=== PATIENT | male | born 1935 | race Caucasian/White ===

== ENCOUNTER 2017-08-17 15:46 | Emergency (ER) ==
[2017-08-17 15:51] VITALS: BP 221/99; TEMP 98.1; BMI 25.0
--- NOTE | 2017-08-17 16:54 | ED.PDOC ---
General ED Provider: Dr. BARRY HOU Chief Complaint: Finger Pain/Injury Stated Complaint: Lt middle finger swollen and painful; Onset yesterday morning. Has worsened and now is inflamed, more swollen with pain extending into dorsum of mid had with suggestions of red streaking moving proximal into distal forearm at wrist. Has similar event several years ago but is much worse now Time Seen by Physician: 16:35 Mode of Arrival: Walk-In Information Source: Patient Exam Limitations: No limitations Primary Care Provider: CHACORTA KELLY Referred to ED by: PCP Nursing and Triage Documentation Reviewed and Agree: Yes Reviewed sepsis parameters & appropriate labs ordered?: Yes System Inflammatory Response Syndrome: Not Applicable Sepsis Protocol: For patient's 13 years and over: Temp is 96.8 and below OR 101 and greater Pulse >90 BPM Resp >20/minute Acutely Altered Mental Status Are patient's symptoms suggestive of a new infection, such as: -Pneumonia -Skin, Soft Tissue -Endocarditis -UTI -Bone, Joint Infection -Implantable Device -Acute Abdominal Infection -Wound Infection -Meningitis -Blood Stream Catheter Infection -Unknown System Inflammatory Response Syndrome: Not Applicable Musculoskeletal Complaint Exam - Hand/Wrist Complaint/Exam Location of Pain: Reports: Left, Digit #3 Mechanism of Injury: Reports: No known trauma Onset/Duration: 2 days Symptoms Are: Worse Onset of Pain: Reports: Immediate Initial Severity: Severe Current Severity: Severe Location: Reports: Discrete Character: Reports: Sharp, Dull, Aching, Throbbing Alleviating: Reports: None Aggravating: Reports: Movement Associated Signs and Symptoms: Reports: Swelling, Redness, Fever, Tingling Related History: Reports: Similar episode Dominant Hand: Right Related Surgical History: Reports: None Hand/Wrist Findings: Present: Swelling, Erythema, Warmth Tenderness: Present: Phalanx (3rd metacarpal phalyngeal joint to distal phalynx) Review of Systems - Review Of Systems Constitutional: Reports: No symptoms Eyes: Reports: No symptoms Ears, Nose, Mouth, Throat: Reports: No symptoms Respiratory: Reports: No symptoms Cardiac: Reports: No symptoms GI: Reports: No symptoms : Reports: No symptoms Musculoskeletal: Reports: No symptoms, Joint pain, Joint swelling Skin: Reports: No symptoms Neurological: Reports: No symptoms Endocrine: Reports: No symptoms Hematologic/Lymphatic: Reports: No symptoms All Other Systems: Reviewed and Negative Past Medical History - Past Medical History Previously Healthy: Yes Endocrine: Reports: None Cardiovascular: Reports: Hypertension, Other (hyperlipidemia; takes plavix) Respiratory: Reports: None Hematological: Reports: None Gastrointestinal: Reports: None Genitourinary: Reports: None Neuro/Psych: Reports: None Musculoskeletal: Reports: Arthritis Cancer: Reports: None - Surgical History General Surgical History: Reports: None - Family History Family History: Reports: Unknown - Social History Smoking Status: Current every day smoker, Heavy tobacco smoker Hx Substance Use: No Alcohol Screening: Heavy - Immunizations Tetanus Shot up to Date: No Physical Exam - Physical Exam Appearance: Ill-appearing, Obese Ill-appearing: Moderate Pain Distress: Mild Eyes: DEDE, EOMI, Conjunctiva clear ENT: Ears normal, Nose normal, Oropharynx normal Respiratory: Airway patent, Breath sounds clear, Breath sounds equal, Respirations nonlabored Cardiovascular: RRR, Pulses normal, No rub, No murmur GI/: Soft, Nontender, No masses, Bowel sounds normal, No Organomegaly Musculoskeletal: Normal strength (Lt hand redness and swelling with ascending lymphangitis) Skin: Warm, Dry Neurological: Sensation intact, Motor intact, Alert, Oriented Psychiatric: Affect appropriate, Mood appropriate Critical Care Note - Critical Care Note Total Time (mins): 0 Course - Course Hematology/Chemistry: 08/17/17 15:15 08/17/17 17:15 Orders, Labs, Meds: Lab Review 08/17/17 08/17/17 15:15 17:15 WBC 8.50 RBC 4.40 L Hgb 15.0 Hct 42.9 MCV 97.5 H MCH 34.1 H MCHC 35.0 RDW Coeff of Elsa 12.9 Plt Count 173 Immature Gran % (Auto) 0.4 Neut % (Auto) 79.8 Lymph % (Auto) 9.2 L [place] % (Auto) 8.6 Eos % (Auto) 1.5 Baso % (Auto) 0.5 Immature Gran # (Auto) 0.0 Neut # (Auto) 6.8 Lymph # (Auto) 0.8 [place] # (Auto) 0.7 Eos # (Auto) 0.1 Baso # (Auto) 0.0 ESR 26 H Sodium 137 Potassium 4.3 Chloride 100 Carbon Dioxide 25 Anion Gap 16.3 BUN 22 H Creatinine 1.05 Estimated GFR (MDRD) 68.00 BUN/Creatinine Ratio 20.95 Glucose 102 Uric Acid 6.9 Calcium 9.6 Total Bilirubin 0.5 AST 16 ALT 14 Alkaline Phosphatase 117 Total Protein 7.5 Albumin 3.8 Globulin 3.7 Albumin/Globulin Ratio 1.03 Orders Category Date Time Status IV [ED IV/MEDIPORT/POWERPORT] .ONCE EMERGENCY 08/17/17 17:01 Active BLOOD CULTURE (ED ONLY) Stat LAB 08/17/17 15:15 Received CBC W/ AUTO DIFF Stat LAB 08/17/17 15:15 Completed CMP [COMPREHENSIVE METABOLIC PANEL] Stat LAB 08/17/17 17:15 Completed ESR Stat LAB 08/17/17 15:15 Completed RHEUMATOID ARTHRITIS FACTOR Stat LAB 08/17/17 15:15 Received URIC ACID Stat LAB 08/17/17 17:15 Completed 0.9 % Sodium Chloride [Saline Flush] MEDS 08/17/17 17:01 Active 1 syr IVF PRN PRN Clindamycin Phosphate Inj [Cleocin] MEDS 08/17/17 17:27 Discontinued 600 mg .ROUTE .STK-MED ONE Clindamycin Phosphate Inj [Cleocin] 600 mg MEDS 08/17/17 17:04 Discontinued 0.9 % Sodium Chloride [Sodium Chloride] 100 ml IV ONCE Methylprednisolone Sod Succ/Pf [Solu-Medrol 125 mg] 250 MEDS 08/17/17 18:22 Ordered mg 0.9 % Sodium Chloride [Sodium Chloride] [address] HAND LEFT WITHOUT CONTRAST Stat RADS 08/17/17 17:01 Completed Medications Generic Name Dose Route Start Last Admin Trade Name Freq PRN Reason Stop Dose Admin Methylprednisolone Sodium 54 mls @ 100 mls/hr 08/17/17 18:22 Succinate 250 mg/ Sodium IV 08/17/17 18:54 Chloride ONCE ONE Sodium Chloride 1 syr 08/17/17 17:01 08/17/17 17:44 Saline Flush IVF 1 syr PRN PRN Administration To flush IV Discontinued Medications Generic Name Dose Route Start Last Admin Trade Name Freq PRN Reason Stop Dose Admin Clindamycin Phosphate 600 mg/ 104 mls @ 208 mls/hr 08/17/17 17:04 08/17/17 17 :43 Sodium Chloride IV 08/17/17 17:33 208 mls/hr ONCE ONE Administration Vital Signs: Temp Pulse Resp BP Pulse Ox 08/17/17 15:47 98.1 F 79 20 221/99 H 95 Departure - Departure Time of Disposition: 18:30 Disposition: ADMITTED INPATIENT Discharge Problem: Cellulitis and abscess of hand Instructions: Cellulitis (ED), Connective Tissue Disorders (ED) Condition: Good Pt referred to PMD for follow-up: Yes (Dr Shafer agrees to accept pt for admit) IPMP verified?: No Allergies/Adverse Reactions: Allergies No Known Allergies Allergy (Verified 08/17/17 15:51) Home Medications: Ambulatory Orders Amlodipine Besylate [Norvasc] 5 mg PO BID 12/19/13 Clonidine HCl [Catapres] 0.1 mg PO TID 12/19/13 Clopidogrel Bisulfate [Clopidogrel] 75 mg PO DAILY 12/19/13 Lisinopril [Zestril] 40 mg PO DAILY 12/19/13 Metoprolol Tartrate [Lopressor] 50 mg PO BID 12/19/13 [place]-3 Acid Ethyl Esters [Lovaza] 1 gm PO BID 12/19/13 Rosuvastatin Calcium [Crestor] 10 mg PO BEDTIME 12/19/13 Spironolactone [Aldactone] 12.5 mg PO DAILY 12/19/13 Disposition Discussed With: Patient
[2017-08-17] MEDS ORDERED: CLEOCIN 600 MG in SODIUM CHLORIDE 100 ML IV ONE (17:04)
[2017-08-17] MEDS ORDERED: CLEOCIN ONE (17:27)
--- NOTE | 2017-08-17 18:05 | CT ---
EXAM: CT of the right hand without contrast HISTORY: Hand cellulitis swelling, third phalanx COMPARISON: None available. TECHNIQUE: Noncontrast CT of the right hand FINDINGS: Noncontrast technique limits evaluation of soft tissues. A lucent lesion is seen within the distal po sterior aspect of the radius without cortical destruction. There is a cyst within the lunate. There is mild narrowing marginal osteophyte formation of the first CMC joint. There is a small subcortica l cyst of the first metacarpal head. There is narrowing and marginal osteophyte formation of the fir st interphalangeal joint. There is severe joint space loss of the third PIP joint marginal osteophyte formation. There is a small periarticular cyst or erosion of the base of the third middle phalanx a s seen on sagittal image 38. Numerous calcifications are seen within the soft tissues adjacent to the third PIP joint. There is subcutaneous edema and soft tissue swelling of the third digit. No drainab le fluid collection is seen. No fracture or dislocation is seen. 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 Findings are nonspecific but could be related to CPPD, inflammatory arthritis or other etiology. Follow-up is recommended to document stability. Soft tissue swelling of the third digit which could represent cellulitis. No drainable fluid collect ion. Nonaggressive appearing lucent lesion of the distal radius for which radiographic follow up is recomm ended.
[2017-08-17] MEDS ORDERED: SOLU-MEDROL 125 MG 250 MG in SODIUM CHLORIDE 50 ML IV ONE (18:22)
[2017-08-17] MEDS ORDERED: SOLU-MEDROL 125 MG IVP STA (18:47)
== END 2017-08-17 19:04 | disposition other institution (70) ==
LOC: ED 15:46
DX: L03.114 Cellulitis of left upper limb (principal); L02.512 Cutaneous abscess of left hand; I10 Essential (primary) hypertension; E78.5 Hyperlipidemia, unspecified; F17.210 Nicotine dependence, cigarettes, uncomplicated; Z79.899 Other long term (current) drug therapy
CPT/HCPCS: 36415; 80053; 84550; 85025; 85651; 86430; 87040; 96365; 96375; 99283

== ENCOUNTER 2017-10-06 19:51 | Emergency (ER) | payer OTHER ==
[2017-10-06 19:59] VITALS: BP 170/89; TEMP 99.8; BMI 25.9
[2017-10-06] MEDS ORDERED: NITROSTAT SL STA (20:00)
[2017-10-06] MEDS ORDERED: ASPIRIN CHEWABLE PO STA (20:00)
--- NOTE | 2017-10-06 20:07 | ED.PDOC ---
General ED Provider: Dr. BARRY GLEZ-ER Chief Complaint: Chest Pain Stated Complaint: my chest hurts Time Seen by Physician: 20:05 Mode of Arrival: Walk-In Information Source: Patient Exam Limitations: No limitations Primary Care Provider: CHACORTA KELLY Nursing and Triage Documentation Reviewed and Agree: Yes Reviewed sepsis parameters & appropriate labs ordered?: Yes System Inflammatory Response Syndrome: Not Applicable Sepsis Protocol: For patient's 13 years and over: Temp is 96.8 and below OR 101 and greater Pulse >90 BPM Resp >20/minute Acutely Altered Mental Status Are patient's symptoms suggestive of a new infection, such as: -Pneumonia -Skin, Soft Tissue -Endocarditis -UTI -Bone, Joint Infection -Implantable Device -Acute Abdominal Infection -Wound Infection -Meningitis -Blood Stream Catheter Infection -Unknown Cardiovascular Complaint Exam - Chest Pain Complaint/Exam Onset: Gradual Duration: one hour Symptoms Are: Still present Timing: Constant Length of Chest Pain Episodes: 1 hr Initial Severity: Mild Current Severity: Moderate Location: Reports: Discrete Pain Radiates: Reports: Left arm Character: Reports: Dull, Aching, Heaviness, Pressure Aggravating: Reports: None Associated Signs and Symptoms: Reports: Short of air History of Healthcare-Acquired Pneumonia: Reports: No AMI/ACS Risk Factors: Reports: Myocardial Infarction Pulmonary Embolism Risk Factors: Reports: None Prior Care for this Complaint: No Recent Stress Test: No Recent Echo/LV Function: No JVD Present: No Subcutaneous Emphysema Present: No Diminshed Breath Sounds: No Reproducible Chest Wall Pain: No Bilateral Pulses Present: Yes Unequal Pulses Noted: No Differential Diagnoses: Acute IN, ACS Quality Indicator For Non-Traumatic Chest Pain/Syncope: EKG Performed Review of Systems - Review Of Systems Constitutional: Reports: No symptoms Eyes: Reports: No symptoms Ears, Nose, Mouth, Throat: Reports: No symptoms Respiratory: Reports: Short of air Cardiac: Reports: Chest pain GI: Reports: No symptoms : Reports: No symptoms Musculoskeletal: Reports: No symptoms Skin: Reports: No symptoms Neurological: Reports: No symptoms Endocrine: Reports: No symptoms Hematologic/Lymphatic: Reports: No symptoms All Other Systems: Reviewed and Negative Past Medical History - Past Medical History Previously Healthy: Yes Endocrine: Reports: None Cardiovascular: Reports: Hypertension, Other (hyperlipidemia; takes plavix) Respiratory: Reports: None Hematological: Reports: None Gastrointestinal: Reports: None Genitourinary: Reports: None Neuro/Psych: Reports: None Musculoskeletal: Reports: Arthritis Cancer: Reports: None - Surgical History General Surgical History: Reports: None - Family History Family History: Reports: Unknown - Social History Smoking Status: Current every day smoker, Heavy tobacco smoker Hx Substance Use: No Alcohol Screening: Heavy Lives: With family - Immunizations Tetanus Shot up to Date: No Physical Exam - Physical Exam Appearance: Well-appearing, No pain distress, Well-nourished Pain Distress: Moderate Eyes: DEDE ENT: Ears normal Neck: Supple Respiratory: Airway patent, Breath sounds clear, Breath sounds equal, Respirations nonlabored Cardiovascular: RRR, Pulses normal, No rub, No murmur GI/: Soft, Nontender, No masses, Bowel sounds normal, No Organomegaly Musculoskeletal: Normal strength, ROM intact, No edema, No calf tenderness Skin: Warm, Dry, Normal color Neurological: Sensation intact, Motor intact, Reflexes intact, Cranial nerves intact, Alert, Oriented Psychiatric: Affect appropriate, Mood appropriate, Anxious Interpretation - Radiology Interpretation Radiology Interpretation By: Radiologist Radiology Results: Negative Exam Interpreted: Portable CXR - EKG Interpretation Time of EKG #1: 20:07 Rate: Normal Rhythm: Sinus Ectopy: None [place]: NL Interpretation: nsr Re-Evaluation - Re-Evaluation Time of Re-Evaluation: 20:07 Status: Improved Vital Signs Stable: Yes Pain Level: 0 Appearance: NAD Lungs: Clear Skin: Warm and Dry Neuro: Alert and Oriented X3 CV: RRR Physician Notification - Case Discussed Physician Notified: dr sanchez Time of Notification: 20:12 Critical Care Note - Critical Care Note Total Time (mins): 20 Course - Course Hematology/Chemistry: 10/06/17 20:00 Orders, Labs, Meds: Lab Review 10/06/17 20:00 WBC 7.63 RBC 4.02 L Hgb 13.4 L Hct 38.1 L MCV 94.8 H MCH 33.3 H MCHC 35.2 RDW Coeff of Elsa 14.0 Plt Count 148 Immature Gran % (Auto) 0.4 Neut % (Auto) 69.8 Lymph % (Auto) 15.6 [place] % (Auto) 10.9 H Eos % (Auto) 2.9 Baso % (Auto) 0.4 Immature Gran # (Auto) 0.0 Neut # (Auto) 5.3 Lymph # (Auto) 1.2 [place] # (Auto) 0.8 Eos # (Auto) 0.2 Baso # (Auto) 0.0 Orders Category Date Time Status EKG-(ED ONLY) Stat CARDIO 10/06/17 19:58 Ordered TRANSFER TO OUTSIDE FACILITY .TO [facility] ( CARE 10/06/17 20:08 Active BETTY WEISS) WRITE TRANSFER/SBAR NOTE ONCE CARE 10/06/17 20:08 Active DISCHARGE ASSESSMENT ONCE DISCHARGE 10/06/17 20:08 Active WRITE DISCHARGE NOTE ONCE DISCHARGE 10/06/17 20:08 Active Crank Hand [ED POULTRY VACCINATOR APPLIED] .ONCE EMERGENCY 10/06/17 19:59 Active ED APPLY O2 .ONCE EMERGENCY 10/06/17 19:58 Active IV [ED IV/MEDIPORT/POWERPORT] .ONCE EMERGENCY 10/06/17 20:07 Active AMYLASE Stat LAB 10/06/17 20:00 Received CBC W/ AUTO DIFF Stat LAB 10/06/17 20:00 Completed COMPREHENSIVE METABOLIC PANEL Stat LAB 10/06/17 20:00 Received CREATINE KINASE Stat LAB 10/06/17 20:00 Received LIPASE Stat LAB 10/06/17 20:00 Received TROPONIN I Stat LAB 10/06/17 20:00 Received 0.9 % Sodium Chloride [Saline Flush] MEDS 10/06/17 20:07 Ordered 1 syr IVF PRN PRN Aspirin [Aspirin Chewable] MEDS 10/06/17 20:00 Discontinued 324 mg PO ONCE STA Morphine Sulfate [Morphine 2 mg/ml Syringe] MEDS 10/06/17 20:08 Ordered 2 mg IVP Q4H PRN Nitroglycerin [Nitrostat] MEDS 10/06/17 20:00 Discontinued 0.4 mg SL ONCE STA Ondansetron HCl/Pf [Zofran 4 mg/2 ml] MEDS 10/06/17 20:09 Discontinued 4 mg IVP ONCE STA CXR [CHEST, 1V AP ONLY] Stat RADS 10/06/17 19:58 Ordered Medications Generic Name Dose Route Start Last Admin Trade Name Freq PRN Reason Stop Dose Admin Morphine Sulfate 2 mg 10/06/17 20:08 Morphine 2 Mg/Ml Syringe IVP Q4H PRN Chest Pain Sodium Chloride 1 syr 10/06/17 20:07 Saline Flush IVF PRN PRN To flush IV Discontinued Medications Generic Name Dose Route Start Last Admin Trade Name Freq PRN Reason Stop Dose Admin Aspirin 324 mg 06/06/18 20:00 10/06/17 20:04 Aspirin Chewable PO 10/06/17 20:01 324 mg ONCE STA Administration Nitroglycerin 0.4 mg 10/06/17 20:00 10/06/17 20:04 Nitrostat SL 10/06/17 20:01 0.4 mg ONCE STA Administration Ondansetron HCl 4 mg 10/06/17 20:09 Zofran 4 Mg/2 Ml IVP 10/06/17 20:10 ONCE STA Vital Signs: Temp Pulse Resp BP Pulse Ox 10/06/17 19:52 99.8 F H 88 20 170/89 H 96 LEX Risk Score LEX Risk Score: Risk Score Odds of by 30D 0 0.1 (0.1-0.2) 1 0.3 (0.2-0.3) 2 0.4 (0.3-0.5) 3 0.7 (0.6-0.9) 4 1.2 (1.0-1.5) 5 2.2 (1.9-2.6) 6 3.0 (2.5-3.6) 7 4.8 (3.8-6.1) Departure - Departure Time of Disposition: 20:07 Disposition: TSF SHORT-TRM HOSP Discharge Problem: Chest pain Instructions: Chest Pain (ED) Condition: Good Pt referred to PMD for follow-up: Yes IPMP verified?: No Allergies/Adverse Reactions: Allergies No Known Allergies Allergy (Verified 10/06/17 19:55) Home Medications: Ambulatory Orders Amlodipine Besylate [Norvasc] 5 mg PO BID 12/19/13 Clopidogrel Bisulfate [Clopidogrel] 75 mg PO DAILY 12/19/13 Lisinopril [Zestril] 40 mg PO DAILY 12/19/13 Metoprolol Tartrate [Lopressor] 50 mg PO BID 12/19/13 [place]-3 Acid Ethyl Esters [Lovaza] 1 gm PO BID 12/19/13 Rosuvastatin Calcium [Crestor] 10 mg PO BEDTIME 12/19/13 Spironolactone [Aldactone] 12.5 mg PO DAILY 12/19/13 Transfer Form Completed: Yes Disposition Discussed With: Patient
[2017-10-06] MEDS ORDERED: MORPHINE 2 MG/ML SYRINGE IVP PRN (20:08)
[2017-10-06] MEDS ORDERED: ZOFRAN 4 MG/2 ML IVP STA (20:09)
--- NOTE | 2017-10-06 20:42 | DI ---
EXAM: Chest, single view, 10/06/2017 HISTORY: Chest pain COMPARISON: 12/11/2007 FINDINGS / IMPRESSION: Cardiomediastinal contours appear stable. Postoperative changes of the media stinum Diffuse interstitial prominence within both lungs. This is more severe at the lung bases. This may represent atelectasis, pulmonary edema and/or pneumonitis. No definitive pleural effusion.. No pneu mothorax.
== END 2017-10-06 20:42 | disposition short-term general hospital (02) ==
LOC: ED 19:51
DX: R07.9 Chest pain, unspecified (principal); R06.02 Shortness of breath; I10 Essential (primary) hypertension; E78.5 Hyperlipidemia, unspecified; F17.210 Nicotine dependence, cigarettes, uncomplicated; Z79.899 Other long term (current) drug therapy; Z95.1 Presence of aortocoronary bypass graft; Z86.73 Personal history of transient ischemic attack (TIA), and cerebral infarction without residual deficits
CPT/HCPCS: 36415; 80053; 82150; 82550; 83690; 84484; 85025; 93005; 93010; 96375; 99285

== ENCOUNTER 2017-12-29 13:00 | Outpatient (RCR) ==
--- NOTE | 2017-12-27 10:19 | RS.OPPTEV2 ---
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 Prior Level of Function.....Patient was independent with: ADL's, Self Care, Ambulation/Mobility Level of Function: pt amb with cane, nephews assist with carrying in groceries etc. Functional Limitations: Lifting, Carrying, Standing, Bending, Squatting, Ambulation, Community Access/Integration Current Subjective/complaints:: pt states that standing increases LBP, states that with amb his L knee feels unstable and feels like it will "give way". Treatment Side (optional): Left *Precautions: fall precautions Medical History Medical History: Hypertension, CVA/TIA, Arthritis, Cancer (prostate) Smoking Status: Current every day smoker Hx Home Medications: pt did not bring list of meds Patient's Goals: L knee to feel more stable, decrease LBP Pain Assessment - Pain Description Pain Location: L knee, LBP Pain Description: Aching Current Pain Intensity: 2 Other Comments regarding Pain:: standing increases LBP Functional Outcome Measure LE Functional Scale: 36 (55%) - G Codes & Severity Modifier G Codes & Modifier: mobility walking and moving around: current CK. mobility walking and moving around: goal CJ Source of G Code score: LE functional scale Observation - Observation Posture: Forward Head, Rounded Shoulders, Increased Thoracic Kyphosis, Decreased Lumbar Lordosis Gait - Gait Pattern General Gait Pattern Observation: Antalgic Gait, Crouched Gait, Decrease Stride Lngth (R), Decrease Stride Lngth (L) Gait Comments: pt amb with antalgic gait with pain in L knee. pt with decreased step length, flexed posture. General Range of Motion: BUE WFL's. BLE WFL's except B knees Muscle Strength: BUE 5/5,. RLE hip flex 4+/5, knee flex 4/5, ext 3-/5, ankle DF /PF 5/5. LLE hip flex 4/5, knee flex 3/5, ext 3-/5, ankle Df/PF 4/5 - ROM Lumbar Flexion: Hand reach to Mid-Thighs Sidebending to Left: Reach to Mid-thigh Sidebending to Right: Reach to Mid-thigh Lumbar Spine ROM Limitations: Soft Tissue Tightness, Muscle Weakness, Pain - Strength Trunk Extension: 3 Fair Trunk Flexion: 3 Fair Trunk Lateral Flexion: 3- Fair- - Special Tests ALFRED Test: Negative Left, Negative Right SLR Test: Negative Left, Negative Right Seated Dural Stretch Test: Negative Left, Negative Right SI Joint Compression: Negative SI Joint Distraction: Negative - Left Knee ROM Left Knee Extension: -10 Left Knee Flexion: 115 Knee ROM Limitations: Soft Tissue Tightness, Pain - Right Knee ROM Right Knee Extension: -8 Right Knee Flexion: 120 Knee ROM Limitations: Soft Tissue Tightness - Special Tests Knee Anterior Drawer Test: Negative Left Knee Posterior Drawer Test: Negative Left Knee Valgus Stress Test: Negative Left Knee Varus Stress Test: Positive Left Patella Apprehension Test: Negative Left Patella J-sign: Negative Left Palpation Palpation Findings: Tenderness, Muscle Guarding (muscle guarding noted in lumbar spine, tenderness to medial aspect of L knee) Sensation - Sensation Right Upper Extremity: Intact/Normal Left Upper Extremity: Intact/Normal Right Lower Extremity: Intact/Normal Left Lower Extremity: Intact/Normal Balance - Sitting Balance Static Sitting Balance: Good Dynamic Sitting Balance: Good - Standing Balance Static Standing Balance: Fair Dynamic Standing Balance: Poor - Comments Balance Assessment Comments: pt with poor dyn stand balance, Tinetti score: Interventions - Exercise/Activities/Manual Therapy Exercises/Activities: pt performed QS, SAQ, SLR, hip abd/add, hamstring stretch Total minutes of Exercise: 10 Manual Therapy: na HOME EXERCISE PROGRAM: pt given written HEP including: QS, SAQ, SLR, hip abd/add , hamstring stretch - Charges Timed Code Treatment Minutes: 51 Total Treatment Time: 62 Procedures billed for this date of service:: eval med, ex EVALUATION COMPLEXITY LEVEL EVALUATION COMPLEXITY LEVEL: HISTORY: Medium (HTN, CVA, OA, ), EXAM OF BODY SYSTEMS: Medium (pain, strength, balance, gait), CLINICAL PRESENTATION: Medium, CLINICAL DECISION MAKING: Medium Assessment Assessment: pt presents with decreased ROM, pain, decreased gait ability, pt at high risk of falls. Patient Education: Home Exercise Program, Education of Plan of Care Rehab Potential: Good Short Term Goals Goal #1: pt L knee ROM flex 118 ext -5 Goal to be met by: 01/07/18 Goal #2: pt with improved strength LLE knee flex/ext 4-/5 Goal to be met by: 01/07/18 Goal #3: pt amb in dept with no LOB with improved sequencing and posture Goal to be met by: 01/07/18 Goal #4: pt independent with initial HEP Goal to be met by: 01/07/18 Cardiology Nurse Practitioner Goals Goal #1: pt amb community distances with improved sequence, no LOB, no antalgic gait Goal to be met by: 01/21/18 Goal #2: pt report no falls since eval Goal to be met by: 01/21/18 Goal #3: pt report ability to perform intramural director with less pain Goal to be met by: 01/21/18 Goal #4: L knee ROM and strength improved to allow for up/down steps safely Goal to be met by: 01/21/18 Plan - Treatment to be Provided Procedures: Therapeutic Exercises, Therapeutic Activity, Gait Training, Manual Therapy, Patient Education Modalities: Cryotherapy, Hot Packs - Treatment Plan Frequency: 2 X week Duration: 4 weeks ORDER # VISITS AND/OR THROUGH DATE: 01/21/18 - Treatment Code (1) Gait abnormality Code(s): R26.9 - UNSPECIFIED ABNORMALITIES OF GAIT AND MOBILITY (2) Muscle weakness Code(s): M62.81 - MUSCLE WEAKNESS (GENERALIZED) (3) Low back pain potentially associated with radiculopathy Code(s): M54.5 - LOW BACK PAIN
--- NOTE | 2017-12-27 16:11 | RS.OPPTDN ---
Subjective Date of Note: 12/27/17 Date of Evaluation: 12/24/17 Payer Source: MEDICARE Treatment Diagnosis: OA, weakness, late effect CVA, L sided low back pain with L sciatica Current Subjective/complaints:: Patient reports moderate L knee and lumbar pain today. *Precautions: fall precautions Pain Assessment - Pain Description Pain Description: Aching, Chronic Current Pain Intensity: 5 - Heat/Cryotherapy Treatment: Hot Pack (20 mins to back prior to exercises) Interventions - Exercise/Activities/Manual Therapy Exercises/Activities: 35 mins. total ,3/10 reps each of QS, SAQ, SLR, hip abd/ add, hamstring stretches ,LTR,L piriformis stretch Total minutes of Exercise: 35 Manual Therapy: na Total minutes of Manual Therapy: 0 HOME EXERCISE PROGRAM: pt given written HEP including: QS, SAQ, SLR, hip abd/add , hamstring stretch - Charges Timed Code Treatment Minutes: 35 Total Treatment Time: 55 Procedures billed for this date of service:: hp,ex 2 Assessment: Patient fatigues easily .He has moderate hamstring tightness , tolerates the stretches fair today.The L knee pain is only present when weight bearing.He has antalgic gait ,using cane.He is attentive and motivated to improve. Patient Education: Education of diagnosis, Body/Joint mechanics, Home Exercise Program, Home Safety, Activity Modification, Education of Plan of Care Short Term Goals Goal #1: pt L knee ROM flex 118 ext -5 Goal to be met by: 01/07/18 Goal #2: pt with improved strength LLE knee flex/ext 4-/5 Goal to be met by: 01/07/18 Goal #3: pt amb in dept with no LOB with improved sequencing and posture Goal to be met by: 01/07/18 Goal #4: pt independent with initial HEP Goal to be met by: 01/07/18 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 Goal:: Progressing Senior Care Goals Goal #1: pt amb community distances with improved sequence, no LOB, no antalgic gait Goal to be met by: 01/21/18 Goal #2: pt report no falls since eval Goal to be met by: 01/21/18 Goal #3: 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
--- NOTE | 2017-12-29 14:05 | RS.OPPTDN ---
Subjective Date of Note: 12/29/17 Visit #: 3 Date of Evaluation: 12/24/17 Payer Source: MEDICARE Treatment Diagnosis: OA, weakness, late effect CVA, L sided low back pain with L sciatica Current Subjective/complaints:: Patient reports increased soreness after last session,but lessened yesterday.He feels the therapy is already making him feel better,easier to get in/out of the car. *Precautions: fall precautions Pain Assessment - Pain Description Pain Location: lumbar Pain Description: Dull, Aching, Chronic Current Pain Intensity: 3-4/10 - Heat/Cryotherapy Treatment: Hot Pack (20 mins. prior to exercises.) Interventions - Exercise/Activities/Manual Therapy Exercises/Activities: 35 mins. total ,3/15 reps each on leg press @ 30 #,seated calf raises @ 15 #.Isometric hip abd /adduction.HEP review. Total minutes of Exercise: 35 Manual Therapy: na Total minutes of Manual Therapy: 0 HOME EXERCISE PROGRAM: pt given written HEP including: QS, SAQ, SLR, hip abd/add , hamstring stretch - Charges Timed Code Treatment Minutes: 35 Total Treatment Time: 55 Procedures billed for this date of service:: hp,ex 2 Assessment: Patient has steadier sit to stand transfers today.He requires cues to control speed of exercise as he fatigues.He has no increased LBP with resistive exercises today. Patient Education: Education of diagnosis, Body/Joint mechanics, Home Exercise Program, Home Safety, Activity Modification, Education of Plan of Care Patient demonstrates compliance with HEP?: Yes Short Term Goals Goal #1: pt L knee ROM flex 118 ext -5 Goal to be met by: 01/07/18 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 Goal:: Progressing Goal #2: pt with improved strength LLE knee flex/ext 4-/5 Goal to be met by: 01/07/18 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 Goal:: Progressing Goal #3: pt amb in dept with no LOB with improved sequencing and posture Goal to be met by: 01/07/18 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 Goal:: Progressing Goal #4: pt independent with initial HEP Goal to be met by: 01/07/18 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 Goal:: 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
== END 2017-12-31 23:59 ==
PROVIDERS: ATTEND Family Medicine
DX: M19.90 Unspecified osteoarthritis, unspecified site (principal); R53.1 Weakness; Z86.73 Personal history of transient ischemic attack (TIA), and cerebral infarction without residual deficits; M54.42 Lumbago with sciatica, left side; R26.9 Unspecified abnormalities of gait and mobility; M54.5 Low back pain; M62.81 Muscle weakness (generalized)

== ENCOUNTER 2018-01-18 13:00 | Outpatient (RCR) | payer OTHER ==
--- NOTE | 2018-01-04 11:48 | RS.CXNS ---
Date of scheduled appointment: 01/04/18 Type: Cancel Reason for Cancel/NS: Called ,is sick today.
--- NOTE | 2018-01-06 15:16 | RS.OPPTDN ---
Subjective Date of Note: 01/06/18 Visit #: 4 Date of Evaluation: 12/24/17 Payer Source: MEDICARE Treatment Diagnosis: OA, weakness, late effect CVA, L sided low back pain with L sciatica Current Subjective/complaints:: Patient reports feeling very weak today.He has had nausea,vomiting ,and diahrrea the past 3-4 days,but wants to try his best.He reports he does not have an elevated temp. today. *Precautions: fall precautions - Heat/Cryotherapy Treatment: Hot Pack (20 mins. to lumbar prior to exercises.) Interventions - Exercise/Activities/Manual Therapy Exercises/Activities: 25 mins. total ,3/15 reps each on leg press @ 30 #,then single leg press @ 15 #,,3/10 each.Patient requests to stop after these exercises due to not feeling as well the past few days.. Total minutes of Exercise: 25 Manual Therapy: na Total minutes of Manual Therapy: 0 HOME EXERCISE PROGRAM: pt given written HEP including: QS, SAQ, SLR, hip abd/add , hamstring stretch - Charges Timed Code Treatment Minutes: 25 Total Treatment Time: 45 Procedures billed for this date of service:: hp,ex 2 Assessment: Patient requires more frequent rest periods today,as he reports feeling "washed out " from being sick recently.He does continue be highly motivated to improve and we discussed increasing the activities as he feel better.He can benefit from skilled PT to increase LE strength and reduce back pain,resulting in more energy efficient gait ,and reduce risk of injury doing ADL's. Patient Education: Education of diagnosis, Body/Joint mechanics, Home Exercise Program, Home Safety, Activity Modification, Education of Plan of Care Patient demonstrates compliance with HEP?: Yes Short Term Goals Goal #1: pt L knee ROM flex 118 ext -5 Goal to be met by: 01/07/18 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 Goal:: Progressing Comments:: not assessed today Goal #2: pt with improved strength LLE knee flex/ext 4-/5 Goal to be met by: 01/07/18 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 Goal:: Progressing Goal #3: pt amb in dept with no LOB with improved sequencing and posture Goal to be met by: 01/07/18 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 Goal:: Progressing Goal #4: pt independent with initial HEP Goal to be met by: 01/07/18 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 Goal:: Progressing Correction Goals Goal #1: pt amb community distances with improved sequence, no LOB, no antalgic gait Goal to be met by: 01/21/18 Goal #2: pt report no falls since eval Goal to be met by: 01/21/18 Goal #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
--- NOTE | 2018-01-07 14:02 | RS.OPPTDN ---
Subjective Date of Note: 01/07/18 Visit #: 5 Date of Evaluation: 12/24/17 Payer Source: MEDICARE Treatment Diagnosis: OA, weakness, late effect CVA, L sided low back pain with L sciatica Current Subjective/complaints:: Patient reports no increased soreness or pain after yesterday's session ,only fatigue.He reports no pain today. *Precautions: fall precautions Pain Assessment - Pain Description Current Pain Intensity: 0 - Heat/Cryotherapy Treatment: Hot Pack (20 mins. prior to exercises) Interventions - Exercise/Activities/Manual Therapy Exercises/Activities: 35 mins. total ,supine SKTC,DKTC,90/90 hamstring stretches ,bilateral knee extension lag ~ 20 degrees.3/15 reps each on leg press @ 30 #. Total minutes of Exercise: 35 Manual Therapy: na Total minutes of Manual Therapy: 0 HOME EXERCISE PROGRAM: pt given written HEP including: QS, SAQ, SLR, hip abd/add , hamstring stretch - Charges Timed Code Treatment Minutes: 35 Total Treatment Time: 55 Procedures billed for this date of service:: hp,ex 2 Assessment: Patient has moderate hamstring tightness,decreased step length bilaterally today.He has increased difficulty with initial sit to stand today, possibly due to being sick earlier this week,c/o feeling "washed out".He has good technique with resistive exercises. Patient Education: Education of diagnosis, Body/Joint mechanics, Home Exercise Program, Home Safety, Activity Modification, Education of Plan of Care Patient demonstrates compliance with HEP?: Yes Short Term Goals Goal #1: pt L knee ROM flex 118 ext -5 Goal to be met by: 01/07/18 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 Goal:: No Change Goal #2: pt with improved strength LLE knee flex/ext 4-/5 Goal to be met by: 01/07/18 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 Goal:: Progressing Goal #3: pt amb in dept with no LOB with improved sequencing and posture Goal to be met by: 01/07/18 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 Goal:: Progressing Goal #4: pt independent with initial HEP Goal to be met by: 01/07/18 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 Goal:: 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
--- NOTE | 2018-01-11 14:19 | RS.OPPTDN ---
Subjective Date of Note: 01/11/18 Visit #: 6 Date of Evaluation: 12/24/17 Payer Source: MEDICARE Treatment Diagnosis: OA, weakness, late effect CVA, L sided low back pain with L sciatica Current Subjective/complaints:: Patient says that his L leg is bothering him more so today. He says he does not know if he will be able to grocery shop because of it. *Precautions: fall precautions Pain Assessment - Pain Description Pain Location: L LE and low back - Heat/Cryotherapy Treatment: Hot Pack (20 mins to the mid to low back in sitting) Interventions - Exercise/Activities/Manual Therapy Exercises/Activities: Patient receives passive stretching bilaterally of: SKTC , HS, HS at 90/90, heel cords, and lower trunk rotation. Leg presses of 30# 2x20 slow speed and with rests. Assisted patient to car via w/c due to elevated fatigue level. Total minutes of Exercise: 30 Manual Therapy: na HOME EXERCISE PROGRAM: pt given written HEP including: QS, SAQ, SLR, hip abd/add , hamstring stretch - Charges Timed Code Treatment Minutes: 30 Total Treatment Time: 50 Procedures billed for this date of service:: hp, ex2 Assessment: Patient presents with SC to the R and holding L anterior thigh with ambulation to our dept. He appears to pamela all therex well, but with slightly more soreness with HS stretching and placing hip in neutral with SKTC for the L. Patient Education: Education of diagnosis, Body/Joint mechanics, Home Safety Patient demonstrates compliance with HEP?: Yes (when he can) Short Term Goals Goal #1: pt L knee ROM flex 118 ext -5 Goal to be met by: 01/07/18 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 Goal:: No Change Goal #2: pt with improved strength LLE knee flex/ext 4-/5 Goal to be met by: 01/07/18 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 Goal:: Progressing Goal #3: pt amb in dept with no LOB with improved sequencing and posture Goal to be met by: 01/07/18 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 Goal:: Progressing Goal #4: pt independent with initial HEP Goal to be met by: 01/07/18 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 Goal:: Progressing Jail Goals Goal #1: pt amb community distances with improved sequence, no LOB, no antalgic gait Goal to be met by: 01/21/18 Goal #2: pt report no falls since eval Goal to be met by: 01/21/18 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 goal: Progressing Goal #3: 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
--- NOTE | 2018-01-13 14:07 | RS.OPPTDN ---
Subjective Date of Note: 01/13/18 Visit #: 7 Date of Evaluation: 12/24/17 Payer Source: MEDICARE Treatment Diagnosis: OA, weakness, late effect CVA, L sided low back pain with L sciatica Current Subjective/complaints:: Reports he strained his back today getting out of the tub.He reports doing his HEP often.He also is more aware to change positions frequently for pain relief. *Precautions: fall precautions Pain Assessment - Pain Description Pain Location: lumbar /L hip area Pain Description: Tightness, Dull, Aching, Chronic Current Pain Intensity: not rated today - Heat/Cryotherapy Treatment: Hot Pack (20 mis. prior to exercises) Interventions - Exercise/Activities/Manual Therapy Exercises/Activities: Patient receives passive stretching today in R sidelying ,then supine. L Hip flexors stretches with knee extended ,then flexed to 90 degrees.Supine stretches of SKTc,DKTC,lower trunk rotation in hooklying. Total minutes of Exercise: 30 Manual Therapy: na Total minutes of Manual Therapy: 0 HOME EXERCISE PROGRAM: pt given written HEP including: QS, SAQ, SLR, hip abd/add , hamstring stretch - Charges Timed Code Treatment Minutes: 30 Total Treatment Time: 50 Procedures billed for this date of service:: hp,ex 2 Assessment: Patient requires supervision for proper stretches to the L hip flexors and the hamstrings.He has residual tone in the L LE from hstory of CVA.He has increased tightness in the L lumbar as opposed to the R when doing lower trunk rotation .The L hip flexor stretch elicits pain when hip is in extension. Patient Education: Education of diagnosis, Body/Joint mechanics, Home Exercise Program, Home Safety, Activity Modification, Education of Plan of Care Patient demonstrates compliance with HEP?: Yes Short Term Goals Goal #1: pt L knee ROM flex 118 ext -5 Goal to be met by: 01/07/18 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 Goal:: Progressing Goal #2: pt with improved strength LLE knee flex/ext 4-/5 Goal to be met by: 01/07/18 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 Goal:: Progressing Goal #3: pt amb in dept with no LOB with improved sequencing and posture Goal to be met by: 01/07/18 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 Goal:: Progressing Goal #4: pt independent with initial HEP Goal to be met by: 01/07/18 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 Goal:: 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 Goal #1: pt amb community distances with improved sequence, no LOB, no antalgic gait Goal to be met by: 01/21/18 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 goal: Progressing Goal #2: pt report no falls since eval Goal to be met by: 01/21/18 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 goal: Progressing Goal #3: 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
--- NOTE | 2018-01-18 14:27 | RS.OPPTDN ---
Subjective Date of Note: 01/18/18 Visit #: 8 Date of Evaluation: 12/24/17 Payer Source: MEDICARE Treatment Diagnosis: OA, weakness, late effect CVA, L sided low back pain with L sciatica Current Subjective/complaints:: Patient is pleased with his progeres,feels much steadier on his feet,less back pain .He is agreeable to D/C plan today,is comfortable with HEP. *Precautions: fall precautions Pain Assessment - Pain Description Pain Location: lumbar/L LE Pain Description: Dull, Aching Pain Description: minimal in back,L Leg feels tight - Heat/Cryotherapy Treatment: Hot Pack (20 mins. prior to exercises) Interventions - Exercise/Activities/Manual Therapy Exercises/Activities: 30 mins. total ,on leg press.07/15 reps @ 45 # ,then 05/17 reps. @ 60 #.Isometric hip abd /adduction.HEP review of copies given. Total minutes of Exercise: 30 Manual Therapy: na Total minutes of Manual Therapy: 0 HOME EXERCISE PROGRAM: pt given written HEP including: QS, SAQ, SLR, hip abd/add , hamstring stretch - Charges Timed Code Treatment Minutes: 30 Total Treatment Time: 50 Procedures billed for this date of service:: hp,ex 2 Assessment: Patient has met rehab potential at this time,has good demo of exercises.He has steadier gait as the LE"s have increased strength.The back pain remains minimal,and he reports change of position decreases the pain.He is aware of D/C plan today. Patient Education: Education of diagnosis, Body/Joint mechanics, Home Exercise Program, Home Safety, Activity Modification, Education of Plan of Care Patient demonstrates compliance with HEP?: Yes Short Term Goals Goal #1: pt L knee ROM flex 118 ext -5 Goal to be met by: 01/07/18 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 Goal:: Partially Met Goal #2: pt with improved strength LLE knee flex/ext 4-/5 Goal to be met by: 01/07/18 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 Goal:: Met Goal #3: pt amb in dept with no LOB with improved sequencing and posture Goal to be met by: 01/07/18 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 Goal:: Met Goal #4: pt independent with initial HEP Goal to be met by: 01/07/18 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 Goal #1: pt amb community distances with improved sequence, no LOB, no antalgic gait Goal to be met by: 01/21/18 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 goal: Progressing Goal #2: pt report no falls since eval Goal to be met by: 01/21/18 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 goal: Met Goal #3: 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
--- NOTE | 2018-01-18 15:19 | RS.OPPTDC ---
Date of Discharge: 01/18/18 Date of Evaluation: 12/24/17 Number of Visits: 8 Treatment Diagnosis: OA, weakness, late effect CVA, L sided low back pain with L sciatica Current Level of Function: LLE 4-/5, Independent with HEP, able to ascend/ descend steps safely with no LOB with use of cane. Current Complaints/Gains: pt states he feels comfortable with DC plan. pt has written HEP and good understanding of safety precautions Functional Outcome Measure - G Codes & Severity Modifier G Codes & Modifier: mobility walking and moving around: goal CJ. mobility walking and moving around: DC CK Source of G Code score: LE funcitonal scale as well as pt level of function Observation - Observation Posture: Forward Head, Rounded Shoulders, Increased Thoracic Kyphosis, Decreased Lumbar Lordosis Handedness: Right Gait - Gait Pattern General Gait Pattern Observation: No Deviations/Normal General Special Tests: continues with significant tightness in IT band Interventions - Exercise/Activities/Manual Therapy Exercises/Activities: n/a Manual Therapy: na HOME EXERCISE PROGRAM: pt given written HEP including: QS, SAQ, SLR, hip abd/add , hamstring stretch - Charges Timed Code Treatment Minutes: n/a Total Treatment Time: n/a Procedures billed for this date of service:: n/a Assessment Assessment: pt has met STG 2, 3 and LTG 2. pt has made progress with transfers, gait as well as strength. pt is independent with HEP. Patient Education: Home Exercise Program, Education of Plan of Care Rehab Potential: Good Short Term Goals Goal #1: pt L knee ROM flex 118 ext -5 Goal to be met by: 01/07/18 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 Goal:: Partially Met Goal #2: pt with improved strength LLE knee flex/ext 4-/5 Goal to be met by: 01/07/18 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 Goal:: Met Goal #3: pt amb in dept with no LOB with improved sequencing and posture Goal to be met by: 01/07/18 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 Goal:: Met Goal #4: pt independent with initial HEP Goal to be met by: 01/07/18 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 Goal:: Partially Met Senior Living Goals Goal #1: pt amb community distances with improved sequence, no LOB, no antalgic gait Goal to be met by: 01/21/18 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 goal: Progressing Goal #2: pt report no falls since eval Goal to be met by: 01/21/18 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 goal: Met Goal #3: 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
== END 2018-01-30 23:59 ==
PROVIDERS: ATTEND Family Medicine
DX: M19.90 Unspecified osteoarthritis, unspecified site (principal); R53.1 Weakness; M54.42 Lumbago with sciatica, left side; Z86.73 Personal history of transient ischemic attack (TIA), and cerebral infarction without residual deficits; R26.9 Unspecified abnormalities of gait and mobility; M62.81 Muscle weakness (generalized); M54.5 Low back pain

== ENCOUNTER 2018-10-11 16:29 | Outpatient (CLI) ==
--- NOTE | 2018-10-11 17:44 | DI ---
EXAM: Three views of the right hand HISTORY: Effusion, right hand TECHNIQUE: AP lateral, oblique views of the right hand were obtained. FINDINGS: No acute fractures are seen. There is moderate loss of joint space seen within the interp halangeal joints of the right hand. There are no erosions. Mild soft tissue swelling is identified along the second, third and fourth digits. IMPRESSION: No acute fractures are seen. 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
== END 2018-10-11 16:30 | disposition home or self-care (01) ==
LOC: RAD 16:29
PROVIDERS: ATTEND Family Medicine
DX: M25.441 Effusion, right hand (principal); L53.9 Erythematous condition, unspecified; Z87.39 Personal history of other diseases of the musculoskeletal system and connective tissue
CPT/HCPCS: 36415; 80053; 84550; 85025; 85651

== ENCOUNTER 2022-09-18 06:48 | Observation (INO) ==
[2022-09-18] MEDS ORDERED: DUONEB NEB ONE (07:01)
[2022-09-18] MEDS ORDERED: SOLU-MEDROL 125 MG IVP STA (07:01)
[2022-09-18] MEDS ORDERED: PULMICORT 0.25 MG/2 ML NEB ONE (07:01)
[2022-09-18 07:13] LABS: BASOPHILS % (AUTO) 0.3 % (0.0-3.0); EOSINOPHILS # (AUTO) 0.1 K/ul (0.0-0.7); EOSINOPHILS % (AUTO) 1.2 % (0.0-7.0); HEMATOCRIT 40.8 % (42.0-52.0); HEMOGLOBIN 13.7 g/dl (14.0-18.0); IMMATURE GRANULOCYTE % (AUTO) 0.4 % (0.0-5.0); LYMPHOCYTES # (AUTO) 0.7 K/uL (0.60-3.4); LYMPHOCYTES % (AUTO) 10.5 (10.0-50.0); MEAN CORPUSCULAR HEMOGLOBIN 31.3 pg (27.0-31.0); MEAN CORPUSCULAR HGB CONC 33.6 (31.8-35.4); MEAN CORPUSCULAR VOLUME 93.2 fl (80.0-94.0); MONOCYTES # (AUTO) 0.8 K/uL (0.4-2.0); MONOCYTES % (AUTO) 11.9 (0-10); NEUTROPHILS # (AUTO) 5.2 K/ul (2.0-6.9); NEUTROPHILS % (AUTO) 75.7 % (42.2-75.2); PLATELET COUNT 141 10^3/uL (140-440); RED BLOOD COUNT 4.38 10^6/ul (4.70-6.10); WHITE BLOOD COUNT 6.87 K/ul (4.2-10.2)
--- NOTE | 2022-09-18 07:15 | ED.PDOC ---
General ED Provider: Dr. 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 Becker Patient compliant with dual antiplatelet and antihypertensive meds Patient denies falls or injuries Patient denies fevers or chills He reports eating and drinking less Patient stable Time Seen by Provider: 09/18/22 06:50 Information Source: Patient and EMT Primary Care Provider: BRANDI BECKER MD Nursing and Triage Documentation Reviewed and Agree: Yes Does patient meet sepsis criteria?: No System Inflammatory Response Syndrome: Not Applicable Sepsis Protocol: For patient's 13 years and over: Temp is 96.8 and below OR 101 and greater Pulse >90 BPM Resp >20/minute Acutely Altered Mental Status Are patient's symptoms suggestive of a new infection, such as: -Pneumonia -Skin, Soft Tissue -Endocarditis -UTI -Bone, Joint Infection -Implantable Device -Acute Abdominal Infection -Wound Infection -Meningitis -Blood Stream Catheter Infection -Unknown Review of Systems Review Of Systems Constitutional: Reports Weakness; Denies Chills, Fever or Sweats Eyes: Denies Blindness, Blurred vision or Vision change Ears, Nose, Mouth, Throat: Denies Ear pain, Ear discharge or Nose pain Respiratory: Denies Cough, Orthopnea, Short of air, Stridor or Wheezing Cardiac: Denies Chest pain, Edema, Irregular heart rate or Lightheadedness GI: Denies Abdomen distended, Abdominal pain, Blood streaked bowels, Constipated or Diarrhea : Denies Burning, Dysuria or Frequency Musculoskeletal: Denies Muscle pain or Muscle stiffness Skin: Reports Lesions; Denies Bruising or Dryness Neurological: Denies Anxiety or Depressed Endocrine: Denies Excessive sweating or Flushing Hematologic/Lymphatic: Reports No symptoms All Other Systems: Reviewed and Negative [facility] Medical History AAA (abdominal aortic aneurysm) I71.4 - Abdominal aortic aneurysm, without rupture (ICD-10) Arthritis M19.90 - Unspecified osteoarthritis, unspecified site (ICD-10) Cerebrovascular accident I63.9 - Cerebral infarction, unspecified (ICD-10) Chronic arthritis M19.90 - Unspecified osteoarthritis, unspecified site (ICD-10) Gout (09/24/16) M10.9 - Gout, unspecified (ICD-10) Hyperlipidemia E78.5 - Hyperlipidemia, unspecified (ICD-10) Insomnia G47.00 - Insomnia, unspecified (ICD-10) 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 - Hypertensive chronic kidney disease with stage 1 through stage 4 chronic kidney disease, or unspecified chronic kidney disease (ICD-10) Peripheral vascular disease I73.9 - Peripheral vascular disease, unspecified (ICD-10) Prostate cancer C61 - Malignant neoplasm of prostate (ICD-10) Stroke I63.9 - Cerebral infarction, unspecified (ICD-10) Family History FATHER Cardiac disease Hypertension Mother Cancer BROTHER Cardiac disease Social History Smoking and tobacco status: Current every day smoker Surgical History 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) Z95.1 - Presence of aortocoronary bypass graft (ICD-10) Status post hernia repair Z98.890 - Other specified postprocedural states (ICD-10) Physical Exam Physical Exam Appearance: Reports Well-appearing, Well-nourished and Other (Disheveled dirty clothes smells of tobacco) Ill-appearing: Not Applicable Pain Distress: Not Applicable Eyes: Reports DEDE and EOMI ENT: Reports Ears normal, Nose normal and Other (Uvula midline poor dentition) Neck: Supple Respiratory: Reports Airway patent and Wheezes (bibasilar posterior) Cardiovascular: Reports RRR and Pulses normal; Denies Tachycardia or Bradycardia GI/: Reports Soft and Nontender Musculoskeletal: Reports Normal strength and ROM intact; Denies No edema or No calf tenderness Skin: Reports Warm, Dry and Other (BL LE with [place] stasis, onychomycosis, uncut long toenails and dirty feet) Neurological: Reports Sensation intact and Motor intact Psychiatric: Reports Affect appropriate Interpretation EKG Interpretation Time of EKG #1: 06:57 Rate: Normal Rhythm: Sinus Ectopy: None [place]: Left ST Segment: Normal Interpretation: rrr rate 69, no qt prolongation, interpreted by me EKG Interpretation By: ED Physician Procedures Additional Procedures Additional Procedures: Other (Toenails debrided no complications, patient tolerated procedure well) Critical Care Note Critical Care Note Total Critical Care Time (mins): 0 Course Course 09/18/22 07:07 09/18/22 07:07 Orders, Labs, Meds: Lab Review 09/18/22 09/18/22 09/18/22 07:00 07:07 07:09 WBC 6.87 RBC 4.38 L Hgb 13.7 L Hct 40.8 L MCV 93.2 MCH 31.3 H MCHC 33.6 RDW Coeff of Elsa 14.0 Plt Count 141 Immature Gran % (Auto) 0.4 Neut % (Auto) 75.7 H Lymph % (Auto) 10.5 [place] % (Auto) 11.9 H Eos % (Auto) 1.2 Baso % (Auto) 0.3 Neut # (Auto) 5.2 Lymph # (Auto) 0.7 [place] # (Auto) 0.8 Eos # (Auto) 0.1 Baso # (Auto) 0.0 Immature Gran # (Auto) 0.0 Sodium 133.4 L Potassium 3.53 Chloride 99.1 Carbon Dioxide 27.5 Anion Gap 10.33 BUN 25.7 H Creatinine 1.28 H Estimated GFR (MDRD) 53.00 BUN/Creatinine Ratio 20.07 Glucose 113.0 H Lactic Acid 0.89 Calcium 8.60 Total Bilirubin 1.18 AST 18.5 ALT 9.9 Alkaline Phosphatase 116.7 Total Creatine Kinase 31.0 L Troponin I 0.036 Total Protein 7.03 Albumin 4.09 Globulin 2.94 Albumin/Globulin Ratio 1.39 D-Dimer 2212.71 H Influ A Molecular Assay Negative by naat Influ B Molecular Assay Negative by naat RSV Antigen Negative by naat SARS CoV-2 RNA Rapid SHARLA Negative 09/18/22 09:03 WBC RBC Hgb Hct MCV MCH MCHC RDW Coeff of Elsa Plt Count Immature Gran % (Auto) Neut % (Auto) Lymph % (Auto) [place] % (Auto) Eos % (Auto) Baso % (Auto) Neut # (Auto) Lymph # (Auto) [place] # (Auto) Eos # (Auto) Baso # (Auto) Immature Gran # (Auto) Sodium Potassium Chloride Carbon Dioxide Anion Gap BUN Creatinine Estimated GFR (MDRD) BUN/Creatinine Ratio Glucose Lactic Acid Calcium Total Bilirubin AST ALT Alkaline Phosphatase Total Creatine Kinase Troponin I 0.033 Total Protein Albumin Globulin Albumin/Globulin Ratio D-Dimer Influ A Molecular Assay Influ B Molecular Assay RSV Antigen SARS CoV-2 RNA Rapid SHARLA Orders Category Date Time Status OBSERVATION [PLACE PATIENT OBSERVATION] .TO MEDSURG ADMISSION 09/18/22 10:37 Active (MONITORED BED) EKG-(ED ONLY) Stat CARDIO 09/18/22 06:57 Completed NPO REMINDER: IMAGING ONCE CARE 09/18/22 08:51 Active TELEMETRY MONITORING TELE CARE 09/18/22 10:37 Active ED APPLY O2 .ONCE EMERGENCY 09/18/22 06:57 Active ED IV/MEDIPORT/POWERPORT .ONCE EMERGENCY 09/18/22 06:57 Active CBC W/ AUTO DIFF Stat LAB 09/18/22 07:07 Completed COMPREHENSIVE METABOLIC PANEL Stat LAB 09/18/22 07:07 Completed CREATINE KINASE Stat LAB 09/18/22 07:07 Completed D-DIMER Stat LAB 09/18/22 07:07 Completed FLU A & B MOLECULAR [FLU A/B MOLECULAR] Stat LAB 09/18/22 07:00 Completed LACTIC ACID Stat LAB 09/18/22 07:07 Completed RSV Stat LAB 09/18/22 07:09 Completed SARS COV-2 RNA RAPID SHARLA Stat LAB 09/18/22 07:09 Completed TROPONIN I Stat LAB 09/18/22 07:07 Completed TROPONIN I Stat LAB 09/18/22 09:03 Completed UA [URINALYSIS C & S IF INDICATED] Stat LAB 09/18/22 07:05 Uncollected 0.9 % Sodium Chloride [Saline Flush] MEDS 09/18/22 06:57 Active 1 syr IVF PRN PRN Budesonide [Pulmicort 0.25 mg/2 ml] MEDS 09/18/22 07:01 Discontinued 0.25 mg NEB ONCE ONE Ipratropium/Albuterol Neb [Duoneb] MEDS 09/18/22 07:01 Discontinued 3 ml NEB ONCE ONE Methylprednisolone Sod Succ/Pf [Solu-Medrol 125 mg] MEDS 09/18/22 07:01 Discontinued 125 [address] IVP ONCE STA CT CHEST PE PROTOCOL Stat RADS 09/18/22 08:[address] HEAD W/O CONTRAST Stat RADS 09/18/22 11:18 Completed HIP, LEFT 2VWS W OR W/O PELVIS Stat RADS 09/18/22 11:18 Ordered KNEE, LEFT 1 OR 2 VIEWS Stat RADS 09/18/22 11:18 Ordered US VENOUS SCAN BRUCE LEGS [U/S VENOUS SCAN BRUCE LEGS] Stat RADS 09/18/22 08:51 Completed OT CONSULTATION Routine THERAPIES 09/18/22 Ordered PT CONSULT Routine THERAPIES 09/18/22 Ordered Medications Generic Name Dose Route Start Last Admin Trade Name Freq PRN Reason Stop Dose Admin Sodium Chloride 1 syr 09/18/22 06:57 09/18/22 07:19 0.9% Sodium Chloride 10 Ml Disp.Syrin IVF 1 syr PRN PRN Administration To flush IV Discontinued Medications Generic Name Dose Route Start Last Admin Trade Name Freq PRN Reason Stop Dose Admin Albuterol/Ipratropium 3 ml 09/18/22 07:01 09/18/22 08:00 Ipratropium/Albuterol Vial.[facility] 09/18/22 07:02 3 ml ONCE ONE Administration Budesonide 0.25 mg 09/18/22 07:01 09/18/22 08:00 Budesonide 0.25 Mg/2 Ml Vial.[facility] 09/18/22 07:02 0.25 mg ONCE ONE Administration Methylprednisolone Sodium Succinate 125 mg 09/18/22 07:01 09/18/22 07:18 Methylprednisolone Sod Succ/Pf 125 Mg/2 Ml Vial IVP 09/18/22 07:02 125 mg ONCE STA Administration Vital Signs: Temp Pulse Resp BP Pulse Ox 09/18/22 06:49 97.4 F L 72 25 H 143/72 H 96 MDM: Patient is a 87 yo M here for inability to walk Patient afebrile and vitally stable Hx from patient, chart review by me Consults to Hospitalist and observation stay 3+ labs and 3 images reviewed by me Toenails cut to avoid growing back into skin to cause infection WDX: Cannot walk, tobacco use, copd, weakness and incidental findings acute condition moderate complexity DDX; I considered sepsis, ACS, PE but these were not found Patient sent to Obs with PAC Cowsert Patient and I discussed all findings and plan Risks benefits and alternatives discussed LEX Risk Score LEX Risk Score: Risk Score Odds of by 30D 0 0.1 (0.1-0.2) 1 0.3 (0.2-0.3) 2 0.4 (0.3-0.5) 3 0.7 (0.6-0.9) 4 1.2 (1.0-1.5) 5 2.2 (1.9-2.6) 6 3.0 (2.5-3.6) 7 4.8 (3.8-6.1) Discharge Plan Discharge Patient Disposition: PLACED OBSERVATION Discharge Problem: Onychomycosis, Anemia, Pulmonary nodule, Renal cyst, Hepatic cyst, D-dimer, elevated, Tobacco use, Cannot walk, Acute exacerbation of chronic obstructive pulmonary disease Did you review [place] ELEVATOR REPAIRER for ALL controlled substances?: Not Applicable ED Provider: ROGER UP Condition: Good Physician Progress Note: []
[2022-09-18 07:32] LABS: ALANINE AMINOTRANSFERASE 9.9 U/L (0-50); ALBUMIN 4.09 g/dL (3.5-5.0); ALKALINE PHOSPHATASE 116.7 U/L (56-119); ASPARTATE AMINO TRANSFERASE 18.5 U/L (17-59); BILIRUBIN,TOTAL 1.18 mg/dL (0.2-1.3); BLOOD UREA NITROGEN 25.7 mg/dL (9-20); CALCIUM 8.6 mg/dL (8.4-10.2); CARBON DIOXIDE 27.5 mmol/L (22-30.0); CHLORIDE 99.1 mmol/L (98-107); CREATININE 1.28 mg/dL (0.60-1.10); POTASSIUM 3.53 mmol/L (3.5-5.1); SODIUM 133.4 mmol/L (134.5-145); TOTAL PROTEIN 7.03 g/dL (6.3-8.2)
[2022-09-18 07:39] LABS: RSV MOLECULAR NEGATIVE BY NAAT (NEGATIVE)
[2022-09-18 07:44] LABS: TROPONIN I 0.036 ng/ml (0.0000-0.120)
[2022-09-18 07:46] LABS: SARS COV-2 RNA RAPID NAAT NEGATIVE (NEGATIVE)
[2022-09-18 08:07] LABS: MOLECULAR FLU A NEGATIVE BY NAAT (NEGATIVE); MOLECULAR FLU B NEGATIVE BY NAAT (NEGATIVE)
--- NOTE | 2022-09-18 09:49 | CT ---
EXAM: CTA CHEST FOR PE HISTORY: Elevated D-dimer with shortness of breath COMPARISON: None TECHNIQUE: CTA of the chest was performed from the lung apices to the upper abdomen after 100 ml of Visipaque IV contrast was administered using PE protocol. 3-D imaging was also provided. FINDINGS: There is no filling defect in the pulmonary arteries to the level of the subsegmental pulm onary arteries. The heart is normal without signs of ventricular strain. Heart is mildly enlarged w ith changes of prior CABG. There is calcific atherosclerotic disease. There is no lymphadenopathy. There is no pneumothorax or effusion. There is scattered emphysema. There is a 0.2 cm ground-glass nodule in the posterior right upper lobe on image 39. There is mild central and small airways thicke mary noted bilaterally. There is dependent atelectasis in the left lower lobe with significant small airways thickening. Central airways are patent. There is a central nodule with ground-glass in the anterior left upper lobe measuring 0.8 cm on image 33. Limited views of the soft tissues in the upper abdomen demonstrate layering sludge/small stones with renal cysts and hepatic cyst. The osseous structures demonstrate degenerative disease. IMPRESSION: 1. No pulmonary embolism. 2. Heart is mildly enlarged with changes of CABG and significant atherosclerotic disease. 3. Pulmonary nodules and most pronounced in the left upper lobe. Follow-up CT in 6 months is recomm ended. 4. Changes of chronic obstructive pulmonary disease and small airway thickening. 5. Renal cysts and hepatic cyst. There are small layering gallstones. All CT scans are performed using dose optimization techniques as appropriate to the performed exam an d include at least one of the following: Automated exposure control, adjustment of the mA and/or kV according t o size, and the use of iterative reconstruction technique.
--- NOTE | 2022-09-18 09:58 | US ---
EXAM: BILATERAL LOWER EXTREMITY VENOUS DOPPLER DUPLEX HISTORY: Concern for DVT lower extremity swelling. COMPARISON: None TECHNIQUE: Sonographic and Doppler evaluation of the bilateral lower extremity vessels from the comm on femoral through the anterior tibial veins were obtained. Color Doppler and wave spectral evaluati on are normal. Augmentation and compression techniques were also performed. FINDINGS: There is spontaneous Doppler flow seen in the bilateral lower extremity veins from the com mon femoral through the anterior tibial veins. There is normal compression and augmentation througho ut the lower extremity veins. There is normal color Doppler and wave spectral evaluation. Sonograph ic appearance of the soft tissues demonstrate edema. IMPRESSION: No lower extremity thrombus
--- NOTE | 2022-09-18 11:29 | PCM ---
Date of Service Date Seen by Provider: 09/18/22 Time Seen by Provider: 10:45 Admit Day/Time Admission Date: 09/18/22 Admission Time: 10:37 Reason for Admission Chief Complaint: CAN NOT WALK Hospital Provider Hospital Provider: Jaylene Fuentes PA-C, [facility] [place] Primary Care Physician Primary Care Physician: BRANDI BECKER MD History of Present Illness History of Present Illness: Patient is an 87 year old male from home who presents to ER with leg swelling and unable to walk. Patient states on Wednesday he "did too much around the house" and was sore in his legs and back. He's felt weak ever since. However, today he woke up unable to move his left leg which concerned him. He also felt like it was a little more swollen. He states "this feels similar to when I had my stroke years ago." He has residual left sided arm and leg weakness from a stroke 20 years ago, but states today is significantly worse. He also complains of left leg and knee pain. Denies any falls. In ER he was found to be wheezing and has COPD. Was given solumedrol and nebulizer. D dimer elevated. CTA negative for PE or pna. US BLE negative for dvt. Patient is from home and was noted to be disheveled. He lives alone but has a brother and nephew who live next to him. He has meals on wheels. He feels he can care for himself at home and is not interested in half-way placement or home health. He is open to outpatient therapy once a week if it is deemed necessary. Case Discussed With Case Discussed With: Patient's case was discussed with the ER Physicians, Dr. Plummer. 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 - Hypertensive chronic kidney disease with stage 1 through stage 4 chronic kidney disease, or unspecified chronic kidney disease (ICD-10) Peripheral vascular disease I73.9 - Peripheral vascular disease, unspecified (ICD-10) Prostate cancer C61 - Malignant neoplasm of prostate (ICD-10) Stroke I63.9 - Cerebral infarction, unspecified (ICD-10) Surgical History 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) Z95.1 - Presence of aortocoronary bypass graft (ICD-10) Status post hernia repair Z98.890 - Other specified postprocedural states (ICD-10) Family History FATHER Cardiac disease Hypertension Mother Cancer BROTHER Cardiac disease PATERNAL GRANDFATHER CVA (cerebral vascular accident) UNCLE CVA (cerebral vascular accident) Social History Smoking and tobacco status: Current every day smoker Allergies Allergies Allergy/AdvReac Type Severity Reaction Status Date / Time lisinopril AdvReac Severe Swelling Verified 06/15/22 14:17 Current Medications Home Medications acetaminophen 500 mg tablet 500 mg PO QID PRN headache 30 days #60 tab-caps 10/30/20 [History Confirmed 09/18/22 Last Taken Unknown] epinephrine 0.3 mg/0.3 mL injection, auto-injector (EpiPen) 0.3 mg (0.3 mL) IM ONCE #1 ea 05/07/22 [Rx Confirmed 09/18/22 Last Taken Unknown] amlodipine 5 mg tablet 5 mg PO BID 90 days #180 tab-caps 06/15/22 [Rx Confirmed 09/18/22 Last Taken Unknown] clopidogrel 75 mg tablet 75 mg PO DAILY 90 days #90 tab-caps 06/15/22 [Rx Confirmed 09/18/22 Last Taken Unknown] losartan 100 mg tablet 100 mg PO DAILY #90 tabs 06/15/22 [Rx Confirmed 09/18/22 Last Taken Unknown] metoprolol tartrate 50 mg tablet 50 mg PO BID 90 days #180 tab-caps 06/15/22 [Rx Confirmed 09/18/22 Last Taken Unknown] rosuvastatin 10 mg tablet (Crestor) 10 mg PO BEDTIME 90 days #90 tab-caps 06/15/22 [Rx Confirmed 09/18/22 Last Taken Unknown] spironolactone 25 mg tablet 12.5 mg PO QDAY #90 tabs 07/23/22 [Rx Confirmed 09/18/22 Last Taken Unknown] Vascepa 1 gram capsule (icosapent ethyl) 2 g PO BID #120 caps 07/27/22 [Rx Confirmed 09/18/22 Last Taken Unknown] Home Acetaminophen (Acetaminophen 325 Mg Tablet) 650 mg PO Q4H PRN PRN Reason: Mild Pain Amlodipine Besylate (Amlodipine Besylate 5 Mg Tablet) 5 mg PO BID [facility]LEN[facility] Clopidogrel Bisulfate (Clopidogrel Bisulfate 75 Mg Tablet) 75 mg PO DAILY [facility] Enoxaparin Sodium (Enoxaparin Sodium 40 Mg/0.4 Ml Syr) 40 mg SUBCUT DAILY [facility] Losartan Potassium (Losartan Potassium 100 Mg Tablet) 100 mg PO DAILY [facility] Metoprolol Tartrate (Metoprolol Tartrate 50 Mg Tablet) 50 mg PO BID SHIRLENE Ondansetron HCl (Ondansetron Hcl/Pf 4 Mg/2 Ml Sdv) 4 mg IVP Q6H PRN PRN Reason: Nausea / Vomiting Rosuvastatin Calcium (Rosuvastatin Calcium 10 Mg Tablet) 10 mg PO BEDTIME SHIRLEN[facility] Sodium Chloride (0.9% Sodium Chloride 10 Ml Disp.Syrin) 1 syr IVF PRN PRN PRN Reason: To flush IV Last Admin: 09/18/22 07:19 Dose: 1 syr Spironolactone (Spironolactone 25 Mg Tablet) 12.5 mg PO DAILY [facility] Discontinued Medications Albuterol/Ipratropium (Ipratropium/Albuterol Vial.Neb) 3 ml NEB ONCE ONE Stop: 09/18/22 07:02 Last Admin: 09/18/22 08:00 Dose: 3 ml Budesonide (Budesonide 0.25 Mg/2 Ml Vial.Neb) 0.25 mg NEB ONCE ONE Stop: 09/18/22 07:02 Last Admin: 09/18/22 08:00 Dose: 0.25 mg Methylprednisolone Sodium Succinate (Methylprednisolone Sod Succ/Pf 125 Mg/2 Ml Vial) 125 mg IVP ONCE STA Stop: 09/18/22 07:02 Last Admin: 09/18/22 07:18 Dose: 125 mg Review of Systems Constitutional: Reports Fatigue and Weakness Head: Reports Normocephalic and Atraumatic Eyes: Denies Blurred vision or Vision Changes Ears: Denies Pain or Drainage Nose: Denies Post Nasal Drip or Congestion Mouth: Denies Sores or Pain Throat: Denies Sore Throat or Difficulty Swallowing Cardiovascular: Reports Edema (Loly lower ext edema ); Denies Chest pain or Chest Pressure Respiratory: Reports Wheeze (loly); Denies Cough or Shortness of air Gastrointestinal: Denies Nausea, Vomiting, Black Tarry Stools or Abdominal pain Genitourinary: Denies Dysuria, Hematuria, Frequency, Incontinent Bladder or Incontinent Bowel Neurological: Reports Weakness and Other (+left leg weakness and pain ); Denies Headache, Dizziness or Syncope Psychiatric: Denies Depression or Suicidal Physical examination Most Recent Vital Signs: Most Recent Vital Signs Temperature 97.4 F L 09/18/22 06:49 Temperature Source Infrared 09/18/22 06:49 Pulse Rate 72 09/18/22 06:49 Respiratory Rate 25 H 09/18/22 06:49 Blood Pressure 143/72 H 09/18/22 06:49 O2 Sat by Pulse Oximetry 96 09/18/22 06:49 Oxygen Flow Rate 2 09/18/22 07:24 Height 6 ft 09/18/22 06:49 Weight 155 lb 6.814 oz 09/18/22 06:49 Appearance: Positive Well-appearing, Well-nourished, Alert and Oriented x3 and Other (Disheveled. Toenails very long. ) Skin: Positive [place], Warm, Good Color and Other (Lower ext with signs of chronic skin thickening and flaking in setting of venous stasis. ) HEENT: Positive Normocephalic Neck: Positive Supple and Midline Trachea Chest/Lungs: Positive Symmetrical With Equal Breath Sounds and Wheezes (loly wheezing, speaks full sentences ) Heart: Positive RRR GI/: Positive Soft, Nontender and Bowel Sounds Normal Musculoskeletal: Positive Other (Pain with flexion of left hip and knee. No obvious injury noted. Left lower ext appears mildly shortened compared to right. ) Extremities: Positive Edema (2+ nonpitting edema loly in setting of stasis dermatitis. Difficult to assess pulses due to this. No cellulitis or ulcerations noted. ) Neurological: Positive Alert, Oriented and Other (2/5 strength of left lower extremity, 3/5 of right. Has difficulty even raising foot off of bed. ) Psychiatric: Positive Oriented x4, Appropriate Mood and Appropriate Affect Labs This Visit Labs This Visit: Labs This Visit 09/18/22 09/18/22 09/18/22 07:00 07:07 07:09 WBC 6.87 RBC 4.38 L Hgb 13.7 L Hct 40.8 L MCV 93.2 MCH 31.3 H MCHC 33.6 RDW Coeff of Elsa 14.0 Plt Count 141 Immature Gran % (Auto) 0.4 Neut % (Auto) 75.7 H Lymph % (Auto) 10.5 [place] % (Auto) 11.9 H Eos % (Auto) 1.2 Baso % (Auto) 0.3 Neut # (Auto) 5.2 Lymph # (Auto) 0.7 [place] # (Auto) 0.8 Eos # (Auto) 0.1 Baso # (Auto) 0.0 Immature Gran # (Auto) 0.0 Sodium 133.4 L Potassium 3.53 Chloride 99.1 Carbon Dioxide 27.5 Anion Gap 10.33 BUN 25.7 H Creatinine 1.28 H Estimated GFR (MDRD) 53.00 BUN/Creatinine Ratio 20.07 Glucose 113.0 H Lactic Acid 0.89 Calcium 8.60 Total Bilirubin 1.18 AST 18.5 ALT 9.9 Alkaline Phosphatase 116.7 Total Creatine Kinase 31.0 L Troponin I 0.036 Total Protein 7.03 Albumin 4.09 Globulin 2.94 Albumin/Globulin Ratio 1.39 D-Dimer 2212.71 H Influ A Molecular Assay Negative by naat Influ B Molecular Assay Negative by naat RSV Antigen Negative by naat SARS CoV-2 RNA Rapid SHARLA Negative 09/18/22 09:03 WBC RBC Hgb Hct MCV MCH MCHC RDW Coeff of Elsa Plt Count Immature Gran % (Auto) Neut % (Auto) Lymph % (Auto) [place] % (Auto) Eos % (Auto) Baso % (Auto) Neut # (Auto) Lymph # (Auto) [place] # (Auto) Eos # (Auto) Baso # (Auto) Immature Gran # (Auto) Sodium Potassium Chloride Carbon Dioxide Anion Gap BUN Creatinine Estimated GFR (MDRD) BUN/Creatinine Ratio Glucose Lactic Acid Calcium Total Bilirubin AST ALT Alkaline Phosphatase Total Creatine Kinase Troponin I 0.033 Total Protein Albumin Globulin Albumin/Globulin Ratio D-Dimer Influ A Molecular Assay Influ B Molecular Assay RSV Antigen SARS CoV-2 RNA Rapid SHARLA Imaging Imagining: EXAM: CT HEAD WITHOUT CONTRAST HISTORY: Left leg weakness COMPARISON: None TECHNIQUE: Serial axial images of the brain were obtained from the skull base to the vertex without IV contrast. FINDINGS: The ventricles, cisterns and sulci demonstrate moderate generalized volume loss. The pichardo-white matter junction is maintained. There is scattered low attenuation in the periventricular white matter.No midline shift or mass is identified. There is no abnormal intra or extra-axial fluid collection. The paranasal sinuses and mastoid air cells are clear. The osseous calvarium is intact. IMPRESSION: Moderate generalized volume loss and scattered microangiopathy. If further evaluation is clinically indicated, MRI is recommended. EXAM: CTA CHEST FOR PE HISTORY: Elevated D-dimer with shortness of breath COMPARISON: None TECHNIQUE: CTA of the chest was performed from the lung apices to the upper abdomen after 100 ml of Visipaque IV contrast was administered using PE protocol. 3-D imaging was also provided. FINDINGS: There is no filling defect in the pulmonary arteries to the level of the subsegmental pulmonary arteries. The heart is normal without signs of ventricular strain. 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 There is calcific atherosclerotic disease. There is no lymphadenopathy. There is no pneumothorax or effusion. There is scattered emphysema. There is a 0.2 cm ground-glass nodule in the posterior right upper lobe on image 39. There is mild central and small airways thickening noted bilaterally. There is dependent atelectasis in the left lower lobe with significant small airways thickening. Central airways are patent. There is a central nodule with ground- glass in the anterior left upper lobe measuring 0.8 cm on image 33. Limited views of the soft tissues in the upper abdomen demonstrate layering sludge/small stones with renal cysts and hepatic cyst. The osseous structures demonstrate degenerative disease. IMPRESSION: 1. No pulmonary embolism. 2. Heart is mildly enlarged with changes of CABG and significant atherosclerotic disease. 3. Pulmonary nodules and most pronounced in the left upper lobe. Follow-up CT in 6 months is recommended. 4. Changes of chronic obstructive pulmonary disease and small airway thickening. 5. Renal cysts and hepatic cyst. There are small layering gallstones. EXAM: LEFT HIP AND PELVIS RADIOGRAPH (3 VIEW) TECHNIQUE: 3 views. Frontal pelvis. Frontal and lateral left hip. HISTORY: Left hip pain and pelvic pain. COMPARISON: None. FINDINGS: There is no fracture or dislocation. The soft tissues are normal. There is narrowing of the left hip joint space. Subchondral degenerative cystic changes present in left femoral head and left acetabulum. This is consistent with degenerative arthrosis. Vascular calcifications present in the bilateral iliac and bilateral superficial femoral arteries. Contrast is present in the bladder from recent contrast administration. The patient received contrast for CT pulmonary angio. IMPRESSION: 1. Moderate to advanced degenerative arthrosis left hip joint. EXAM: LEFT KNEE TWO-VIEW HISTORY: Left knee pain COMPARISON: None. FINDINGS: AP and lateral views left knee are obtained. There is narrowing of the lateral joint compartment. There is mild subchondral degenerative change in the lateral femoral condyle. The medial patellofemoral joints are normal. Small joint effusion is present. Hypertrophic changes noted quadriceps tendon insertion in the patella and origin of the patellar tendon. Vascular calcifications present in the popliteal artery. IMPRESSION: Degenerative arthrosis lateral joint compartment left knee. 2. Small joint effusion. EXAM: BILATERAL LOWER EXTREMITY VENOUS DOPPLER DUPLEX HISTORY: Concern for DVT lower extremity swelling. COMPARISON: None TECHNIQUE: Sonographic and Doppler evaluation of the bilateral lower extremity vessels from the common femoral through the anterior tibial veins were obtained. Color Doppler and wave spectral evaluation are normal. Augmentation and compression techniques were also performed. FINDINGS: There is spontaneous Doppler flow seen in the bilateral lower extremity veins from the common femoral through the anterior tibial veins. There is normal compression and augmentation throughout the lower extremity veins. There is normal color Doppler and wave spectral evaluation. Sonographic appearance of the soft tissues demonstrate edema. IMPRESSION: No lower extremity thrombus Review Statement Review Statement: I have independently reviewed and interpreted the labs/EKGs/imaging that were ordered by the ER provider. I have reviewed all outside records that are available currently in our EMR including imaging/notes/labs from previous visits. Plan Plan: A&P: 1. Weakness with inability to ambulate - Patient would not bear weight on left leg with therapy. CT lumbar spine and left hip to r/o fracture or cord compression. PT/OT ordered. Tylenol prn for pain. Will consider adding solumedrol following imaging. 2. Hypertension, chronic stable - Continue home meds 3. PAD - Chronic, stable - Continue plavix 4. Hyperlipidemia - Chronic, stable - Continue home meds DVT Prophylaxis: Lovenox Time Spent: Greater than 80 minutes spent with patient, 50% of the time spent with this patient was devoted to counseling and coordination of care. [facility]in minutes spent discussing advance care planning. Patient wishes to be FULL CODE. He later told nursing staff he wants to be CPR but DNI. Smoking Cessation: 3 minutes spent discussing smoking cessation. Admit to: Obs Discussed Plan of Care with Dr. Magalie Clarke. Medications Medication Orders: Medications Ordered Category Date Time Status 0.9 % Sodium Chloride [Saline Flush] MEDS 09/18/22 06:57 Active 1 syr IVF PRN PRN
--- NOTE | 2022-09-18 11:50 | CT ---
EXAM: CT HEAD WITHOUT CONTRAST HISTORY: Left leg weakness COMPARISON: None TECHNIQUE: Serial axial images of the brain were obtained from the skull base to the vertex without IV contrast. FINDINGS: The ventricles, cisterns and sulci demonstrate moderate generalized volume loss. The pichardo -white matter junction is maintained. There is scattered low attenuation in the periventricular whit e matter.No midline shift or mass is identified. There is no abnormal intra or extra-axial fluid col lection. The paranasal sinuses and mastoid air cells are clear. The osseous calvarium is intact. IMPRESSION: Moderate generalized volume loss and scattered microangiopathy. If further evaluation i s clinically indicated, MRI is recommended. All CT scans are performed using dose optimization techniques as appropriate to the performed exam an d include at least one of the following: Automated exposure control, adjustment of the mA and/or kV according t o size, and the use of iterative reconstruction technique.
--- NOTE | 2022-09-18 12:26 | DI ---
EXAM: LEFT HIP AND PELVIS RADIOGRAPH (3 VIEW) TECHNIQUE: 3 views. Frontal pelvis. Frontal and lateral left hip. HISTORY: Left hip pain and pelvic pain. COMPARISON: None. FINDINGS: There is no fracture or dislocation. The soft tissues are normal. There is narrowing of the left hip joint space. Subchondral degenerative cystic changes present in l eft femoral head and left acetabulum. This is consistent with degenerative arthrosis. Vascular calcifications present in the bilateral iliac and bilateral superficial femoral arteries. Contrast is present in the bladder from recent contrast administration. The patient received contras t for CT pulmonary angio. IMPRESSION: 1. Moderate to advanced degenerative arthrosis left hip joint.
--- NOTE | 2022-09-18 12:30 | DI ---
EXAM: LEFT KNEE TWO-VIEW HISTORY: Left knee pain COMPARISON: None. FINDINGS: AP and lateral views left knee are obtained. There is narrowing of the lateral joint comp artment. There is mild subchondral degenerative change in the lateral femoral condyle. The medial p atellofemoral joints are normal. Small joint effusion is present. Hypertrophic changes noted bridger ceps tendon insertion in the patella and origin of the patellar tendon. Vascular calcifications present in the popliteal artery. IMPRESSION: Degenerative arthrosis lateral joint compartment left knee. 2. Small joint effusion.
[2022-09-18] MEDS ORDERED: TYLENOL PO PRN (12:55)
[2022-09-18] MEDS ORDERED: ZOFRAN 4 MG/2 ML IVP PRN (12:55)
[2022-09-18 13:24] VITALS: BMI 21.2
[2022-09-18 14:56] LABS: BILIRUBIN,URINE Negative (NEGATIVE); CLARITY,URINE Clear (CLEAR); COLOR,URINE Yellow (YELLOW); GLUCOSE, URINE (UA) Negative (NEGATIVE); KETONES,URINE Trace (NEGATIVE); LEUKOCYTE ESTERASE ,URINE Negative (NEGATIVE); NITRITE,URINE Negative (NEGATIVE); PH,URINE 5.5 (5-9); PROTEIN,URINE 3+ (NEGATIVE); URINE, BLOOD 1+ (NEGATIVE); UROBILINOGEN,URINE 0.2 (0.2)
--- NOTE | 2022-09-18 16:06 | CT ---
EXAM: CT SCAN OF THE LUMBAR SPINE WITHOUT CONTRAST HISTORY: Weakness of the left leg TECHNIQUE: Imaging of the lumbar spine was performed without contrast. Axial images and coronal and sagittal reconstructions were obtained. FINDINGS: There is curvature of the lumbar spine to the right centered at the L2-L3 level measuring approximately 29 degrees. There is no evidence of acute compression fracture. There is moderate to severe loss of disc height seen at L2-L3. There is multilevel facet arthropathy seen throughout the lumbar spine. The paraspinal soft tissues are normal. Five lumbar-type vertebral bodies are seen. There is fusiform aneurysmal dilatation of the infrarenal abdominal aorta. The findings measure 4.4 cm transverse. The complete AP extent of the abdominal aorta was not seen on this examination. Segmental analysis: T12-L1: The central canal and neural foramina appear patent. L1-L2: There is disc bulge and mild facet arthropathy resulting in mild bilateral foraminal stenosis, left greater than right. The central canal appears adequately patent. L2-L3: There is disc bulge and mild to moderate facet arthropathy resulting in mild to moderate cent ral canal stenosis. The thecal sac is measuring approximately 6.9 mm AP. There is moderate left for aminal stenosis. There is mild narrowing of the right neural foramen. L3-L4: There is disc bulge and mild to moderate facet arthropathy resulting in mild to moderate cent ral canal stenosis. The thecal sac is reduced to 7 mm AP. There is mild to moderate left and mild r ight foraminal stenosis. L4-L5: There is moderate to severe facet arthropathy and disc bulge resulting in mild central canal and lateral recess stenosis. There is mild bilateral foraminal stenosis. L5-S1: The central canal and lateral recesses appear patent. There is mild narrowing of the neural foramina. IMPRESSION: No evidence of acute compression fracture. There is prominent dextroscoliosis of the lumbar spine centered at the L2-L3 level measuring 29 degre es. There is multilevel disc bulge and facet arthropathy resulting in up to mild to moderate central jovita l stenosis as described above most severe at the L2-L3 L3-L4 disc space. Multilevel foraminal stenosis seen within the lumbar spine as described above. There is aneurysmal dilatation of the infrarenal abdominal aorta measuring at least 4.4 cm transverse . The aneurysm is not completely seen on this examination. CT scan of the abdomen and pelvis can be obtained for further evaluation. All CT scans are performed using dose optimization techniques as appropriate to the performed exam an d include at least one of the following: Automated exposure control, adjustment of the mA and/or kV according t o size, and the use of iterative reconstruction technique.
--- NOTE | 2022-09-18 16:21 | CT ---
EXAM: CT OF THE LEFT HIP WITHOUT CONTRAST HISTORY: Pain. COMPARISON: Pelvis and left hip radiographs 09/18/2022. CT of the abdomen and pelvis 12/19/2013. CT lumbar spin e 09/18/2022. TECHNIQUE: Noncontrast CT images of the left hip were obtained. Axial reconstructions with sagittal and coronal reformats were provided. 3-D volume rendered images: Not provided. FINDINGS: Marked degenerative changes of the left hip with most severe joint space narrowing posteriorly and chance periorly with articular surface remodeling prompt marginal osteophytes. Extensive subchondral cystic change/sclerosis throughout the posterosuperior portion of the femoral head. An underlying componen t osteonecrosis is not excluded. Mild depression of the subchondral plate related to degenerative re modeling at that level. Chronic-appearing erosions and correlation for signs of an underlying inflam matory arthritis such as rheumatoid arthritis or crystal deposition disease is recommended. Moderate hip effusion. No evidence of acute osteomyelitis. Calcific tendonitis/enthesopathy. Degenerative spurring at the pubic symphysis and visualized inferior sacroiliac joint. Demineralization. Small s clerotic lesions within the bony pelvis are unchanged likely represent benign bone islands. Vascular calcifications. Sub-centimeter inguinal lymph nodes are not pathologic by size criteria. M oderate prostatic enlargement with prostatic calcifications. Contrast within the urinary bladder. S ubcutaneous edema posterolaterally without deep decubitus ulcer or drainable fluid collection. IMPRESSION: Marked degenerative changes of the left hip. Extensive subchondral cystic change/sclerosis within th e posterosuperior portion the femoral head with possible component osteonecrosis with articular surfa ce remodeling as described. Chronic-appearing erosions at the hip and correlation for signs of an un derlying inflammatory arthritis such as rheumatoid arthritis versus crystal deposition disease is rec ommended. Moderate left hip effusion is nonspecific. Demineralization. Additional chronic / degenerative changes as detailed above. All CT scans are performed using dose optimization techniques as appropriate to the performed exam an d include at least one of the following: Automated exposure control, adjustment of the mA and/or kV according t o size, and the use of iterative reconstruction technique.
[2022-09-18] MEDS ORDERED: CRESTOR PO SCH (21:00)
[2022-09-18] MEDS: LOPRESSOR PO SCH (21:13)
[2022-09-18] MEDS: NORVASC PO SCH (21:13)
[2022-09-19 05:36] LABS: EOSINOPHILS % (AUTO) 0.1 % (0.0-7.0); HEMATOCRIT 36.7 % (42.0-52.0); HEMOGLOBIN 12.7 g/dl (14.0-18.0); IMMATURE GRANULOCYTE % (AUTO) 0.4 % (0.0-5.0); LYMPHOCYTES # (AUTO) 0.5 K/uL (0.60-3.4); LYMPHOCYTES % (AUTO) 6.6 (10.0-50.0); MEAN CORPUSCULAR HEMOGLOBIN 31.8 pg (27.0-31.0); MEAN CORPUSCULAR HGB CONC 34.6 (31.8-35.4); MEAN CORPUSCULAR VOLUME 91.8 fl (80.0-94.0); MONOCYTES # (AUTO) 0.3 K/uL (0.4-2.0); MONOCYTES % (AUTO) 4.5 (0-10); NEUTROPHILS # (AUTO) 6.5 K/ul (2.0-6.9); NEUTROPHILS % (AUTO) 88.4 % (42.2-75.2); PLATELET COUNT 146 10^3/uL (140-440); RDW COEFFICIENT OF VARIATION 13.5 % (11.6-14.8); WHITE BLOOD COUNT 7.38 K/ul (4.2-10.2)
[2022-09-19 05:48] LABS: ALANINE AMINOTRANSFERASE 9.9 U/L (0-50); ALBUMIN 3.46 g/dL (3.5-5.0); ALKALINE PHOSPHATASE 102.3 U/L (56-119); ASPARTATE AMINO TRANSFERASE 16.4 U/L (17-59); BILIRUBIN,TOTAL 0.56 mg/dL (0.2-1.3); BLOOD UREA NITROGEN 25.4 mg/dL (9-20); CALCIUM 8.27 mg/dL (8.4-10.2); CARBON DIOXIDE 25.5 mmol/L (22-30.0); CHLORIDE 101.1 mmol/L (98-107); CREATININE 0.89 mg/dL (0.60-1.10); GLUCOSE 147.9 mg/dL (74-106); POTASSIUM 3.64 mmol/L (3.5-5.1); SODIUM 132.1 mmol/L (134.5-145); TOTAL PROTEIN 6.19 g/dL (6.3-8.2)
[2022-09-19 06:10] VITALS: TEMP 97.5
[2022-09-19] MEDS: NORVASC PO SCH (08:47)
[2022-09-19] MEDS: LOPRESSOR PO SCH (08:47)
[2022-09-19] MEDS ORDERED: COZAAR PO SCH (09:00)
[2022-09-19] MEDS ORDERED: ALDACTONE PO SCH (09:00)
[2022-09-19] MEDS ORDERED: LOVENOX SUBCUT SCH (09:00)
[2022-09-19] MEDS ORDERED: PLAVIX PO SCH (09:00)
--- NOTE | 2022-09-19 09:55 | DCSUM ---
Admission Date Admission Date: 09/18/22 Discharge Date Discharge Date: 09/19/22 Admission Diagnosis Admission Diagnosis: 1. Weakness with inability to ambulate Discharge Diagnosis Discharge Diagnosis: 1. Weakness with inability to ambulate due to left hip pain, improved 2. COPD, chronic, stable 3. CKD, chronic, stable 4. Hypertension, chronic, stable 5. History of prostate cancer 6. AAA, stable, chronic 7. History of CVA, stable chronic Hospital Provider Hospital Provider: JAYLENE FUENTES PA-C, [facility] [place] Primary Care Physician Primary Care Physician: BRANDI BECKER MD Summary of History and Physical Summary of History and Physical: Patient is an 87 year old male from home who presents to ER with leg swelling and unable to walk. Patient states on Wednesday he "did too much around the house" and was sore in his legs and back. He's felt weak ever since. However, today he woke up unable to move his left leg which concerned him. He also felt like it was a little more swollen. He states "this feels similar to when I had my stroke years ago." He has residual left sided arm and leg weakness from a stroke 20 years ago, but states today is significantly worse. He also complains of left leg and knee pain. Denies any falls. In ER he was found to be wheezing and has COPD. Was given solumedrol and nebulizer. D dimer elevated. CTA negative for PE or pna. US BLE negative for dvt. Patient is from home and was noted to be disheveled. He lives alone but has a brother and nephew who live next to him. He has meals on wheels. He feels he can care for himself at home and is not interested in senior living placement or home health. He is open to outpatient therapy once a week if it is deemed necessary. Hospital Course Subjective: Due to patient describing his left leg weakness similar to when he had a stroke in the past, ct head was ordered. It was negative for acute cva. Also imaged his left hip and knee due to stating he has pain. No acute findings, but chronic arthritis. Patient worked with therapy and would not bear weight on his left leg. CT lumbar spine and hip ordered. Full reports below, patient has significant arthritis and some canal stenosis noted. Today, day of discharge, patient states his left leg feels better just moving around in the bed. Nursing staff assisted patient and he was able to get up with his walker and to chair with minimal assistance. He states his pain is much improved and he was able to bear weight. He feels comfortable with discharge home and actually requests to be discharged. He states his brother and nephew can assist him. Encouraged him to follow up with pcp this week. Discussed potential ortho apt but he declines this. Also discussed option of pain medication, he declines this as well. He takes tylenol at home. With it being Wednesday no case management available. Will leave message for them to try to set up outpatient therapy for patient. Appearance: Pleasant, No Apparent Distress and Alert HEENT: MMM CVS: No Murmur and No Rubs Abdomen: Soft, Non-Tender and No Distention Respiratory: No Accessory Muscle Use Extremities: Other (Chronic venous stasis changes of lower ext loly. ) Vital Signs: Most Recent Vital Signs Temperature 97.5 F L 09/19/22 06:00 Temperature Source Oral 09/19/22 06:00 Temperature Source Infrared 09/18/22 06:49 Pulse Rate 67 09/19/22 06:00 Respiratory Rate 18 09/19/22 08:00 Blood Pressure 137/73 09/19/22 06:00 Blood Pressure Mean 94 09/19/22 06:00 Blood Pressure Right Arm 131/65 09/18/22 12:54 Blood Pressure Location Left Arm 09/19/22 06:00 Blood Pressure Position Supine 09/18/22 22:00 O2 Sat by Pulse Oximetry 2 L 09/19/22 06:00 Oxygen Delivery Method Nasal Cannula 09/19/22 08:00 Oxygen Flow Rate 2 09/19/22 08:00 Height 6 ft 09/18/22 12:54 Weight 156 lb 3.2 oz 09/18/22 12:54 Telemetry Type Remote Telemetry 09/19/22 07:00 Telemetry Monitoring Continues 09/19/22 07:00 Telemetry Heart Rate 50 L 09/19/22 07:00 EKG MA Interval 0.30 H 09/19/22 07:00 EKG QRS Interval 0.10 09/19/22 07:00 Telemetry Strip Reading SB WITH 1ST DEGREE AVB 09/19/22 07:00 Imaging: EXAM: CT HEAD WITHOUT CONTRAST HISTORY: Left leg weakness COMPARISON: None TECHNIQUE: Serial axial images of the brain were obtained from the skull base to the vertex without IV contrast. FINDINGS: The ventricles, cisterns and sulci demonstrate moderate generalized volume loss. The pichardo-white matter junction is maintained. There is scattered low attenuation in the periventricular white matter.No midline shift or mass is identified. There is no abnormal intra or extra-axial fluid collection. The paranasal sinuses and mastoid air cells are clear. The osseous calvarium is intact. IMPRESSION: Moderate generalized volume loss and scattered microangiopathy. If further evaluation is clinically indicated, MRI is recommended. EXAM: CTA CHEST FOR PE HISTORY: Elevated D-dimer with shortness of breath COMPARISON: None TECHNIQUE: CTA of the chest was performed from the lung apices to the upper abdomen after 100 ml of Visipaque IV contrast was administered using PE protocol. 3-D imaging was also provided. FINDINGS: There is no filling defect in the pulmonary arteries to the level of the subsegmental pulmonary arteries. The heart is normal without signs of ventricular strain. 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 There is calcific atherosclerotic disease. There is no lymphadenopathy. There is no pneumothorax or effusion. There is scattered emphysema. There is a 0.2 cm ground-glass nodule in the posterior right upper lobe on image 39. There is mild central and small airways thickening noted bilaterally. There is dependent atelectasis in the left lower lobe with significant small airways thickening. Central airways are patent. There is a central nodule with ground- glass in the anterior left upper lobe measuring 0.8 cm on image 33. Limited views of the soft tissues in the upper abdomen demonstrate layering sludge/small stones with renal cysts and hepatic cyst. The osseous structures demonstrate degenerative disease. IMPRESSION: 1. No pulmonary embolism. 2. Heart is mildly enlarged with changes of CABG and significant atherosclerotic disease. 3. Pulmonary nodules and most pronounced in the left upper lobe. Follow-up CT in 6 months is recommended. 4. Changes of chronic obstructive pulmonary disease and small airway thickening. 5. Renal cysts and hepatic cyst. There are small layering gallstones. EXAM: LEFT HIP AND PELVIS RADIOGRAPH (3 VIEW) TECHNIQUE: 3 views. Frontal pelvis. Frontal and lateral left hip. HISTORY: Left hip pain and pelvic pain. COMPARISON: None. FINDINGS: There is no fracture or dislocation. The soft tissues are normal. There is narrowing of the left hip joint space. Subchondral degenerative cystic changes present in left femoral head and left acetabulum. This is consistent with degenerative arthrosis. Vascular calcifications present in the bilateral iliac and bilateral superficial femoral arteries. Contrast is present in the bladder from recent contrast administration. The patient received contrast for CT pulmonary angio. IMPRESSION: 1. Moderate to advanced degenerative arthrosis left hip joint. EXAM: LEFT KNEE TWO-VIEW HISTORY: Left knee pain COMPARISON: None. FINDINGS: AP and lateral views left knee are obtained. There is narrowing of the lateral joint compartment. There is mild subchondral degenerative change in the lateral femoral condyle. The medial patellofemoral joints are normal. Small joint effusion is present. Hypertrophic changes noted quadriceps tendon insertion in the patella and origin of the patellar tendon. Vascular calcifications present in the popliteal artery. IMPRESSION: Degenerative arthrosis lateral joint compartment left knee. 2. Small joint effusion. EXAM: BILATERAL LOWER EXTREMITY VENOUS DOPPLER DUPLEX HISTORY: Concern for DVT lower extremity swelling. COMPARISON: None TECHNIQUE: Sonographic and Doppler evaluation of the bilateral lower extremity vessels from the common femoral through the anterior tibial veins were obtained. Color Doppler and wave spectral evaluation are normal. Augmentation and compression techniques were also performed. FINDINGS: There is spontaneous Doppler flow seen in the bilateral lower extremity veins from the common femoral through the anterior tibial veins. There is normal compression and augmentation throughout the lower extremity veins. There is normal color Doppler and wave spectral evaluation. Sonographic appearance of the soft tissues demonstrate edema. IMPRESSION: No lower extremity thrombus EXAM: CT OF THE LEFT HIP WITHOUT CONTRAST HISTORY:Pain. COMPARISON: Pelvis and left hip radiographs 09/18/2022. CT of the abdomen and pelvis 12/19/2013. CT lumbar spine 09/18/2022. TECHNIQUE: Noncontrast CT images of the left hip were obtained. Axial reconstructions with sagittal and coronal reformats were provided. 3-D volume rendered images: Not provided. FINDINGS: Marked degenerative changes of the left hip with most severe joint space narrowing posteriorly and superiorly with articular surface remodeling prompt marginal osteophytes. Extensive subchondral cystic change/sclerosis throughout the posterosuperior portion of the femoral head. An underlying component osteonecrosis is not excluded. Mild depression of the subchondral plate related to degenerative remodeling at that level. Chronic-appearing erosions and correlation for signs of an underlying inflammatory arthritis such as rheumatoid arthritis or crystal deposition disease is recommended. Moderate hip effusion. No evidence of acute osteomyelitis. Calcific tendonitis/enthesopathy. Degenerative spurring at the pubic symphysis and visualized inferior sacroiliac joint. Demineralization. Small sclerotic lesions within the bony pelvis are unchanged likely represent benign bone islands. Vascular calcifications. Sub-centimeter inguinal lymph nodes are not pathologic by size criteria. Moderate prostatic enlargement with prostatic calcifications. Contrast within the urinary bladder. Subcutaneous edema posterolaterally without deep decubitus ulcer or drainable fluid collection. IMPRESSION: Marked degenerative changes of the left hip. Extensive subchondral cystic change/sclerosis within the posterosuperior portion the femoral head with possible component osteonecrosis with articular surface remodeling as described. Chronic-appearing erosions at the hip and correlation for signs of an underlying inflammatory arthritis such as rheumatoid arthritis versus crystal deposition disease is recommended. Moderate left hip effusion is nonspecific. Demineralization. Additional chronic / degenerative changes as detailed above. EXAM: CT SCAN OF THE LUMBAR SPINE WITHOUT CONTRAST HISTORY: Weakness of the left leg TECHNIQUE: Imaging of the lumbar spine was performed without contrast. Axial images and coronal and sagittal reconstructions were obtained. FINDINGS: There is curvature of the lumbar spine to the right centered at the L2-L3 level measuring approximately 29 degrees. There is no evidence of acute compression fracture. There is moderate to severe loss of disc height seen at L2-L3. There is multilevel facet arthropathy seen throughout the lumbar spine. The paraspinal soft tissues are normal. Five lumbar-type vertebral bodies are seen. There is fusiform aneurysmal dilatation of the infrarenal abdominal aorta. The findings measure 4.4 cm transverse. The complete AP extent of the abdominal aorta was not seen on this examination. Segmental analysis: T12-L1: The central canal and neural foramina appear patent. L1-L2: There is disc bulge and mild facet arthropathy resulting in mild bilateral foraminal stenosis, left greater than right. The central canal appears adequately patent. L2-L3: There is disc bulge and mild to moderate facet arthropathy resulting in mild to moderate central canal stenosis. The thecal sac is measuring approximately 6.9 mm AP. There is moderate left foraminal stenosis. There is mild narrowing of the right neural foramen. L3-L4: There is disc bulge and mild to moderate facet arthropathy resulting in mild to moderate central canal stenosis. The thecal sac is reduced to 7 mm AP. There is mild to moderate left and mild right foraminal stenosis. L4-L5: There is moderate to severe facet arthropathy and disc bulge resulting in mild central canal and lateral recess stenosis. There is mild bilateral foraminal stenosis. L5-S1: The central canal and lateral recesses appear patent. There is mild narrowing of the neural foramina. IMPRESSION: No evidence of acute compression fracture. There is prominent dextroscoliosis of the lumbar spine centered at the L2-L3 level measuring 29 degrees. There is multilevel disc bulge and facet arthropathy resulting in up to mild to moderate central canal stenosis as described above most severe at the L2-L3 L3- L4 disc space. Multilevel foraminal stenosis seen within the lumbar spine as described above. There is aneurysmal dilatation of the infrarenal abdominal aorta measuring at least 4.4 cm transverse. The aneurysm is not completely seen on this examination. CT scan of the abdomen and pelvis can be obtained for further evaluation. Lab Results Last 24 Hours: 09/19/22 09/18/22 04:40 14:45 WBC 7.38 RBC 4.00 L Hgb 12.7 L Hct 36.7 L MCV 91.8 MCH 31.8 H MCHC 34.6 RDW Coeff of Elsa 13.5 Plt Count 146 Immature Gran % (Auto) 0.4 Neut % (Auto) 88.4 H Lymph % (Auto) 6.6 L [place] % (Auto) 4.5 Eos % (Auto) 0.1 Baso % (Auto) 0.0 Neut # (Auto) 6.5 Lymph # (Auto) 0.5 L [place] # (Auto) 0.3 L Eos # (Auto) 0.0 Baso # (Auto) 0.0 Immature Gran # (Auto) 0.0 Sodium 132.1 L Potassium 3.64 Chloride 101.1 Carbon Dioxide 25.5 Anion Gap 9.14 BUN 25.4 H Creatinine 0.89 Estimated GFR (MDRD) 81.00 BUN/Creatinine Ratio 28.53 Glucose 147.9 H Calcium 8.27 L Total Bilirubin 0.56 AST 16.4 L ALT 9.9 Alkaline Phosphatase 102.3 Total Protein 6.19 L Albumin 3.46 L Globulin 2.73 Albumin/Globulin Ratio 1.26 Urine Color Yellow Urine Clarity Clear Urine pH 5.5 Ur Specific [place] 1.015 Urine Protein 3+ H Urine Glucose (UA) Negative Urine Ketones Trace H Urine Blood 1+ H Urine Nitrite Negative Urine Bilirubin Negative Urine Urobilinogen 0.2 Ur Leukocyte Esterase Negative Urine Microscopic RBC 2-5 Urine Microscopic WBC 2-5 Ur Squamous Epith Cells 2-5 Discharge Instructions Discharge Planning: DISCHARGE TO HOME DX: INABILITY TO WALK, WEAKNESS F/U WITH DR. BECKER WITHIN 1 WEEK ACTIVITY: TOLERATED, FALL PRECAUTIONS CONSIDER OUTPATIENT ORTHO REFERRAL TYLENOL NEEDED FOR PAIN DIET: HEART HEALTHY Discharge Planning > 70 minutes Discussed plan of care with Dr. Mango Clarke. Medications Given This Visit: Medications Generic Name Dose Route Start Last Admin Trade Name Freq PRN Reason Stop Dose Admin Acetaminophen 650 mg 09/18/22 12:55 Acetaminophen 325 Mg Tablet PO Q4H PRN Mild Pain Amlodipine Besylate 5 mg 09/18/22 21:00 09/19/22 08:47 Amlodipine Besylate 5 Mg Tablet PO 5 mg BID SHIRLENE Administration Clopidogrel Bisulfate 75 mg 09/19/22 09:00 09/19/22 08:46 Clopidogrel Bisulfate 75 Mg Tablet PO 75 mg DAILY SHIRLENE Administration Enoxaparin Sodium 40 mg 09/19/22 09:00 09/19/22 08:47 Enoxaparin Sodium 40 Mg/0.4 Ml Syr SUBCUT 40 mg DAILY SHIRLENE Administration Losartan Potassium 100 mg 09/19/22 09:00 09/19/22 08:47 Losartan Potassium 100 Mg Tablet PO 100 mg DAILY SHIRLENE Administration Metoprolol Tartrate 50 mg 09/18/22 21:00 09/19/22 08:47 Metoprolol Tartrate 50 Mg Tablet PO 50 mg BID SHIRLENE Administration Ondansetron HCl 4 mg 09/18/22 12:55 Ondansetron Hcl/Pf 4 Mg/2 Ml Sdv IVP Q6H PRN Nausea / Vomiting Rosuvastatin Calcium 10 mg 09/18/22 21:00 09/18/22 21:13 Rosuvastatin Calcium 10 Mg Tablet PO 10 mg BEDTIME SHIRLENE Administration Sodium Chloride 1 syr 09/18/22 06:57 09/19/22 05:55 0.9% Sodium Chloride 10 Ml Disp.Syrin IVF 1 syr PRN PRN Administration To flush IV Spironolactone 12.5 mg 09/19/22 09:00 09/19/22 08:46 Spironolactone 25 Mg Tablet PO 12.5 mg DAILY SHIRLENE Administration Medications Given This Visit: Medications at Discharge (Home Meds & RX) acetaminophen 500 mg tablet 500 mg PO QID PRN headache 30 days #60 tab-caps 10/30/20 epinephrine 0.3 mg/0.3 mL injection, auto-injector (EpiPen) 0.3 mg (0.3 mL) IM ONCE #1 ea 05/07/22 amlodipine 5 mg tablet 5 mg PO BID 90 days #180 tab-caps 06/15/22 clopidogrel 75 mg tablet 75 mg PO DAILY 90 days #90 tab-caps 06/15/22 losartan 100 mg tablet 100 mg PO DAILY #90 tabs 06/15/22 metoprolol tartrate 50 mg tablet 50 mg PO BID 90 days #180 tab-caps 06/15/22 rosuvastatin 10 mg tablet (Crestor) 10 mg PO BEDTIME 90 days #90 tab-caps 06/15/22 spironolactone 25 mg tablet 12.5 mg PO QDAY #90 tabs 07/23/22 Vascepa 1 gram capsule (icosapent ethyl) 2 g PO BID #120 caps 07/27/22 Discharge Plan Discharge Discharge Orders: Discharge Patient (ONCE); Ordered 09/19/22 Ordered By: JAYLENE FUENTES Activity Restrictions/Additional Instructions: DISCHARGE TO HOME DX: INABILITY TO WALK, WEAKNESS F/U WITH DR. BECKER WITHIN 1 WEEK ACTIVITY: TOLERATED, FALL PRECAUTIONS CONSIDER OUTPATIENT ORTHO REFERRAL TYLENOL NEEDED FOR PAIN DIET: HEART HEALTHY Instructions: Weakness (ED), Weakness (GEN) Patient Disposition: HOME SELF-CARE Prescriptions: Continued acetaminophen 500 mg tablet 500 mg PO QID PRN (Reason: headache) 30 Days Qty: 60 epinephrine [EpiPen] 0.3 mg/0.3 mL auto-injector 0.3 mg IM ONCE Qty: 1 1RF Rx Instructions: as a single dose spironolactone 25 mg tablet 12.5 mg PO QDAY Qty: 90 1RF icosapent ethyl [Vascepa] 1 gram capsule 2 g PO BID Qty: 120 1RF Rx Instructions: name brand only. amlodipine 5 mg tablet 5 mg PO BID 90 Days Qty: 180 5RF clopidogrel 75 mg tablet 75 mg PO DAILY 90 Days Qty: 90 1RF losartan 100 mg tablet 100 mg PO DAILY Qty: 90 2RF Rx Instructions: REPLACES LISINOPRIL metoprolol tartrate 50 mg tablet 50 mg PO BID 90 Days Qty: 180 5RF rosuvastatin [Crestor] 10 mg tablet 10 mg PO BEDTIME 90 Days Qty: 90 1RF Did you review [place] [employer] for ALL controlled substances?: Not Applicable Discussed opioids are addictive and Narcan is available by prescription or from pharmacy.: No Condition: Good
[2022-09-19 10:01] VITALS: BP 122/53; RESP 20
== END 2022-09-19 10:58 | disposition home or self-care (01) ==
LOC: MEDSURG B 06:48 → ED 06:48 → MEDSURG B 12:42
PROVIDERS: ADMIT Hospitalist; ATTEND Physician Assistant
DX: Z79.02 Long term (current) use of antithrombotics/antiplatelets; I73.9 Peripheral vascular disease, unspecified; R26.2 Difficulty in walking, not elsewhere classified; J44.1 Chronic obstructive pulmonary disease with (acute) exacerbation; F17.210 Nicotine dependence, cigarettes, uncomplicated; D64.9 Anemia, unspecified; B35.1 Tinea unguium; N28.1 Cyst of kidney, acquired; R91.1 Solitary pulmonary nodule; N18.9 Chronic kidney disease, unspecified; Q44.6 Cystic disease of liver; I10 Essential (primary) hypertension; M25.552 Pain in left hip; R22.42 Localized swelling, mass and lump, left lower limb; R06.02 Shortness of breath; Z79.899 Other long term (current) drug therapy; R79.1 Abnormal coagulation profile; Z85.46 Personal history of malignant neoplasm of prostate; I71.40 Abdominal aortic aneurysm, without rupture, unspecified; Z20.822 Contact with and (suspected) exposure to COVID-19

== ENCOUNTER 2023-05-18 16:24 | Inpatient (IN) ==
[2023-05-18] MEDS ORDERED: ACETAMINOPHEN 1,000 MG/100 ML BAG IV ONE (16:30)
--- NOTE | 2023-05-18 16:49 | ED.PDOC ---
General ED Provider: Dr. ROGER UP DO Chief Complaint: Weakness Stated Complaint: Patient is a 88 yo M here for weakness body aches and sob, covid positive 2 days ago Patient is arrives afebrile and vitally stable by EMS, no interventions en route EMS reports spo2 95% Patient has spo2 93% He was seen 2 days ago and discharged on paxlovid at 96% spo2, but many previous visits and discharges spo2 88-93% on room air. He is a life long smoker He does not use home oxygen He has been taking paxlovid x 2 days No falls or injuries No chest pain No hemoptysis I asked patient to describe his symptoms: "My trailer is cold, the TV doesn't work and I am not comfortable at home by myself." he later elaborates that body aches are most uncomfortable Time Seen by Provider: 05/18/23 16:28 Information Source: Patient Primary Care Provider: BRANDI BECKER MD Nursing and Triage Documentation Reviewed and Agree: Yes What is Opioid Naive?: *Opioid Naive implies the patient is not already taking opioids or not chronically receiving opioids on a daily basis. *PRN dosing is not "usually" associated with tolerance. *Patients are at higher risk of over-sedation and aspiration. What is Opioid Tolerant?: *Opioid Tolerance implies less than the expected response to an opioid. *Acquired tolerance is defined by the patient taking 60mg of oral morphine daily (or equianalgesic dose of another opioid) for 1 week or more. *Often associated with chronic pain. *May take more than usual dose to achieve desired pain control. Review of Systems Review Of Systems Constitutional: Reports Chills and Loss of appetite; Denies Fever Eyes: Denies Blindness or Blurred vision Ears, Nose, Mouth, Throat: Denies Ear pain, Ear discharge or Nose pain Respiratory: Reports Cough and Shortness of Breath; Denies Wheezing Cardiac: Denies Chest pain, Palpitations or Syncope GI: Denies Abdominal pain, Constipated or Diarrhea : Denies Burning or Discharge Musculoskeletal: Reports Muscle pain; Denies Back pain or Joint pain Skin: Denies Bruising or Rash Neurological: Denies Anxiety or Depressed Endocrine: Denies Excessive sweating or Flushing Hematologic/Lymphatic: Denies Anemia or Easy bleeding All Other Systems: Reviewed and Negative [facility] Medical History D-dimer, elevated R79.89 - Other specified abnormal findings of blood chemistry (ICD-10) Stroke I63.9 - Cerebral infarction, unspecified (ICD-10) 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 - Hypertensive chronic kidney disease with stage 1 through stage 4 chronic kidney disease, or unspecified chronic kidney disease (ICD-10) Cerebrovascular accident I63.9 - Cerebral infarction, unspecified (ICD-10) Peripheral vascular disease I73.9 - Peripheral vascular disease, unspecified (ICD-10) Hyperlipidemia E78.5 - Hyperlipidemia, unspecified (ICD-10) Arthritis M19.90 - Unspecified osteoarthritis, unspecified site (ICD-10) AAA (abdominal aortic aneurysm) I71.4 - Abdominal aortic aneurysm, without rupture (ICD-10) Gout (09/24/16) M10.9 - Gout, unspecified (ICD-10) Prostate cancer C61 - Malignant neoplasm of prostate (ICD-10) Insomnia G47.00 - Insomnia, unspecified (ICD-10) Chronic arthritis M19.90 - Unspecified osteoarthritis, unspecified site (ICD-10) Family History FATHER Cardiac disease Hypertension Mother Cancer BROTHER Cardiac disease PATERNAL GRANDFATHER CVA (cerebral vascular accident) UNCLE CVA (cerebral vascular accident) Social History Smoking and tobacco status: Current every day smoker Surgical History Status post hernia repair Z98.890 - Other specified postprocedural states (ICD-10) 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) Z95.1 - Presence of aortocoronary bypass graft (ICD-10) Physical Exam Physical Exam Appearance: Reports Well-appearing, Well-nourished and Other (disheveled with dirty clothes) Ill-appearing: Not Applicable Pain Distress: Not Applicable Eyes: Reports DEDE and EOMI ENT: Reports Ears normal, Nose normal, Oropharynx normal and Other (uvula midline) Neck: Supple Respiratory: Reports Airway patent and Breath sounds clear; Denies Crackles, Rhonchi or Retractions Cardiovascular: Reports RRR and Pulses normal GI/: Reports Soft and Nontender Musculoskeletal: Reports Normal strength Skin: Reports Warm and Dry Neurological: Reports Sensation intact and Motor intact Psychiatric: Reports Affect appropriate and Mood appropriate Interpretation EKG Interpretation EKG Interpretation By: ED Physician Time of EKG #1: 17:02 Interpretation: NSR rate 72, no stemi, artifact from movement present no stemi, 1st degree Course Course 05/18/23 16:51 05/18/23 16:51 Orders, Labs, Meds: Lab Review 05/18/23 05/18/23 16:50 16:51 WBC 3.53 L RBC 4.58 L Hgb 13.3 L Hct 39.7 L MCV 86.7 MCH 29.0 MCHC 33.5 RDW Coeff of Elsa 14.5 Plt Count 105 L Immature Gran % (Auto) 0.3 Neut % (Auto) 78.5 H Lymph % (Auto) 13.3 [place] % (Auto) 7.6 Eos % (Auto) 0.0 Baso % (Auto) 0.3 Neut # (Auto) 2.8 Lymph # (Auto) 0.5 L [place] # (Auto) 0.3 L Eos # (Auto) 0.0 Baso # (Auto) 0.0 Immature Gran # (Auto) 0.0 Puncture Site [employer] Excess -3.1 L O2 Saturation 88.4 L ABG pH 7.44 ABG pCO2 31.0 L ABG pO2 53.0 L* ABG HCO3 21.1 ABG Total CO2 22.1 Evangelist Test Pos Hemoglobin 0.8 Oxyhemoglobin 86.2 L Carboxyhemoglobin 0.9 Total Hemoglobin 12.7 FiO2 % 21.0 Sodium 135.4 Potassium 3.67 Chloride 100.1 Carbon Dioxide 18.3 L Anion Gap 20.67 BUN 28.1 H Creatinine 0.94 Estimated GFR (MDRD) 76.00 BUN/Creatinine Ratio 29.89 Glucose 102.5 Lactic Acid 1.47 Calcium 8.76 Total Bilirubin 0.77 AST 44.4 ALT 21.8 Alkaline Phosphatase 109.0 Troponin I 0.038 Total Protein 7.48 Albumin 4.36 Globulin 3.12 Albumin/Globulin Ratio 1.39 Procalcitonin < 0.05 Orders Category Date Time Status ABG DRAW REQUEST Stat CARDIO 05/18/23 16:36 Completed EKG-(ED ONLY) Stat CARDIO 05/18/23 16:30 Completed NPO REMINDER: IMAGING ONCE CARE 05/18/23 16:30 Completed ABG COOX Stat LAB 05/18/23 16:50 Completed CBC W/ AUTO DIFF Stat LAB 05/18/23 16:51 Completed COMPREHENSIVE METABOLIC PANEL Stat LAB 05/18/23 16:51 Completed LACTIC ACID Stat LAB 05/18/23 16:51 Completed PROCALCITONIN Stat LAB 05/18/23 16:51 Completed TROPONIN I Stat LAB 05/18/23 16:51 Completed Acetaminophen Meds 05/18/23 16:30 Discontinued 1,000 mg in [address] CHEST PE PROTOCOL Stat RADS 05/18/23 16:30 Completed Medications Generic Name Dose Route Start Last Admin Trade Name Freq PRN Reason Stop Dose Admin Acetaminophen 650 mg 05/18/23 19:16 Acetaminophen 325 Mg Tablet PO Q4H PRN Mild Pain Albuterol Sulfate 2.5 mg 05/18/23 19:16 Albuterol Sulfate 0.083% Vial.Neb NEB RTQ4H PRN Wheezing Albuterol/Ipratropium 3 ml 05/18/23 22:00 05/18/23 21:04 Ipratropium/Albuterol Vial.Neb NEB 3 ml RTQ4H SHIRLENE Administration Amlodipine Besylate 5 mg 05/18/23 21:00 05/18/23 21:49 Amlodipine Besylate 5 Mg Tablet PO 5 mg BID SHIRLENE Administration Clopidogrel Bisulfate 75 mg 05/19/23 09:00 Clopidogrel Bisulfate 75 Mg Tablet PO DAILY SHIRLENE Cyclobenzaprine HCl 10 mg 05/18/23 20:12 05/18/23 20:22 Cyclobenzaprine Hcl 10 Mg Tablet PO 10 mg BID PRN Administration Spasms Dexamethasone Sodium Phosphate 6 mg 05/18/23 19:30 05/18/23 20:31 Dexamethasone Sod Phos 10 Mg/Ml Inj IVP Not Given [facility] Lactated Ringer's 1,000 mls @ 100 mls/hr 05/18/23 19:30 05/18/23 20:31 Lactated Ringers IV 100 mls/hr .Q10H SHIRLENE Administration Remdesivir 100 mg/ Sodium 100 mls @ 200 mls/hr 05/19/23 20:00 Chloride IV 05/22/23 20:29 Q24H SHIRLENE Losartan Potassium 100 mg 05/19/23 09:00 Losartan Potassium 100 Mg Tablet PO DAILY SHIRLENE Metoprolol Tartrate 50 mg 05/18/23 21:00 05/18/23 21:49 Metoprolol Tartrate 50 Mg Tablet PO 50 mg BID SHIRLENE Administration Rosuvastatin Calcium 10 mg 05/18/23 21:00 05/18/23 21:49 Rosuvastatin Calcium 10 Mg Tablet PO 10 mg BEDTIME SHIRLENE Administration Spironolactone 12.5 mg 05/19/23 09:00 Spironolactone 25 Mg Tablet PO DAILY SHIRLENE Discontinued Medications Generic Name Dose Route Start Last Admin Trade Name Arleth PRN Reason Stop Dose Admin Acetaminophen 1,000 mg in 100 mls @ 400 mls/hr 05/18/23 16:30 05/18/23 16:55 Acetaminophen IV 05/18/23 16:44 400 mls/hr ONCE ONE Administration Remdesivir 200 mg/ Sodium 250 mls @ 250 mls/hr 05/18/23 19:16 05/18/23 21:40 Chloride IV 05/18/23 20:15 250 mls/hr ONCE ONE Administration Lorazepam 1 mg 05/18/23 21:35 05/18/23 21:57 Lorazepam 1 Mg Tablet PO 05/18/23 21:36 1 mg ONCE ONE Administration Vital Signs: Temp Pulse Resp BP Pulse Ox O2 Del Method O2 Flow Rate 05/18/23 17:13 92 L Nasal Cannula 2 05/18/23 16:29 97.8 F 80 17 159/91 H 93 L ABG shows hypoxia MDM: Patient is a 88 yo M here for covid 19 symptoms and sob Patient afebrile and vitally stable hx from patient chart review by me Exam concerning for respiratory infection 3+ labs and 2 images reviewed by me WDX: Covid 19, acute hypoxemic respiratory failure, tobacco use, myalgia acute high complexity DDX: I considered stemi, PE, pneumothorax but these are less likely SDOH: Patient will improve with inpatient stay and smoking cessation Patient amenable to plan spo2 88% up to 93-95% on 2 L NC Abg shows hypoxia Po2 53% I consulted Hospitalist for admission appreciate their support Patient failed paxlovid after 2 days Discharge Plan Discharge Patient Disposition: PLACED OBSERVATION Discharge Problem: COVID-19, Weakness, Hypoxia, Myalgia Did you review [place] SPEECH THERAPIST TECHNICIAN for ALL controlled substances?: Not Applicable ED Provider: ROGER UP Condition: Good Physician Progress Note: []
[2023-05-18 16:58] LABS: BASOPHILS % (AUTO) 0.3 % (0.0-3.0); HEMATOCRIT 39.7 % (42.0-52.0); HEMOGLOBIN 13.3 g/dl (14.0-18.0); IMMATURE GRANULOCYTE % (AUTO) 0.3 % (0.0-5.0); LYMPHOCYTES # (AUTO) 0.5 K/uL (0.60-3.4); LYMPHOCYTES % (AUTO) 13.3 (10.0-50.0); MEAN CORPUSCULAR HGB CONC 33.5 (31.8-35.4); MEAN CORPUSCULAR VOLUME 86.7 fl (80.0-94.0); MONOCYTES # (AUTO) 0.3 K/uL (0.4-2.0); MONOCYTES % (AUTO) 7.6 (0-10); NEUTROPHILS # (AUTO) 2.8 K/ul (2.0-6.9); NEUTROPHILS % (AUTO) 78.5 % (42.2-75.2); PLATELET COUNT 105 10^3/uL (140-440); RDW COEFFICIENT OF VARIATION 14.5 % (11.6-14.8); RED BLOOD COUNT 4.58 10^6/ul (4.70-6.10); WHITE BLOOD COUNT 3.53 K/ul (4.2-10.2)
[2023-05-18 16:58] LABS: ABG O2 HGB 86.2 % (95-100); ABG PH 7.44 (7.35-7.45); BEecf -3.1 (-2.0-3.0); COHb 0.9 (0.5-1.5); HCO3 21.1 (21-28); MetHb 0.8 (0-1.5); TCO2 22.1 (19-24); sO2 88.4 % (94-98); tHb 12.7 g/dl (11.7-17.4)
[2023-05-18 17:12] LABS: ALANINE AMINOTRANSFERASE 21.8 U/L (0-50); ALBUMIN 4.36 g/dL (3.5-5.0); ASPARTATE AMINO TRANSFERASE 44.4 U/L (17-59); BILIRUBIN,TOTAL 0.77 mg/dL (0.2-1.3); BLOOD UREA NITROGEN 28.1 mg/dL (9-20); CALCIUM 8.76 mg/dL (8.4-10.2); CARBON DIOXIDE 18.3 mmol/L (22-30.0); CHLORIDE 100.1 mmol/L (98-107); CREATININE 0.94 mg/dL (0.60-1.10); GLUCOSE 102.5 mg/dL (74-106); POTASSIUM 3.67 mmol/L (3.5-5.1); SODIUM 135.4 mmol/L (134.5-145); TOTAL PROTEIN 7.48 g/dL (6.3-8.2)
[2023-05-18 17:23] LABS: TROPONIN I 0.038 ng/ml (0.0000-0.120)
--- NOTE | 2023-05-18 18:48 | CT ---
EXAM: CTA CHEST WITH CONTRAST HISTORY: COVID-19, smoker and shortness of breath COMPARISON: CTA chest from 02/04/2023 TECHNIQUE: Multi-slice transaxial helical images are acquired through the chest according to an [facility] protocol. 3-D volume images are provided. All CT scans are performed using dose optimization techniques as appropriate to the performed exam and includes at least one of the following: Automate d exposure control, adjustment of the mA and/or kV according to size, and the use of iterative recons truction technique. CONTRAST: 125 mL Omnipaque-350 IV FINDINGS: The pulmonary ateries are free of intraluminal filling defects. The ascending aorta is ec tatic to 32.2 mm. The descending aorta is ectatic to 34.0 mm. The heart is mildly enlarged. Post C ABG changes are noted. No pericardial or pleural effusions. No aortic dissection. No suspicious lym phadenopathy. There is a stable solid spiculated nodule in the left upper lobe measuring up to 0.9 c m on series 15 image number 32. The lungs are emphysematous. Minimal bilateral apical pleural paren chymal scarring is noted. There is a stable solid nodule in the right upper lobe measuring 0.3 cm on image number 43. There is a stable solid nodule in the left lower lobe measuring 0.3 cm on series 1 5 image number 101. Additional micro nodules are unchanged. No new nodules or acute infiltrates. M inimal dependent atelectasis. There is a small simple cyst in hepatic segment six. Simple acquired renal cysts are noted bilateral ly. The solid organs otherwise normal visualized portions of the upper abdomen. Calculi are noted i n the gallbladder lumen. A fusiform infrarenal abdominal aortic aneurysm is 50.1 x 50.0 mm. No suspicious osteolytic or osteoblastic bone lesions. No acute bony abnormalities are evident. IMPRESSION: - No pulmonary emboli. - No acute infiltrates. - Cardiomegaly and post CABG changes. - Stable solid nodule in the left upper lobe measuring 0.9 cm with spiculated margins. Recommend cor relation with PET CT, biopsy, and/or continued follow-up. - Additional smaller solid pulmonary nodules should be followed. - Emphysema. - Infrarenal aortic aneurysm measuring 50.1 x [address] scans are performed using dose optimization techniques as appropriate to the performed exam an d include at least one of the following: Automated exposure control, adjustment of the mA and/or kV according t o size, and the use of iterative reconstruction technique.
[2023-05-18] MEDS ORDERED: ALBUTEROL 0.083% NEB NEB PRN (19:16)
[2023-05-18] MEDS ORDERED: VEKLURY 200 MG in SODIUM CHLORIDE 250 ML IV ONE (19:16)
[2023-05-18] MEDS: FLEXERIL PO PRN (20:22)
[2023-05-18] MEDS: DECADRON IVP SCH ×2 (20:30→20:31)
[2023-05-18] MEDS: LACTATED RINGERS 1,000 ML IV SCH (20:31)
[2023-05-18] MEDS: DUONEB NEB SCH (21:04)
[2023-05-18] MEDS ORDERED: ATIVAN PO ONE (21:35)
[2023-05-18] MEDS: LOPRESSOR PO SCH (21:49)
[2023-05-18] MEDS: NORVASC PO SCH (21:49)
[2023-05-18] MEDS: CRESTOR PO SCH (21:49)
[2023-05-18 22:48] VITALS: BMI 18.6
[2023-05-19] MEDS: DUONEB NEB SCH ×6 (01:51→21:10)
[2023-05-19] MEDS: TYLENOL PO PRN ×3 (04:32→20:01)
[2023-05-19] MEDS: LACTATED RINGERS 1,000 ML IV SCH (05:26)
[2023-05-19 05:34] LABS: HEMATOCRIT 40.7 % (42.0-52.0); HEMOGLOBIN 13.1 g/dl (14.0-18.0); IMMATURE GRANULOCYTE % (AUTO) 0.9 % (0.0-5.0); LYMPHOCYTES # (AUTO) 0.3 K/uL (0.60-3.4); LYMPHOCYTES % (AUTO) 14.2 (10.0-50.0); MEAN CORPUSCULAR HEMOGLOBIN 28.3 pg (27.0-31.0); MEAN CORPUSCULAR HGB CONC 32.2 (31.8-35.4); MEAN CORPUSCULAR VOLUME 87.9 fl (80.0-94.0); MONOCYTES # (AUTO) 0.1 K/uL (0.4-2.0); MONOCYTES % (AUTO) 3.8 (0-10); NEUTROPHILS # (AUTO) 1.7 K/ul (2.0-6.9); NEUTROPHILS % (AUTO) 81.1 % (42.2-75.2); PLATELET COUNT 99 10^3/uL (140-440); RDW COEFFICIENT OF VARIATION 14.5 % (11.6-14.8); RED BLOOD COUNT 4.63 10^6/ul (4.70-6.10); WHITE BLOOD COUNT 2.12 K/ul (4.2-10.2)
[2023-05-19 06:03] LABS: ALANINE AMINOTRANSFERASE 19.2 U/L (0-50); ALBUMIN 4.21 g/dL (3.5-5.0); ALKALINE PHOSPHATASE 100.3 U/L (56-119); ASPARTATE AMINO TRANSFERASE 42.5 U/L (17-59); BILIRUBIN,TOTAL 0.65 mg/dL (0.2-1.3); BLOOD UREA NITROGEN 26.3 mg/dL (9-20); CALCIUM 8.43 mg/dL (8.4-10.2); CARBON DIOXIDE 16.3 mmol/L (22-30.0); CHLORIDE 101.3 mmol/L (98-107); CREATININE 0.78 mg/dL (0.60-1.10); GLUCOSE 130.5 mg/dL (74-106); POTASSIUM 3.9 mmol/L (3.5-5.1); SODIUM 134.7 mmol/L (134.5-145); TOTAL PROTEIN 7.23 g/dL (6.3-8.2)
[2023-05-19] MEDS: COZAAR PO SCH (08:41)
[2023-05-19] MEDS: ALDACTONE PO SCH (08:41)
[2023-05-19] MEDS: NORVASC PO SCH ×2 (08:41→20:01)
[2023-05-19] MEDS: PLAVIX PO SCH (08:41)
[2023-05-19] MEDS: LOPRESSOR PO SCH ×2 (08:41→20:02)
[2023-05-19] MEDS: SODIUM BICARBONATE IV SCH ×2 (09:14→20:05)
[2023-05-19] MEDS: LACTATED RINGERS IV SCH ×2 (09:14→20:05)
[2023-05-19] MEDS: FLEXERIL PO PRN ×2 (10:33→20:02)
--- NOTE | 2023-05-19 10:49 | PCM ---
Date of Service Date Seen by Provider: 05/19/23 Time Seen by Provider: 08:45 Admit Day/Time Admission Date: 05/18/23 Reason for Admission Chief Complaint: COVID W/HYPOXIA Hospital Provider Hospital Provider[place]IKA [place] [facility] [place] Primary Care Physician: BRANDI BECKER MD History of Present Illness History of Present Illness: 88 yo presented to the ER with complaints of weakness and body aches. Patient reports that he had his meals on wheels delivered on of last week and found out that on Wednesday the courier delivery driver has Covid. States he started having symptoms on that evening. He was seen in the ER on Tuesday 05/16. Diagnosed with covid and sent home on paxlovid. States he has continued to have chills and body aches. Lives at home alone and has been weak as well. Denies any congestion or shortness of breath. He is a 2 ppd smoker. On arrival to ER, O2 sat was 92-93% on RA. Abg was obtained and showed low PO2. He was placed on 2L and has tolerated well. Per nursing staff he is moderate assistance with 2 at this time. Case Discussed With Case Discussed With: Patient's case was discussed with the ER Physicians, Dr. 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 Ambulated w/ cane in left hand. I63.9 - Cerebral infarction, unspecified (ICD-10) Nephropathy hypertensive Dr. Anderson routine f/u 03/30/17, fatigue, malaise, weakness, I12.9 - Hypertensive chronic kidney disease with stage 1 through stage 4 chronic kidney disease, or unspecified chronic kidney disease (ICD-10) Cerebrovascular accident I63.9 - Cerebral infarction, unspecified (ICD-10) Peripheral vascular disease I73.9 - Peripheral vascular disease, unspecified (ICD-10) Hyperlipidemia stopped crestor by DR. Anderson 08/2016. E78.5 - Hyperlipidemia, unspecified (ICD-10) Arthritis M19.90 - Unspecified osteoarthritis, unspecified site (ICD-10) AAA (abdominal aortic aneurysm) I71.4 - Abdominal aortic aneurysm, without rupture (ICD-10) Gout (09/24/16) Dr. Anderson. 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) Z95.1 - Presence of aortocoronary bypass graft (ICD-10) Family History FATHER Cardiac disease Hypertension Mother , advanced age Cancer skin BROTHER Cardiac disease PATERNAL GRANDFATHER CVA (cerebral vascular accident) UNCLE CVA (cerebral vascular accident) Social History Smoking and tobacco status: Current every day smoker Allergies Allergies Allergy/AdvReac Type Severity Reaction Status Date / Time lisinopril AdvReac Severe Swelling Verified 05/16/23 15:15 Current Medications Home Medications acetaminophen 500 mg tablet 500 mg PO QID PRN headache 30 days #60 tab-caps 10/30/20 [History Confirmed 05/18/23 Last Taken 05/18/23] epinephrine 0.3 mg/0.3 mL injection, auto-injector (EpiPen) 0.3 mg (0.3 mL) IM ONCE #1 ea 05/07/22 [Rx Confirmed 05/18/23 Last Taken Unknown] amlodipine 5 mg tablet 5 mg PO BID 90 days #180 tab-caps 06/15/22 [Rx Confirmed 05/18/23 Last Taken 05/18/23] losartan 100 mg tablet 100 mg PO DAILY #90 tabs 06/15/22 [Rx Confirmed 05/18/23 Last Taken 05/18/23] metoprolol tartrate 50 mg tablet 50 mg PO BID 90 days #180 tab-caps 06/15/22 [Rx Confirmed 05/18/23 Last Taken 05/18/23] spironolactone 25 mg tablet 12.5 mg (1/2 x 25 mg) PO QDAY #90 tabs 07/23/22 [Rx Confirmed 05/18/23 Last Taken Unknown] Vascepa 1 gram capsule (icosapent ethyl) See Rx Instructions .Route .COMPLEX #120 caps 10/21/22 [Rx Confirmed 05/18/23 Last Taken 05/18/23 09:18] rosuvastatin 10 mg tablet (Crestor) 10 mg PO BEDTIME 90 days #90 tab-caps 02/18/23 [Rx Confirmed 05/18/23 Last Taken 05/17/23] clopidogrel 75 mg tablet 75 mg PO DAILY 90 days #90 tab-caps 03/17/23 [Rx Confirmed 05/18/23 Last Taken 05/18/23] Home Acetaminophen (Acetaminophen 325 Mg Tablet) 650 mg PO Q4H PRN PRN Reason: Mild Pain Last Admin: 05/19/23 04:32 Dose: 650 mg Albuterol Sulfate (Albuterol Sulfate 0.083% Vial.Neb) 2.5 mg NEB RTQ4H PRN PRN Reason: Wheezing Albuterol/Ipratropium (Ipratropium/Albuterol Vial.Neb) 3 ml NEB RTQ4H SHIRLENE Last Admin: 05/19/23 09:55 Dose: 3 ml Amlodipine Besylate (Amlodipine Besylate 5 Mg Tablet) 5 mg PO BID [facility] Last Admin: 05/19/23 08:41 Dose: 5 mg Clopidogrel Bisulfate (Clopidogrel Bisulfate 75 Mg Tablet) 75 mg PO DAILY [facility] Last Admin: 05/19/23 08:41 Dose: 75 mg Cyclobenzaprine HCl (Cyclobenzaprine Hcl 10 Mg Tablet) 10 mg PO BID PRN PRN Reason: Spasms Last Admin: 05/19/23 10:33 Dose: 10 mg Dexamethasone Sodium Phosphate (Dexamethasone Sod Phos 10 Mg/Ml Inj) 6 mg IVP BEDTIME [facility] Remdesivir 100 mg/ Sodium (Chloride) 100 mls @ 200 mls/hr IV BEDTIME [facility] Stop: 05/22/23 21:29 Sodium Bicarbonate 50 meq/ (Lactated Ringer's) 1,050 mls @ 100 mls/hr IV .Q 10H30M [facility] Last Admin: 05/19/23 09:14 Dose: 100 mls/hr Losartan Potassium (Losartan Potassium 100 Mg Tablet) 100 mg PO DAILY [facility] Last Admin: 05/19/23 08:41 Dose: 100 mg Metoprolol Tartrate (Metoprolol Tartrate 50 Mg Tablet) 50 mg PO BID [facility] Last Admin: 05/19/23 08:41 Dose: 50 mg Rosuvastatin Calcium (Rosuvastatin Calcium 10 Mg Tablet) 10 mg PO BEDTIME [facility] Last Admin: 05/18/23 21:49 Dose: 10 mg Spironolactone (Spironolactone 25 Mg Tablet) 12.5 mg PO DAILY [facility] Last Admin: 05/19/23 08:41 Dose: 12.5 mg Discontinued Medications Dexamethasone Sodium Phosphate (Dexamethasone Sod Phos 10 Mg/Ml Inj) 6 mg IVP 1999 [facility] Last Admin: 05/18/23 20:31 Dose: Not Given Acetaminophen (Acetaminophen) 1,000 mg in 100 mls @ 400 mls/hr IV ONCE ONE Stop: 05/18/23 16:44 Last Admin: 05/18/23 16:55 Dose: 400 mls/hr Lactated Ringer's (Lactated Ringers) 1,000 mls @ 100 mls/hr IV .Q10H [facility] Last Infusion: 05/19/23 09:14 Dose: Infused Remdesivir 200 mg/ Sodium (Chloride) 250 mls @ 250 mls/hr IV ONCE ONE Stop: 05/18/23 20:15 Last Admin: 05/18/23 21:40 Dose: 250 mls/hr Lorazepam (Lorazepam 1 Mg Tablet) 1 mg PO ONCE ONE Stop: 05/18/23 21:36 Last Admin: 05/18/23 21:57 Dose: 1 mg Opioid Naive vs. Tolerant Does Patient Take Opioids?: No Is Patient Opioid Naive?: Yes What is Opioid Naive?: *Opioid Naive implies the patient is not already taking opioids or not chronically receiving opioids on a daily basis. *PRN dosing is not "usually" associated with tolerance. *Patients are at higher risk of over-sedation and aspiration. Is Patient Opioid Tolerant?: No What is Opioid Tolerant?: *Opioid Tolerance implies less than the expected response to an opioid. *Acquired tolerance is defined by the patient taking 60mg of oral morphine daily (or equianalgesic dose of another opioid) for 1 week or more. *Often associated with chronic pain. *May take more than usual dose to achieve desired pain control. Review of Systems Constitutional: Reports Chills and Weakness Head: Reports Normocephalic Eyes: Reports No symptoms Ears: Reports No symptoms Nose: Reports No symptoms Mouth: Reports No symptoms Throat: Reports No symptoms Cardiovascular: Reports No symptoms Respiratory: Reports No symptoms Gastrointestinal: Reports No symptoms Genitourinary: Reports No Symptoms Musculoskeletal: Reports No symptoms Endocrine: Reports No symptoms Hematology: Reports No symptoms Immunology: Reports No symptoms Neurological: Reports No symptoms Psychiatric: Reports No symptoms Physical examination Most Recent Vital Signs: Most Recent Vital Signs Temperature 97.2 F L 05/19/23 10:00 Temperature Source Tympanic 05/19/23 10:00 Temperature Source Infrared 05/18/23 16:29 Pulse Rate 66 05/19/23 10:00 Respiratory Rate 24 H 05/19/23 10:00 Blood Pressure 156/86 H 05/19/23 10:00 Blood Pressure Mean 109 05/19/23 10:00 Blood Pressure Right Arm 166/81 05/18/23 19:47 Blood Pressure Location Left Arm 05/19/23 10:00 Blood Pressure Position Supine 05/19/23 10:00 O2 Sat by Pulse Oximetry 96 05/19/23 10:00 Oxygen Delivery Method Room Air 05/19/23 10:00 Oxygen Flow Rate 2 05/19/23 10:00 Height 6 ft 05/18/23 19:47 Weight 137 lb 05/18/23 19:47 Telemetry Type Bedside Monitor 05/19/23 07:00 Telemetry Monitoring Continues 05/19/23 07:00 Irregular Telemetry Rate (Approximate) 60-70 BPM 05/18/23 20:14 Telemetry Heart Rate 65 05/19/23 07:00 Telemetry SPO2 95 05/19/23 07:00 EKG WV Interval 0.26 H 05/19/23 07:00 EKG QRS Interval 0.10 05/19/23 07:00 Telemetry Strip Reading NSR 1st degree AVB 05/19/23 07:00 Appearance: Positive No Apparent Distress, Alert and Oriented x3, Ill-Appearing, Thin and Cachectic Skin: Positive Warm and Other (hyperkeratotic lesions to bilateral feet, no open wounds visible; dusky appearances to BLE) HEENT: Positive Normocephalic and PERRLA Neck: Positive Midline Trachea Chest/Lungs: Positive Symmetrical With Equal Breath Sounds, Clear to Auscultation Bilaterally and Good Air Movement all 4 Lung Rose Heart: Positive RRR and Pulses Normal GI/: Positive Soft, Nontender, Bowel Sounds Normal and No Distention Musculoskeletal: Positive Not Examined Extremities: Positive Intact Peripheral Pulses, Stable Joints Without Laxity and Good ROM in All Joints Neurological: Positive Sensation Intact, Motor intact, Reflexes Intact, Alert, Oriented and Other (generalized weakness) Labs This Visit Labs This Visit: Labs This Visit 05/18/23 05/18/23 05/18/23 16:50 16:51 20:37 WBC 3.53 L RBC 4.58 L Hgb 13.3 L Hct 39.7 L MCV 86.7 MCH 29.0 MCHC 33.5 RDW Coeff of Elsa 14.5 Plt Count 105 L Immature Gran % (Auto) 0.3 Neut % (Auto) 78.5 H Lymph % (Auto) 13.3 [place] % (Auto) 7.6 Eos % (Auto) 0.0 Baso % (Auto) 0.3 Neut # (Auto) 2.8 Lymph # (Auto) 0.5 L [place] # (Auto) 0.3 L Eos # (Auto) 0.0 Baso # (Auto) 0.0 Immature Gran # (Auto) 0.0 PT INR Puncture Site Rrad Base Excess -3.1 L O2 Saturation 88.4 L ABG pH 7.44 ABG pCO2 31.0 L ABG pO2 53.0 L* ABG HCO3 21.1 ABG Total CO2 22.1 Evangelist Test Pos Hemoglobin 0.8 Oxyhemoglobin 86.2 L Carboxyhemoglobin 0.9 Total Hemoglobin 12.7 FiO2 % 21.0 Sodium 135.4 Potassium 3.67 Chloride 100.1 Carbon Dioxide 18.3 L Anion Gap 20.67 BUN 28.1 H Creatinine 0.94 Estimated GFR (MDRD) 76.00 BUN/Creatinine Ratio 29.89 Glucose 102.5 Lactic Acid 1.47 Calcium 8.76 Magnesium 2.00 Total Bilirubin 0.77 AST 44.4 ALT 21.8 Alkaline Phosphatase 109.0 Troponin I 0.038 Total Protein 7.48 Albumin 4.36 Globulin 3.12 Albumin/Globulin Ratio 1.39 Procalcitonin < 0.05 05/19/23 05/19/23 05:26 07:55 WBC 2.12 L RBC 4.63 L Hgb 13.1 L Hct 40.7 L MCV 87.9 MCH 28.3 MCHC 32.2 RDW Coeff of Elsa 14.5 Plt Count 99 L Immature Gran % (Auto) 0.9 Neut % (Auto) 81.1 H Lymph % (Auto) 14.2 [place] % (Auto) 3.8 Eos % (Auto) 0.0 Baso % (Auto) 0.0 Neut # (Auto) 1.7 L Lymph # (Auto) 0.3 L [place] # (Auto) 0.1 L Eos # (Auto) 0.0 Baso # (Auto) 0.0 Immature Gran # (Auto) 0.0 PT 11.0 INR 1.06 Puncture Site Base Excess O2 Saturation ABG pH ABG pCO2 ABG pO2 ABG HCO3 ABG Total CO2 Evangelist Test Hemoglobin Oxyhemoglobin Carboxyhemoglobin Total Hemoglobin FiO2 % Sodium 134.7 Potassium 3.90 Chloride 101.3 Carbon Dioxide 16.3 L Anion Gap 21.00 BUN 26.3 H Creatinine 0.78 Estimated GFR (MDRD) 94.00 BUN/Creatinine Ratio 33.71 Glucose 130.5 H Lactic Acid Calcium 8.43 Magnesium Total Bilirubin 0.65 AST 42.5 ALT 19.2 Alkaline Phosphatase 100.3 Troponin I Total Protein 7.23 Albumin 4.21 Globulin 3.02 Albumin/Globulin Ratio 1.39 Procalcitonin Imaging Imaging: EXAM: CTA CHEST WITH CONTRAST HISTORY: COVID-19, smoker and shortness of breath COMPARISON: CTA chest from 02/04/2023 TECHNIQUE: Multi-slice transaxial helical images are acquired through the chest according to an angiogram protocol. 3-D volume images are provided. All CT scans are performed using dose optimization techniques as appropriate to the performed exam and includes at least one of the following: Automated exposure control, adjustment of the mA and/or kV according to size, and the use of iterative reconstruction technique. CONTRAST: 125 mL Omnipaque-350 IV FINDINGS: The pulmonary ateries are free of intraluminal filling defects. The ascending aorta is ectatic to 32.2 mm. The descending aorta is ectatic to 34.0 mm. The heart is mildly enlarged. Post CABG changes are noted. No pericardial or pleural effusions. No aortic dissection. No suspicious lymphadenopathy. There is a stable solid spiculated nodule in the left upper lobe measuring up to 0.9 cm on series 15 image number 32. The lungs are emphysematous. Minimal bilateral apical pleural parenchymal scarring is noted. There is a stable solid nodule in the right upper lobe measuring 0.3 cm on image number 43. There is a stable solid nodule in the left lower lobe measuring 0.3 cm on series 15 image number 101. Additional micro nodules are unchanged. No new nodules or acute infiltrates. Minimal dependent atelectasis. There is a small simple cyst in hepatic segment six. Simple acquired renal cysts are noted bilaterally. The solid organs otherwise normal visualized portions of the upper abdomen. Calculi are noted in the gallbladder lumen. A fusiform infrarenal abdominal aortic aneurysm is 50.1 x 50.0 mm. No suspicious osteolytic or osteoblastic bone lesions. No acute bony abnormalities are evident. IMPRESSION: - No pulmonary emboli. - No acute infiltrates. - Cardiomegaly and post CABG changes. - Stable solid nodule in the left upper lobe measuring 0.9 cm with spiculated margins. Recommend correlation with PET CT, biopsy, and/or continued follow-up. - Additional smaller solid pulmonary nodules should be followed. - Emphysema. - Infrarenal aortic aneurysm measuring 50.1 x 50.0 mm. Review Statement Review Statement: I have independently reviewed and interpreted the labs/EKGs/imaging that were ordered by the ER provider. I have reviewed all outside records that are available currently in our EMR including imaging/notes/labs from previous visits. Plan Plan: 1. Acute Hypoxic Respiratory Failure in setting of Covid-19 - wean O2 as tolerated, nebs, steroids 2. Covid-19 - remdesivir loading dose given yesterday, starting daily dose today, steroids daily, nebs 3. Metabolic Acidosis - CO2 declined overnight, started on sodium bicarb this am, serial bmp to monitor improvement 4. Thrombocytopenia - secondary to Covid-19, hold anticoag if platelets become<50, monitor 5. Leukopenia - secondary to Covid-19, monitor 6. COPD - chronic, stable, monitor 7. CKD - at baseline, monitor 8. Hypertension - chronic, continue home medications 9. Weakness/Poor Home conditions - concern for safe discharge, will discuss with family dispo plans, PT/OT to eval and treat DVT Prophylaxis: Plavix Time Spent: Greater than 80 minutes spent with patient, 50% of the time spent with this patient was devoted to counseling and coordination of care. Advanced Care Plannin minutes spent discussing advance care planning. Smoking Cessation: 5 minutes spent discussing smoking cessation. Disposition: Admit to: Med/surg Inpatient Full Code Discussed Plan of Care with Dr. Mango Clarke. Medications Medication Orders: Medications Ordered Category Date Time Status Acetaminophen [Tylenol] Meds 05/18/23 19:16 Active 650 mg PO Q4H PRN Albuterol Sulfate 0.083% Neb [Albuterol 0.083% Neb] Meds 05/18/23 19:16 Active 2.5 mg NEB RTQ4H PRN Amlodipine Besylate [Norvasc] Meds 05/18/23 21:00 Active 5 mg PO BID Clopidogrel Bisulfate [Plavix] Meds 05/19/23 09:00 Active 75 mg PO DAILY Cyclobenzaprine HCl [Flexeril] Meds 05/18/23 20:12 Active 10 mg PO BID PRN Dexamethasone Sod Phosphate [Decadron] Meds 05/19/23 21:00 Active 6 mg IVP BEDTIME Ipratropium/Albuterol Neb [Duoneb] Meds 05/18/23 22:00 Active 3 ml NEB RTQ4H Losartan Potassium [Cozaar] Meds 05/19/23 09:00 Active 100 mg PO DAILY Metoprolol Tartrate [Lopressor] Meds 05/18/23 21:00 Active 50 mg PO BID Remdesivir [Veklury] 100 mg Meds 05/19/23 21:00 Active 0.9 % Sodium Chloride [Sodium Chloride 100Ml] 100 ml IV BEDTIME Ringers Lactated Solution [Lactated Ringers] 1,000 ml Meds 05/19/23 09:00 Active Sodium Bicarb 8.4% Vial [Sodium Bicarbonate 8.4%] 50 meq IV 100 mls/hr Rosuvastatin Calcium [Crestor] Meds 05/18/23 21:00 Active 10 mg PO BEDTIME Spironolactone [Aldactone] Meds 05/19/23 09:00 Active 12.5 mg PO DAILY
--- NOTE | 2023-05-19 16:45 | RS.PTINEVL ---
Subjective Patient information Date of Evaluation: 05/19/23 Date of Arrival on Unit: 05/18/23 Admitted From:: Home Diagnosis: COVID, acute hypoxic resp failure Living Arrangement Comments: Lives alone with his dog Home Environment: House, Stairs (few) (2) and No rail Medical History: Hypertension, CVA/TIA, COPD, Arthritis (OA and gout) and Cancer (prostate) Medical History Comments:: AAA, CKD, PVD LATEX ALLERGY?: No Medications: see chart Subjective Information/ Patient Comments:: pt states that he is tired and cold and wants to go back to bed. States he does not walk much at home. Level of function Abilities prior to this admission: pt states his nephews assisted with many ADL's Current Level of Function: Dependent Current Equipment Used at Home: Rolling walker Pain Assessement Location B LE: Description: Tightness, Sharp and Aching Pain Behavior: Moaning, Irritability and Facial Grimacing Pain Aggravating Factors: Exercise/Activity Pain Alleviating Factors: Medication Interventions Objective Patient Orientation: Person and Place Current Interventions: IV's, Oxygen and Telemetry Observation: pt appears frail with increased thoracic kyphosis, rounded shoulders. Range of Motion ROM Right Upper Extremity AROM: WFL's Left Upper Extremity AROM: WFL's Right Lower Extremity AROM: Slight limitation (decreased knee ext ) Left Lower Extremity AROM: Moderate limitation (decreased knee ext (approx -30)) Muscle Strength Muscle Strength Right Upper Extremity: Moderate Weakness (grossly 4-/5) Left Upper Extremity: Moderate Weakness (grossly 4-/5) Right Lower Extremity: Moderate Weakness (hip flex 3+/5, knee flex 4-/5, ext 3- /5, ankle DF/PF 4-/5) Left Lower Extremity: Moderate Weakness (hip flex 3+/5, knee flex 4-/5, ext 3- /5, ankle DF/PF 4-/5) Sensation Sensation Right Upper Extremity: Intact/Normal Left Upper Extremity: Intact/Normal Right Lower Extremity: Intact/Normal Left Lower Extremity: Intact/Normal Palpation Palpation Findings: Tenderness (B knees ) Balance Sitting Balance and Reactions Static Sitting Balance: Poor Dynamic Sitting Balance: Poor Standing Balance and Reactions Static Standing Balance: Poor Dynamic Standing Balance: Poor Standing Equilibrium Reactions: Delayed Left and Delayed Right Standing Protective Reactions: Delayed Left and Delayed Right Comments Balance Assessment Comments: pt unable to achieve stand without max of 2 unable to maintain stand without max of 2 Functional Mobility Bed Mobility Scooting: Max Assist and 2 person assist Sit to Supine: Max Assist and 2 person assist Transfers Sit to Stand: Max Assist and 2 person assist Stand to Sit: Max Assist and 2 person assist Comments:: pt stood and took 2 steps with rwx from chair to bed. pt was max assist and not able to bear full weight on BLE's. pt fearful and crying out during transfer. pt stood with arms ext, hips/knees flexed. Safety Awareness Safety Awareness: Poor ARNOLD INDEX SCORE: n/a Treatment time Units charged ADL: 1 (TA) Time with patient Length of Evaluation: 18 Total treatment time: 29 Patient Education Education Patient Education: Education of Plan of Care Teaching Recipient: Patient Teaching Methods: Discussion Assessment Assessment Problem List:: Decreased level of function, Requires training/education, Decreased safety/Risk of falls, Weakness and Cognitive status limits abilities Rehab Potential: Fair Further Therapy Indicated?: Yes Candidate for Swing Bed for Therapy Services?: Feel pt is not a candidate for swing bed due to feel pt will require intermediate manager care. pt does not appear to have been mobile at home prior to illness. Evaluation Complexity: HISTORY: Medium, EXAM OF BODY SYSTEMS: Medium, CLINICAL PRESENTATION: Medium and CLINICAL DECISION MAKING: Medium Patient's Goal(s): pt unable to express Short Term Goals GOAL #1: Rolling with bedrails with mod x 1 Goal to be met by: 05/21/23 GOAL #2: Transfer sup to/from sit mod x 1 Goal to be met by: 05/21/23 GOAL #3: Transfer sit to/from stand mod x 2 Goal to be met by: 05/21/23 GOAL #4: pt perform stand pivot bed to/from chair with mod x 2 Goal to be met by: 05/21/23 GOAL #5: pt able to sit at side of bed unsupported x 1 min Goal to be met by: 05/21/23 Drum Loader And Unloader Goals GOAL #1: Transfer sup to/from sit to/from stand mod x 1 Goal to be met by: 05/24/23 GOAL #2: Stand pivot bed to/from chair mod x 1 Goal to be met by: 05/24/23 GOAL #3: maintain sit balance against min challenges reaching away/across midline Goal to be met by: 05/24/23 Plan Plan of Care: Therapeutic EX, Neuromuscular Re-Educ and Therapeutic Activity Other:: progress to gait if able Frequency of Treatment: 1-2 X day, as tolerated Duration of Treatment: 5 days Anticipated Discharge Destination: undetermined Treatment Diagnosis (ICD 10 Codes): impaired balance R 26.81 weakness M62.81 risk of falls Has the Physician been added for Co-signature?: Yes
[2023-05-19 17:52] LABS: CALCIUM 8.1 mg/dL (8.4-10.2); CREATININE 0.7 mg/dL (0.60-1.10); POTASSIUM 3.5 mmol/L (3.5-5.1)
[2023-05-19] MEDS: CRESTOR PO SCH (20:01)
[2023-05-19] MEDS: DECADRON IVP SCH (20:03)
[2023-05-19] MEDS: VEKLURY 100 MG in SODIUM CHLORIDE 100ML 100 ML IV SCH (20:04)
[2023-05-19] MEDS ORDERED: SODIUM BICARBONATE 8.4% ONE (20:56)
[2023-05-20] MEDS: DUONEB NEB SCH ×6 (01:01→21:35)
[2023-05-20] MEDS: TYLENOL PO PRN ×3 (05:14→15:27)
[2023-05-20 05:18] LABS: HEMATOCRIT 36.2 % (42.0-52.0); HEMOGLOBIN 11.9 g/dl (14.0-18.0); IMMATURE GRANULOCYTE % (AUTO) 0.2 % (0.0-5.0); LYMPHOCYTES # (AUTO) 0.5 K/uL (0.60-3.4); LYMPHOCYTES % (AUTO) 9.8 (10.0-50.0); MEAN CORPUSCULAR HEMOGLOBIN 28.6 pg (27.0-31.0); MEAN CORPUSCULAR HGB CONC 32.9 (31.8-35.4); MONOCYTES # (AUTO) 0.2 K/uL (0.4-2.0); MONOCYTES % (AUTO) 4.4 (0-10); NEUTROPHILS # (AUTO) 4.1 K/ul (2.0-6.9); NEUTROPHILS % (AUTO) 85.6 % (42.2-75.2); PLATELET COUNT 93 10^3/uL (140-440); RDW COEFFICIENT OF VARIATION 14.6 % (11.6-14.8); RED BLOOD COUNT 4.16 10^6/ul (4.70-6.10); WHITE BLOOD COUNT 4.82 K/ul (4.2-10.2)
[2023-05-20 05:37] LABS: ALBUMIN 3.6 g/dL (3.5-5.0); BILIRUBIN,TOTAL 0.5 mg/dL (0.2-1.3); CREATININE 0.7 mg/dL (0.60-1.10); POTASSIUM 3.5 mmol/L (3.5-5.1); TOTAL PROTEIN 6.4 g/dL (6.3-8.2)
[2023-05-20 05:38] LABS: PROTHROMBIN TIME 11.9 SEC (9.3-11.0)
[2023-05-20] MEDS: SODIUM BICARBONATE IV SCH ×3 (06:23→16:45)
[2023-05-20] MEDS: LACTATED RINGERS IV SCH ×3 (06:23→16:45)
[2023-05-20] MEDS: FLEXERIL PO PRN ×2 (07:22→16:27)
[2023-05-20] MEDS: NORVASC PO SCH (08:11)
[2023-05-20] MEDS: LOPRESSOR PO SCH ×2 (08:11→20:44)
[2023-05-20] MEDS: ALDACTONE PO SCH (08:11)
[2023-05-20] MEDS: COZAAR PO SCH (08:11)
[2023-05-20] MEDS: PLAVIX PO SCH (08:11)
[2023-05-20] MEDS ORDERED: NEURONTIN PO ONE (08:16)
[2023-05-20] MEDS ORDERED: ATIVAN IVP ONE (08:34)
[2023-05-20] MEDS ORDERED: GLYDO TRANSURETH ONE ×2 (09:01)
[2023-05-20] MEDS ORDERED: GLYDO ONE (09:05)
--- NOTE | 2023-05-20 09:11 | PCM.PROG ---
Date/Time Seen Date Seen by Provider: 05/20/23 Time Seen by Provider: 08:45 Provider Provider: CHIKA OBRIEN, [facility] Chief Complaint Chief Complaint: COVID W/HYPOXIA Subjective Subjective: Had episode of aspiration yesterday evening. Additional episode during rounds this am. Patient had just taken meds with a drink of water. O2 sat dropped down to 81% on 2L. HOB was raised. Nursing staff suctioned patient. Patient recovered well. O2 increased back to 93%. Patient now NPO until speech can evaluate. Chest x-ray ordered. Will treat with zosyn if pneumonia developing. Patient complaining of leg muscle spasms that start in his hip and radiate down into his foot specifically the left side. Flexeril has been given without relief. Patient also has history of ETOH abuse and has been agitated per nursing staff. 1 mg ativan IVP ordered at this time to r/o ETOH withdrawal. Patient also has had minimal urine output and is incontinent. Bladder scan showed >999. [place] catheter ordered. Objective Appearance: Positive Ill-Appearing, Thin and Cachectic Chest/Lungs: Positive Symmetrical With Equal Breath Sounds and Rhonci (bilaterally) Heart: Positive RRR and Pulses Normal GI/: Positive Soft, Nontender, Bowel Sounds Normal and Other (mild low abdomen distention) Musculoskeletal: Positive Not Examined Neurological: Positive Sensation Intact, Motor intact, Reflexes Intact, Alert, Disorinted and Other (generalized weakness) Vital Signs Vital Signs: Vital Signs: Last 24 Hours 05/19/23 09:54 05/19/23 10:00 05/19/23 13:00 Temperature 97.2 F L Temperature Source Tympanic Pulse Rate 66 Respiratory Rate 24 H Blood Pressure 156/86 H Blood Pressure Mean 109 Blood Pressure Location Left Arm Blood Pressure Position Supine O2 Sat by Pulse Oximetry 95 96 Oxygen Delivery Method Nasal Cannula Room Air Oxygen Flow Rate 2 2 Telemetry Type Bedside Monitor Telemetry Monitoring Continues Telemetry Heart Rate 59 L Telemetry SPO2 94 EKG LA Interval 0.33 H EKG QRS Interval 0.09 Telemetry Strip Reading Sinus Maurilio w/ 1st degree AVB 05/19/23 13:48 05/19/23 14:00 05/19/23 17:55 Temperature 97.6 F Temperature Source Tympanic Pulse Rate 60 65 Respiratory Rate 18 22 H Blood Pressure 151/73 H 127/70 Blood Pressure Mean 99 89 Blood Pressure Location Left Arm Right Arm Blood Pressure Position Supine Sitting O2 Sat by Pulse Oximetry 94 L 95 95 Oxygen Delivery Method Nasal Cannula Nasal Cannula Nasal Cannula Oxygen Flow Rate 2 2 2 Telemetry Type Telemetry Monitoring Telemetry Heart Rate Telemetry SPO2 EKG LA Interval EKG QRS Interval Telemetry Strip Reading 05/19/23 19:00 05/19/23 19:12 05/19/23 19:58 Temperature 97 F L Temperature Source Oral Pulse Rate Respiratory Rate 18 Blood Pressure 129/74 Blood Pressure Mean 92 Blood Pressure Location Right Arm Blood Pressure Position O2 Sat by Pulse Oximetry 95 Oxygen Delivery Method Nasal Cannula Nasal Cannula Oxygen Flow Rate 2 2 Telemetry Type Bedside Monitor Telemetry Monitoring Continues Telemetry Heart Rate 70 Telemetry SPO2 95 EKG LA Interval 0.27 H EKG QRS Interval 0.05 L Telemetry Strip Reading SR/1st degree AVB 05/19/23 20:00 05/19/23 20:27 05/19/23 22:10 Temperature 97 F L 97 F L Temperature Source Oral Temporal Artery Scan Pulse Rate 72 70 Respiratory Rate 21 H 23 H Blood Pressure 143/80 H 132/72 Blood Pressure Mean 101 92 Blood Pressure Location Right Arm Right Arm Blood Pressure Position Supine Supine O2 Sat by Pulse Oximetry 94 L 94 L Oxygen Delivery Method Nasal Cannula Room Air Nasal Cannula Oxygen Flow Rate 2 2 2 Telemetry Type Telemetry Monitoring Telemetry Heart Rate Telemetry SPO2 EKG LA Interval EKG QRS Interval Telemetry Strip Reading 05/20/23 00:54 05/20/23 05:07 05/20/23 05:45 Temperature 97 F L Temperature Source Temporal Artery Scan Pulse Rate 52 L Respiratory Rate 15 Blood Pressure 140/71 Blood Pressure Mean 94 Blood Pressure Location Right Arm Blood Pressure Position Supine O2 Sat by Pulse Oximetry 96 97 Oxygen Delivery Method Nasal Cannula Nasal Cannula Oxygen Flow Rate 2 2 Telemetry Type Bedside Monitor Telemetry Monitoring Continues Telemetry Heart Rate 60 Telemetry SPO2 98 EKG LA Interval 0.27 H EKG QRS Interval 0.06 Telemetry Strip Reading SR WITH 1ST DEGREE AVB & PVC 05/20/23 07:00 Temperature Temperature Source Pulse Rate Respiratory Rate Blood Pressure Blood Pressure Mean Blood Pressure Location Blood Pressure Position O2 Sat by Pulse Oximetry Oxygen Delivery Method Oxygen Flow Rate Telemetry Type Bedside Monitor Telemetry Monitoring Continues Telemetry Heart Rate 67 Telemetry SPO2 93 EKG LA Interval 0.42 H EKG QRS Interval 0.09 Telemetry Strip Reading NSR, 1st degree AV block with PVCs Lab Results Lab Results: Lab Results: Last 24 Hours 05/20/23 05/19/23 05:05 17:36 WBC 4.82 RBC 4.16 L Hgb 11.9 L Hct 36.2 L MCV 87.0 MCH 28.6 MCHC 32.9 RDW Coeff of Elsa 14.6 Plt Count 93 L Immature Gran % (Auto) 0.2 Neut % (Auto) 85.6 H Lymph % (Auto) 9.8 L [place] % (Auto) 4.4 Eos % (Auto) 0.0 Baso % (Auto) 0.0 Neut # (Auto) 4.1 Lymph # (Auto) 0.5 L [place] # (Auto) 0.2 L Eos # (Auto) 0.0 Baso # (Auto) 0.0 Immature Gran # (Auto) 0.0 PT 11.9 H INR 1.15 Sodium 132.0 L 135.0 Potassium 3.50 3.50 Chloride 102.0 100.0 Carbon Dioxide 21.0 L 20.0 L Anion Gap 12.50 18.50 BUN 26.0 H 25.0 H Creatinine 0.70 0.70 Estimated GFR (MDRD) 106.00 106.00 BUN/Creatinine Ratio 37.14 35.71 Glucose 155.0 H 137.0 H Calcium 8.00 L 8.10 L Total Bilirubin 0.50 AST 39.0 ALT 18.0 Alkaline Phosphatase 96.0 Total Protein 6.40 Albumin 3.60 Globulin 2.80 Albumin/Globulin Ratio 1.28 Additional Comments Additional Comments: I have independently reviewed and interpreted the labs/EKGs/imaging ordered during this hospital stay. I have reviewed outside records that are available in our EMR that pertain to medical stay including imaging/notes/labs from previous visits. Active Medications Active Medications: Medications Generic Name Dose Route Start Last Admin Trade Name Freq PRN Reason Stop Dose Admin Acetaminophen 650 mg 05/18/23 19:16 05/20/23 05:14 Acetaminophen 325 Mg Tablet PO 650 mg Q4H PRN Administration Mild Pain Albuterol Sulfate 2.5 mg 05/18/23 19:16 Albuterol Sulfate 0.083% Vial.Neb NEB RTQ4H PRN Wheezing Albuterol/Ipratropium 3 ml 05/18/23 22:00 05/20/23 04:45 Ipratropium/Albuterol Vial.Neb NEB 3 ml RTQ4H SHIRLENE Administration Amlodipine Besylate 5 mg 05/18/23 21:00 05/20/23 08:11 Amlodipine Besylate 5 Mg Tablet PO 5 mg BID SHIRLENE Administration Clopidogrel Bisulfate 75 mg 05/19/23 09:00 05/20/23 08:11 Clopidogrel Bisulfate 75 Mg Tablet PO 75 mg DAILY SHIRLENE Administration Cyclobenzaprine HCl 10 mg 05/18/23 20:12 05/20/23 07:22 Cyclobenzaprine Hcl 10 Mg Tablet PO 10 mg BID PRN Administration Spasms Dexamethasone Sodium Phosphate 6 mg 05/19/23 21:00 05/19/23 20:03 Dexamethasone Sod Phos 10 Mg/Ml Inj IVP 6 mg BEDTIME SHIRLENE Administration Remdesivir 100 mg/ Sodium 100 mls @ 200 mls/hr 05/19/23 21:00 05/19/23 20:04 Chloride IV 05/22/23 21:29 200 mls/hr BEDTIME SHIRLENE Administration Sodium Bicarbonate 50 meq/ 1,050 mls @ 100 mls/hr 05/19/23 09:00 05/20/23 06:23 Lactated Ringer's IV Not Given .[id number] SHIRLENE Losartan Potassium 100 mg 05/19/23 09:00 05/20/23 08:11 Losartan Potassium 100 Mg Tablet PO 100 mg DAILY SHIRLENE Administration Metoprolol Tartrate 50 mg 05/18/23 21:00 05/20/23 08:11 Metoprolol Tartrate 50 Mg Tablet PO 50 mg BID SHIRLENE Administration Rosuvastatin Calcium 10 mg 05/18/23 21:00 05/19/23 20:01 Rosuvastatin Calcium 10 Mg Tablet PO 10 mg BEDTIME SHIRLENE Administration Spironolactone 12.5 mg 05/19/23 09:00 05/20/23 08:11 Spironolactone 25 Mg Tablet PO 12.5 mg DAILY SHIRLENE Administration Plan Plan: 1. Acute Hypoxic Respiratory Failure in setting of Covid-19 - wean O2 as tolerated, nebs, steroids 2. Covid-19 - remdesivir, steroids daily, nebs 3. Metabolic Acidosis - CO2 improving, sodium bicarb continued, serial bmp to monitor improvement 4. Aspiration - checking chest x-ray, will treat pneumonia with zosyn if present, speech eval kelsi, NPO until completed 5. Thrombocytopenia - secondary to Covid-19, hold anticoag if platelets become<50, monitor 6. Leukopenia - Resolved, secondary to Covid-19, monitor 7. COPD - chronic, stable, monitor 8. CKD - at baseline, monitor 9. Hypertension - chronic, continue home medications 10. Weakness/Poor Home conditions - concern for safe discharge, will discuss with family dispo plans, PT/OT to eval and treat DVT Prophylaxis: Plavix Review Statement Review Statement: I have personally discussed and reviewed the patient's visit/currently lab s/imaging/decision making with Dr. Clarke, my supervising attending. Greater that 50 minutes spent with patient, 50% of the time spent with this patient was devoted to counseling and coordination of care.
[2023-05-20] MEDS: NYSTATIN CREAM TP PRN ×3 (09:53→20:45)
[2023-05-20 09:54] LABS: BILIRUBIN,URINE Negative (NEGATIVE); CLARITY,URINE Clear (CLEAR); COLOR,URINE Yellow (YELLOW); GLUCOSE, URINE (UA) Negative (NEGATIVE); KETONES,URINE 1+ (NEGATIVE); LEUKOCYTE ESTERASE ,URINE Negative (NEGATIVE); NITRITE,URINE Negative (NEGATIVE); PH,URINE 6.5 (5-9); PROTEIN,URINE 3+ (NEGATIVE); URINE, BLOOD 2+ (NEGATIVE); UROBILINOGEN,URINE 0.2 (0.2)
[2023-05-20 10:01] LABS: SQUAMOUS EPITHELIAL CELL,UR NOT PRESENT (0-5)
[2023-05-20 10:06] LABS: BACTERIA,URINE 1+ (NOT PRESENT)
[2023-05-20 10:07] LABS: FINE GRANULAR CASTS,URINE 0-2 (NOT PRESENT)
--- NOTE | 2023-05-20 11:14 | DI ---
EXAM: CHEST RADIOGRAPH (1 VIEW) TECHNIQUE: Frontal Chest Radiograph. HISTORY: Shortness of breath, aspiration COMPARISON: 05/16/[address] chest from 05/18/2023. FINDINGS: Lines, Tubes, Devices: None Lungs and Pleura: No focal consolidation. No pleural effusion. No pneumothorax. Cardiac silhouette: Stable. Bones: No acute abnormality. IMPRESSION: No acute radiographic abnormality.
[2023-05-20] MEDS: ATIVAN PO PRN (11:16)
[2023-05-20] MEDS: NICODERM 21 MG TD SCH (11:16)
[2023-05-20 16:29] LABS: BLOOD UREA NITROGEN 25.8 mg/dL (9-20); CALCIUM 8.43 mg/dL (8.4-10.2); CARBON DIOXIDE 24.2 mmol/L (22-30.0); CHLORIDE 99.4 mmol/L (98-107); CREATININE 0.71 mg/dL (0.60-1.10); GLUCOSE 138.7 mg/dL (74-106); POTASSIUM 3.11 mmol/L (3.5-5.1); SODIUM 135.2 mmol/L (134.5-145)
[2023-05-20] MEDS ORDERED: POTASSIUM CHL 10% ORAL SOL PO ONE (16:38)
[2023-05-20] MEDS ORDERED: POTASSIUM CHLORIDE 20 MEQ/100 ML PREMIX 20 MEQ/100 ML BAG IV ONE (16:38)
[2023-05-20 17:00] LABS: ABG O2 HGB 88.6 % (95-100); BEecf 6.6 (-2.0-3.0); COHb 1.3 (0.5-1.5); HCO3 29.1 (21-28); MetHb 0.6 (0-1.5); TCO2 30.1 (19-24); sO2 90.2 % (94-98); tHb 11.7 g/dl (11.7-17.4)
[2023-05-20 17:01] LABS: ABG PH 7.54 (7.35-7.45)
[2023-05-20] MEDS: LACTATED RINGERS 1,000 ML IV SCH (17:33)
[2023-05-20] MEDS: DECADRON IVP SCH (20:44)
[2023-05-20] MEDS: CRESTOR PO SCH (20:44)
[2023-05-20] MEDS: VEKLURY 100 MG in SODIUM CHLORIDE 100ML 100 ML IV SCH (20:45)
[2023-05-21] MEDS: DUONEB NEB SCH ×6 (02:00→23:29)
[2023-05-21 05:15] LABS: HEMATOCRIT 35.4 % (42.0-52.0); HEMOGLOBIN 11.7 g/dl (14.0-18.0); IMMATURE GRANULOCYTE % (AUTO) 0.7 % (0.0-5.0); LYMPHOCYTES # (AUTO) 0.2 K/uL (0.60-3.4); LYMPHOCYTES % (AUTO) 3.9 (10.0-50.0); MEAN CORPUSCULAR HEMOGLOBIN 28.6 pg (27.0-31.0); MEAN CORPUSCULAR HGB CONC 33.1 (31.8-35.4); MEAN CORPUSCULAR VOLUME 86.6 fl (80.0-94.0); MONOCYTES # (AUTO) 0.3 K/uL (0.4-2.0); MONOCYTES % (AUTO) 4.9 (0-10); NEUTROPHILS # (AUTO) 5.3 K/ul (2.0-6.9); NEUTROPHILS % (AUTO) 90.5 % (42.2-75.2); PLATELET COUNT 86 10^3/uL (140-440); RDW COEFFICIENT OF VARIATION 14.5 % (11.6-14.8); RED BLOOD COUNT 4.09 10^6/ul (4.70-6.10); WHITE BLOOD COUNT 5.88 K/ul (4.2-10.2)
[2023-05-21] MEDS: LACTATED RINGERS 1,000 ML IV SCH (05:33)
[2023-05-21 05:41] LABS: ALANINE AMINOTRANSFERASE 19.6 U/L (0-50); ALBUMIN 3.27 g/dL (3.5-5.0); ASPARTATE AMINO TRANSFERASE 36.4 U/L (17-59); BILIRUBIN,TOTAL 0.38 mg/dL (0.2-1.3); BLOOD UREA NITROGEN 23.5 mg/dL (9-20); CALCIUM 8.15 mg/dL (8.4-10.2); CARBON DIOXIDE 25.9 mmol/L (22-30.0); CHLORIDE 100.1 mmol/L (98-107); CREATININE 0.69 mg/dL (0.60-1.10); GLUCOSE 188.4 mg/dL (74-106); POTASSIUM 3.15 mmol/L (3.5-5.1); SODIUM 134.3 mmol/L (134.5-145); TOTAL PROTEIN 5.59 g/dL (6.3-8.2)
[2023-05-21] MEDS: TYLENOL PO PRN (08:08)
[2023-05-21] MEDS: NORVASC PO SCH (08:09)
[2023-05-21] MEDS: ALDACTONE PO SCH (08:09)
[2023-05-21] MEDS: PLAVIX PO SCH (08:10)
[2023-05-21] MEDS: NICODERM 21 MG TD SCH (08:11)
[2023-05-21] MEDS: COZAAR PO SCH (08:11)
[2023-05-21] MEDS ORDERED: POTASSIUM CHLORIDE 20 MEQ/100 ML PREMIX 20 MEQ/100 ML BAG IV ONE (08:14)
[2023-05-21] MEDS ORDERED: POTASSIUM CHL 10% ORAL SOL PO ONE (08:14)
[2023-05-21] MEDS: LOPRESSOR PO SCH ×2 (08:22→20:06)
[2023-05-21] MEDS ORDERED: TORADOL IVP ONE (08:58)
--- NOTE | 2023-05-21 09:01 | PCM.PROG ---
Date/Time Seen Date Seen by Provider: 05/21/23 Time Seen by Provider: 08:50 Provider Provider: CHIKA OBRIEN, [facility] Chief Complaint Chief Complaint: COVID W/HYPOXIA Subjective Subjective: Continues to complain of muscle aches. No events overnight. Requiring 3L NC at this time. States he feels his breathing is okay. Speech eval completed yesterday due to aspiration. Mechanical soft diet ordered with no straws. Objective Appearance: Positive No Apparent Distress, Alert and Oriented x3, Ill-Appearing and Thin Chest/Lungs: Positive Symmetrical With Equal Breath Sounds, Clear to Auscultation Bilaterally and Good Air Movement all 4 Lung Rose Heart: Positive RRR and Pulses Normal GI/: Positive Soft, Nontender, Bowel Sounds Normal, No Distention and No Organomegaly Musculoskeletal: Positive Not Examined Neurological: Positive Sensation Intact, Motor intact, Reflexes Intact, Alert and Oriented Additional Findings: Generalized weakness Vital Signs Vital Signs: Vital Signs: Last 24 Hours 05/20/23 09:35 05/20/23 09:40 05/20/23 13:00 Temperature Temperature Source Pulse Rate Respiratory Rate Blood Pressure Blood Pressure Mean Blood Pressure Location Blood Pressure Position O2 Sat by Pulse Oximetry 93 L Oxygen Delivery Method Nasal Cannula Nasal Cannula Oxygen Flow Rate 2 2 Telemetry Type Bedside Monitor Telemetry Monitoring Irregular Telemetry Rate (Approximate) 40-50 BPM Telemetry Heart Rate 54 L Telemetry SPO2 93 EKG QRS Interval 0.09 Telemetry Strip Reading Bradycardic A- Flutter w/PVCs 05/20/23 13:54 05/20/23 14:00 05/20/23 17:10 Temperature 97 F L Temperature Source Oral Pulse Rate 57 L Respiratory Rate 17 Blood Pressure 119/58 L Blood Pressure Mean 78 Blood Pressure Location Right Arm Blood Pressure Position Supine O2 Sat by Pulse Oximetry 94 L 94 L 93 L Oxygen Delivery Method Nasal Cannula Nasal Cannula Nasal Cannula Oxygen Flow Rate 2 2 4 Telemetry Type Telemetry Monitoring Irregular Telemetry Rate (Approximate) Telemetry Heart Rate Telemetry SPO2 EKG QRS Interval Telemetry Strip Reading 05/20/23 18:00 05/20/23 19:00 05/20/23 19:43 Temperature Temperature Source Pulse Rate 68 Respiratory Rate 21 H 19 Blood Pressure 123/77 Blood Pressure Mean 92 Blood Pressure Location Right Arm Blood Pressure Position Supine O2 Sat by Pulse Oximetry 93 L Oxygen Delivery Method Nasal Cannula Nasal Cannula Oxygen Flow Rate 4 4 Telemetry Type Bedside Monitor Telemetry Monitoring Continues Irregular Telemetry Rate (Approximate) Telemetry Heart Rate 62 Telemetry SPO2 91 L EKG QRS Interval 0.09 Telemetry Strip Reading AFIB 05/20/23 19:47 05/20/23 22:00 05/21/23 01:00 Temperature 97.6 F Temperature Source Oral Pulse Rate 62 Respiratory Rate 19 Blood Pressure 111/66 Blood Pressure Mean 81 Blood Pressure Location Right Arm Blood Pressure Position Supine O2 Sat by Pulse Oximetry 92 L 93 L Oxygen Delivery Method Nasal Cannula Nasal Cannula Oxygen Flow Rate 4 4 Telemetry Type Bedside Monitor Telemetry Monitoring Continues Irregular Telemetry Rate (Approximate) 50-60 BPM Telemetry Heart Rate Telemetry SPO2 98 EKG QRS Interval 0.07 Telemetry Strip Reading A-FIB/FLUTTER 05/21/23 02:00 05/21/23 04:53 05/21/23 05:02 Temperature 97.6 F Temperature Source Oral Pulse Rate 63 58 L Respiratory Rate 18 15 Blood Pressure 110/59 L 137/69 Blood Pressure Mean 76 91 Blood Pressure Location Right Arm Right Arm Blood Pressure Position Supine Supine O2 Sat by Pulse Oximetry 95 95 95 Oxygen Delivery Method Nasal Cannula Nasal Cannula Nasal Cannula Oxygen Flow Rate 4 4 4 Telemetry Type Telemetry Monitoring Irregular Telemetry Rate (Approximate) Telemetry Heart Rate Telemetry SPO2 EKG QRS Interval Telemetry Strip Reading 05/21/23 07:00 05/21/23 08:00 Temperature Temperature Source Pulse Rate Respiratory Rate 18 Blood Pressure Blood Pressure Mean Blood Pressure Location Blood Pressure Position O2 Sat by Pulse Oximetry Oxygen Delivery Method Nasal Cannula Oxygen Flow Rate 3 Telemetry Type Bedside Monitor Telemetry Monitoring Continues Irregular Telemetry Rate (Approximate) 50-60 BPM Telemetry Heart Rate Telemetry SPO2 EKG QRS Interval 0.10 Telemetry Strip Reading Afib Lab Results Lab Results: Lab Results: Last 24 Hours 05/21/23 05/20/23 05/20/23 05:10 16:39 16:07 WBC 5.88 RBC 4.09 L Hgb 11.7 L Hct 35.4 L MCV 86.6 MCH 28.6 MCHC 33.1 RDW Coeff of Elsa 14.5 Plt Count 86 L Immature Gran % (Auto) 0.7 Neut % (Auto) 90.5 H Lymph % (Auto) 3.9 L [place] % (Auto) 4.9 Eos % (Auto) 0.0 Baso % (Auto) 0.0 Neut # (Auto) 5.3 Lymph # (Auto) 0.2 L [place] # (Auto) 0.3 L Eos # (Auto) 0.0 Baso # (Auto) 0.0 Immature Gran # (Auto) 0.0 PT 11.0 INR 1.06 Puncture Site Lbrach Base Excess 6.6 H O2 Saturation 90.2 L ABG pH 7.54 H* ABG pCO2 34.0 L ABG pO2 51.0 L* ABG HCO3 29.1 H ABG Total CO2 30.1 H Hemoglobin 0.6 Oxyhemoglobin 88.6 L Carboxyhemoglobin 1.3 Total Hemoglobin 11.7 O2 Delivery Device Cannula Oxygen Liter Flow 2.00 Sodium 134.3 L 135.2 Potassium 3.15 L 3.11 L Chloride 100.1 99.4 Carbon Dioxide 25.9 24.2 Anion Gap 11.45 14.71 BUN 23.5 H 25.8 H Creatinine 0.69 0.71 Estimated GFR (MDRD) 108.00 105.00 BUN/Creatinine Ratio 34.05 36.33 Glucose 188.4 H 138.7 H Calcium 8.15 L 8.43 Total Bilirubin 0.38 AST 36.4 ALT 19.6 Alkaline Phosphatase 82.0 Total Protein 5.59 L Albumin 3.27 L Globulin 2.32 Albumin/Globulin Ratio 1.40 Urine Color Urine Clarity Urine pH Ur Specific [place] Urine Protein Urine Glucose (UA) Urine Ketones Urine Blood Urine Nitrite Urine Bilirubin Urine Urobilinogen Ur Leukocyte Esterase Urine Microscopic RBC Ur Squamous Epith Cells Ur Renal Epithelial Cell Urine Bacteria Granular Casts Fine Granular Casts 05/20/23 09:22 WBC RBC Hgb Hct MCV MCH MCHC RDW Coeff of Elsa Plt Count Immature Gran % (Auto) Neut % (Auto) Lymph % (Auto) [place] % (Auto) Eos % (Auto) Baso % (Auto) Neut # (Auto) Lymph # (Auto) [place] # (Auto) Eos # (Auto) Baso # (Auto) Immature Gran # (Auto) PT INR Puncture Site Base Excess O2 Saturation ABG pH ABG pCO2 ABG pO2 ABG HCO3 ABG Total CO2 Hemoglobin Oxyhemoglobin Carboxyhemoglobin Total Hemoglobin O2 Delivery Device Oxygen Liter Flow Sodium Potassium Chloride Carbon Dioxide Anion Gap BUN Creatinine Estimated GFR (MDRD) BUN/Creatinine Ratio Glucose Calcium Total Bilirubin AST ALT Alkaline Phosphatase Total Protein Albumin Globulin Albumin/Globulin Ratio Urine Color Yellow Urine Clarity Clear Urine pH 6.5 Ur Specific [place] 1.025 Urine Protein 3+ H Urine Glucose (UA) Negative Urine Ketones 1+ H Urine Blood 2+ H Urine Nitrite Negative Urine Bilirubin Negative Urine Urobilinogen 0.2 Ur Leukocyte Esterase Negative Urine Microscopic RBC 5-10 Ur Squamous Epith Cells Not present Ur Renal Epithelial Cell 2-5 Urine Bacteria 1+ Granular Casts 2-5 Fine Granular Casts 0-2 Additional Comments Additional Comments: I have independently reviewed and interpreted the labs/EKGs/imaging ordered during this hospital stay. I have reviewed outside records that are available in our EMR that pertain to medical stay including imaging/notes/labs from previous visits. Active Medications Active Medications: Medications Generic Name Dose Route Start Last Admin Trade Name Freq PRN Reason Stop Dose Admin Acetaminophen 650 mg 05/18/23 19:16 05/21/23 08:08 Acetaminophen 325 Mg Tablet PO 650 mg Q4H PRN Administration Mild Pain Albuterol Sulfate 2.5 mg 05/18/23 19:16 Albuterol Sulfate 0.083% Vial.Neb NEB RTQ4H PRN Wheezing Albuterol/Ipratropium 3 ml 05/18/23 22:00 05/21/23 05:10 Ipratropium/Albuterol Vial.Neb NEB 3 ml RTQ4H SHIRLENE Administration Amlodipine Besylate 5 mg 05/21/23 09:00 05/21/23 08:09 Amlodipine Besylate 5 Mg Tablet PO 5 mg DAILY SHIRLENE Administration Clopidogrel Bisulfate 75 mg 05/19/23 09:00 05/21/23 08:10 Clopidogrel Bisulfate 75 Mg Tablet PO 75 mg DAILY SHIRLENE Administration Cyclobenzaprine HCl 10 mg 05/18/23 20:12 05/20/23 16:27 Cyclobenzaprine Hcl 10 Mg Tablet PO 10 mg BID PRN Administration Spasms Dexamethasone Sodium Phosphate 6 mg 05/19/23 21:00 05/20/23 20:44 Dexamethasone Sod Phos 10 Mg/Ml Inj IVP 6 mg BEDTIME SHIRLENE Administration Remdesivir 100 mg/ Sodium 100 mls @ 200 mls/hr 05/19/23 21:00 05/20/23 20:45 Chloride IV 05/22/23 21:29 200 mls/hr BEDTIME SHIRLENE Administration Potassium Chloride 20 meq in 100 mls @ 50 mls/hr 05/21/23 08:14 05/21/23 08:30 Potassium Chloride 20 Meq/100 Ml Premix IV 05/21/23 10:13 50 mls/hr ONCE ONE Administration Ketorolac Tromethamine 15 mg 05/21/23 08:58 Ketorolac Tromethamine 15 Mg/Ml Vial IVP 05/21/23 08:59 ONCE ONE Lorazepam 0.5 mg 05/20/23 10:40 05/20/23 11:16 Lorazepam 0.5 Mg Tablet PO 0.5 mg TID PRN Administration Anxiety Losartan Potassium 100 mg 05/19/23 09:00 05/21/23 08:11 Losartan Potassium 100 Mg Tablet PO 100 mg DAILY SHIRLENE Administration Metoprolol Tartrate 50 mg 05/18/23 21:00 05/21/23 08:22 Metoprolol Tartrate 50 Mg Tablet PO Not Given BID SHIRLENE Nicotine 1 patch 05/20/23 10:25 05/21/23 08:11 Nicotine 21 Mg Patch.Td24 TD 1 patch DAILY SHIRLENE Administration Nystatin 1 applic 05/20/23 09:37 05/20/23 20:45 Nystatin 15 Gm Cream TP 1 applic TID PRN Administration Topical to broken skin Rosuvastatin Calcium 10 mg 05/18/23 21:00 05/20/23 20:44 Rosuvastatin Calcium 10 Mg Tablet PO 10 mg BEDTIME SHIRLENE Administration Spironolactone 12.5 mg 05/19/23 09:00 05/21/23 08:09 Spironolactone 25 Mg Tablet PO 12.5 mg DAILY SHIRLENE Administration Plan Plan: 1. Acute Hypoxic Respiratory Failure in setting of Covid-19 - wean O2 as tolerated, nebs, steroids 2. Covid-19 - remdesivir, steroids daily, nebs 3. Metabolic Acidosis - Resolved, monitor 4. Aspiration - Speech eval completed. Recommended mech soft and no straws. Chest x-ray clear 5. Thrombocytopenia - secondary to Covid-19, hold anticoag if platelets become<50, monitor 6. Leukopenia - Resolved, secondary to Covid-19, monitor 7. COPD - chronic, stable, monitor 8. CKD - at baseline, monitor 9. Hypertension - chronic, continue home medications 10. Weakness/Poor Home conditions - concern for safe discharge, family requesting long term placement. long-term requesting 7 day isolation. Review Statement Review Statement: I have personally discussed and reviewed the patient's visit/currently labs/imaging/decision making with Dr. Clarke, my supervising attending. Greater that 50 minutes spent with patient, 50% of the time spent with this patient was devoted to counseling and coordination of care.
[2023-05-21] MEDS: FLEXERIL PO PRN (11:39)
[2023-05-21] MEDS: CRESTOR PO SCH (20:38)
[2023-05-21] MEDS: VEKLURY 100 MG in SODIUM CHLORIDE 100ML 100 ML IV SCH (20:38)
[2023-05-21] MEDS: ATIVAN PO PRN (20:38)
[2023-05-21] MEDS: DECADRON IVP SCH (22:00)
[2023-05-22] MEDS: DUONEB NEB SCH ×3 (02:00→10:59)
[2023-05-22 05:29] LABS: HEMATOCRIT 35.3 % (42.0-52.0); HEMOGLOBIN 11.4 g/dl (14.0-18.0); IMMATURE GRANULOCYTE % (AUTO) 0.5 % (0.0-5.0); LYMPHOCYTES # (AUTO) 0.2 K/uL (0.60-3.4); LYMPHOCYTES % (AUTO) 5.4 (10.0-50.0); MEAN CORPUSCULAR HEMOGLOBIN 28.4 pg (27.0-31.0); MEAN CORPUSCULAR HGB CONC 32.3 (31.8-35.4); MONOCYTES # (AUTO) 0.2 K/uL (0.4-2.0); MONOCYTES % (AUTO) 4.9 (0-10); NEUTROPHILS # (AUTO) 3.6 K/ul (2.0-6.9); NEUTROPHILS % (AUTO) 89.2 % (42.2-75.2); PLATELET COUNT 89 10^3/uL (140-440); RDW COEFFICIENT OF VARIATION 14.6 % (11.6-14.8); RED BLOOD COUNT 4.01 10^6/ul (4.70-6.10); WHITE BLOOD COUNT 4.07 K/ul (4.2-10.2)
[2023-05-22 05:45] LABS: ALANINE AMINOTRANSFERASE 21.2 U/L (0-50); ALBUMIN 3.12 g/dL (3.5-5.0); ALKALINE PHOSPHATASE 73.4 U/L (56-119); ASPARTATE AMINO TRANSFERASE 28.7 U/L (17-59); BILIRUBIN,TOTAL 0.46 mg/dL (0.2-1.3); BLOOD UREA NITROGEN 24.3 mg/dL (9-20); CALCIUM 7.94 mg/dL (8.4-10.2); CARBON DIOXIDE 25.5 mmol/L (22-30.0); CHLORIDE 102.7 mmol/L (98-107); CREATININE 0.71 mg/dL (0.60-1.10); GLUCOSE 170.7 mg/dL (74-106); POTASSIUM 4.27 mmol/L (3.5-5.1); SODIUM 132.8 mmol/L (134.5-145); TOTAL PROTEIN 5.46 g/dL (6.3-8.2)
[2023-05-22 07:44] VITALS: RESP 17
[2023-05-22] MEDS: NORVASC PO SCH (08:20)
[2023-05-22] MEDS: ALDACTONE PO SCH (08:20)
[2023-05-22] MEDS: COZAAR PO SCH (08:20)
[2023-05-22] MEDS: FLEXERIL PO PRN (08:20)
[2023-05-22] MEDS: PLAVIX PO SCH (08:21)
[2023-05-22] MEDS: NICODERM 21 MG TD SCH (08:22)
[2023-05-22] MEDS: LOPRESSOR PO SCH (08:32)
--- NOTE | 2023-05-22 09:01 | DCSUM ---
Admission Date Admission Date: 05/18/23 Discharge Date Discharge Date: 05/22/23 Admission Diagnosis Admission Diagnosis: 1. Acute Hypoxic Respiratory Failure in setting of Covid-19 2. Covid-19 3. Metabolic Acidosis 4. Thrombocytopenia 5. Leukopenia 6. COPD 7. CKD 8. Hypertension 9. Weakness/Poor Home conditions Discharge Diagnosis Discharge Diagnosis: 1. Acute Hypoxic Respiratory Failure in setting of Covid-19 - Improving, stable 2. Covid-19 - Improving, stable 3. Metabolic Acidosis - Resolved 4. Aspiration - Addressed 5. Thrombocytopenia - Improving, stable 6. Leukopenia - Resolved 7. COPD - Chronic, stable 8. CKD - Chronic, stable 9. Hypertension - Chronic, stable 10. Weakness - Stable Hospital Provider Hospital Provider[facility] Physician Primary Care Physician: BRANDI BECKER MD Summary of History and Physical Summary of History and Physical: 88 yo presented to the ER with complaints of weakness and body aches. Patient reports that he had his meals on wheels delivered on of last week and found out that on Wednesday the route delivery manager has Covid. States he started having symptoms on that evening. He was seen in the ER on Tuesday 05/16. Diagnosed with covid and sent home on paxlovid. States he has continued to have chills and body aches. Lives at home alone and has been weak as well. Denies any congestion or shortness of breath. He is a 2 ppd smoker. On arrival to ER, O2 sat was 92-93% on RA. Abg was obtained and showed low PO2. He was placed on 2L and has tolerated well. Per nursing staff he is moderate assistance with 2 at this time. Hospital Course Subjective: During course of stay, patient has been receiving remdesivir, steroids, and nebs for treatment of Covid-19. His O2 was initially was dropping to low 90s in the ER. He was placed on 2L and remained stable until patient had 2 aspiration episodes. Began to require 3L after that. Chest x-ray obtained and no aspiration pneumonia present and WBC count remaining stable. Speech eval was completed and diet was changed to mechanical soft and no straws. Thrombocytopenia present throughout stay and improving. Initially was leukopenic but improved. Patient was not producing much urine output at beginning of stay. Patient was found to have foreskin of penis that had adhered. Nursing staff inserted torres catheter and nystatin has been placed around adhesions. Torres catheter removed today. All home medications continued. Started patient on ativan for anxiety and flexeril for muscle spasms. Appearance: Pleasant, No Apparent Distress and Alert HEENT: MMM and Supple CVS: No Murmur Abdomen: Soft, Non-Tender and No Distention Respiratory: No Dyspnea Extremities: No Edema Vital Signs: Most Recent Vital Signs Temperature 97.3 F L 05/22/23 05:22 Temperature Source Oral 05/22/23 05:22 Temperature Source Infrared 05/18/23 16:29 Pulse Rate 66 05/22/23 05:22 Respiratory Rate 17 05/22/23 07:29 Blood Pressure 128/67 05/22/23 05:22 Blood Pressure Mean 87 05/22/23 05:22 Blood Pressure Right Arm 166/81 05/18/23 19:47 Blood Pressure Location Right Arm 05/22/23 05:22 Blood Pressure Position Supine 05/22/23 05:22 O2 Sat by Pulse Oximetry 95 05/22/23 05:23 Oxygen Delivery Method Nasal Cannula 05/22/23 07:29 Oxygen Flow Rate 2 05/22/23 07:29 Height 6 ft 05/18/23 19:47 Weight 137 lb 05/18/23 19:47 Telemetry Type Bedside Monitor 05/22/23 07:00 Telemetry Monitoring Continues 05/22/23 07:00 Irregular Telemetry Rate (Approximate) 70-80 BPM 05/22/23 07:00 Telemetry Heart Rate 63 05/21/23 13:00 Telemetry SPO2 96 05/22/23 07:00 EKG MI Interval 0.42 H 05/20/23 07:00 EKG QRS Interval 0.08 05/22/23 07:00 Telemetry Strip Reading afib/aflutter 05/22/23 07:00 Lab Results Last 24 Hours: 05/22/23 05:15 WBC 4.07 L RBC 4.01 L Hgb 11.4 L Hct 35.3 L MCV 88.0 MCH 28.4 MCHC 32.3 RDW Coeff of Elsa 14.6 Plt Count 89 L Immature Gran % (Auto) 0.5 Neut % (Auto) 89.2 H Lymph % (Auto) 5.4 L [place] % (Auto) 4.9 Eos % (Auto) 0.0 Baso % (Auto) 0.0 Neut # (Auto) 3.6 Lymph # (Auto) 0.2 L [place] # (Auto) 0.2 L Eos # (Auto) 0.0 Baso # (Auto) 0.0 Immature Gran # (Auto) 0.0 PT 11.0 INR 1.06 Sodium 132.8 L Potassium 4.27 Chloride 102.7 Carbon Dioxide 25.5 Anion Gap 8.87 BUN 24.3 H Creatinine 0.71 Estimated GFR (MDRD) 105.00 BUN/Creatinine Ratio 34.22 Glucose 170.7 H Calcium 7.94 L Total Bilirubin 0.46 AST 28.7 ALT 21.2 Alkaline Phosphatase 73.4 Total Protein 5.46 L Albumin 3.12 L Globulin 2.34 Albumin/Globulin Ratio 1.33 Discharge Instructions Discharge Planning: Discharge Planning > 40 minutes If patient is discharged with left ventricular systolic dysfunction: NA Discharged with a beta lori? [] If no, why not? [] Discharged with an vicky/arb? [] If no, why not? [] DX: ACUTE HYPOXIC RESPIRATORY FAILURE SECONDARY TO COVID, COVID-19 RX: ATIVAN, ALBUTEROL, NYSTATIN MECHANICAL SOFT DIET, NO STRAWS ACTIVITY TOLERATED Discharge Medications: Medications at Discharge (Home Meds & RX) acetaminophen 500 mg tablet 500 mg PO QID PRN headache 30 days #60 tab-caps 10/30/20 epinephrine 0.3 mg/0.3 mL injection, auto-injector (EpiPen) 0.3 mg (0.3 mL) IM ONCE #1 ea 05/07/22 amlodipine 5 mg tablet 5 mg PO BID 90 days #180 tab-caps 06/15/22 losartan 100 mg tablet 100 mg PO DAILY #90 tabs 06/15/22 metoprolol tartrate 50 mg tablet 50 mg PO BID 90 days #180 tab-caps 06/15/22 spironolactone 25 mg tablet 12.5 mg (1/2 x 25 mg) PO QDAY #90 tabs 07/23/22 Vascepa 1 gram capsule (icosapent ethyl) See Rx Instructions .Route .COMPLEX #120 caps 10/21/22 rosuvastatin 10 mg tablet (Crestor) 10 mg PO BEDTIME 90 days #90 tab-caps 02/18/23 clopidogrel 75 mg tablet 75 mg PO DAILY 90 days #90 tab-caps 03/17/23 Discharge Plan Discharge Discharge Orders: Discharge Patient (ONCE); Ordered 05/22/23 Ordered By: MT CLEMENTE Activity Restrictions/Additional Instructions: Diet: Mechanical soft, no straws Aspiration risk Oxygen 2-3Lpm via NC Activity as tolerated PT/OT Follow-up with PCP next week Medications: albuterol nebs Q4H prn lorazepam 0.5 mg TID prn nystatin TID prn to penile wounds Instructions: COVID-19 (Coronavirus Disease 2019) (GEN) Patient Disposition: TRANSFER SNF Prescriptions: New acetaminophen 325 mg Tablet 650 mg PO Q4H PRN (Reason: fever or pain) Qty: 60 0RF albuterol sulfate 2.5 mg /3 mL (0.083 %) Solution For Nebulization 2.5 mg NEB RTQ4H PRN (Reason: shortness of breath or wheezing) Qty: 100 0RF lorazepam 0.5 mg Tablet 0.5 mg PO TID PRN (Reason: anxiety) Qty: 30 0RF nystatin 100,000 unit/gram Cream 1 applic topical TID PRN (Reason: wound healing) Qty: 1 0RF Continued acetaminophen 500 mg tablet 500 mg PO QID PRN (Reason: headache) 30 Days Qty: 60 epinephrine [EpiPen] 0.3 mg/0.3 mL auto-injector 0.3 mg IM ONCE Qty: 1 1RF Rx Instructions: as a single dose spironolactone 25 mg tablet 12.5 mg PO QDAY Qty: 90 1RF icosapent ethyl [Vascepa] 1 gram capsule See Rx Instructions .ROUTE .COMPLEX Qty: 120 5RF Dose Instruction: TAKE TWO CAPSULES TWICE A DAY NAME BRAND ONLY Rx Instructions: TAKE TWO CAPSULES TWICE A DAY NAME BRAND ONLY rosuvastatin [Crestor] 10 mg tablet 10 mg PO BEDTIME 90 Days Qty: 90 1RF clopidogrel 75 mg tablet 75 mg PO DAILY 90 Days Qty: 90 1RF amlodipine 5 mg tablet 5 mg PO BID 90 Days Qty: 180 5RF losartan 100 mg tablet 100 mg PO DAILY Qty: 90 2RF Rx Instructions: REPLACES LISINOPRIL metoprolol tartrate 50 mg tablet 50 mg PO BID 90 Days Qty: 180 5RF Did you review [place] INSPECT[employer] MACHINE [employer]S for ALL controlled substances?: No Discussed opioids are addictive and Narcan is available by prescription or from pharmacy.: No Condition: Good
[2023-05-22 10:16] VITALS: BP 124/70; PULSE 70; TEMP 98.1
[2023-05-22] MEDS: TYLENOL PO PRN (11:52)
== END 2023-05-22 13:32 | DRG 177 ==
LOC: ED 16:24 → SCU 16:24
PROVIDERS: ADMIT Hospitalist; ATTEND Nurse Practitioner Family
DX: E87.21 Acute metabolic acidosis; I10 Essential (primary) hypertension; U07.1 COVID-19; N18.9 Chronic kidney disease, unspecified; D72.819 Decreased white blood cell count, unspecified; D69.6 Thrombocytopenia, unspecified; J44.0 Chronic obstructive pulmonary disease with (acute) lower respiratory infection; F17.210 Nicotine dependence, cigarettes, uncomplicated; M79.10 Myalgia, unspecified site; Y84.4 Aspiration of fluid as the cause of abnormal reaction of the patient, or of later complication, without mention of misadventure at the time of the procedure; J96.01 Acute respiratory failure with hypoxia; R53.1 Weakness; R32 Unspecified urinary incontinence; F10.239 Alcohol dependence with withdrawal, unspecified; R30.0 Dysuria

== ENCOUNTER 2023-06-03 12:58 | Inpatient (IN) ==
[2023-06-03] MEDS: ATROPINE SULFATE PFS IVP ONE (13:16)
[2023-06-03 13:39] LABS: BASOPHILS % (AUTO) 0.3 % (0.0-3.0); EOSINOPHILS % (AUTO) 0.8 % (0.0-7.0); HEMATOCRIT 30.1 % (42.0-52.0); HEMOGLOBIN 10.1 g/dl (14.0-18.0); IMMATURE GRANULOCYTE % (AUTO) 0.3 % (0.0-5.0); LYMPHOCYTES # (AUTO) 0.5 K/uL (0.60-3.4); LYMPHOCYTES % (AUTO) 13.1 (10.0-50.0); MEAN CORPUSCULAR HEMOGLOBIN 28.9 pg (27.0-31.0); MEAN CORPUSCULAR HGB CONC 33.6 (31.8-35.4); MONOCYTES # (AUTO) 0.4 K/uL (0.4-2.0); NEUTROPHILS # (AUTO) 2.8 K/ul (2.0-6.9); NEUTROPHILS % (AUTO) 74.5 % (42.2-75.2); PLATELET COUNT 136 10^3/uL (140-440); RDW COEFFICIENT OF VARIATION 14.7 % (11.6-14.8); WHITE BLOOD COUNT 3.81 K/ul (4.2-10.2)
[2023-06-03 13:46] LABS: BILIRUBIN,URINE Negative (NEGATIVE); CLARITY,URINE Turbid (CLEAR); COLOR,URINE Yellow (YELLOW); GLUCOSE, URINE (UA) Negative (NEGATIVE); KETONES,URINE Negative (NEGATIVE); LEUKOCYTE ESTERASE ,URINE 1+ (NEGATIVE); NITRITE,URINE Negative (NEGATIVE); PROTEIN,URINE 2+ (NEGATIVE); URINE, BLOOD 3+ (NEGATIVE); UROBILINOGEN,URINE 0.2 (0.2)
[2023-06-03 13:54] LABS: ALANINE AMINOTRANSFERASE 33.9 U/L (0-50); ALBUMIN 2.78 g/dL (3.5-5.0); ALKALINE PHOSPHATASE 67.1 U/L (56-119); ASPARTATE AMINO TRANSFERASE 28.2 U/L (17-59); BILIRUBIN,TOTAL 0.66 mg/dL (0.2-1.3); CALCIUM 8.2 mg/dL (8.4-10.2); CARBON DIOXIDE 19.5 mmol/L (22-30.0); CHLORIDE 107.3 mmol/L (98-107); CREATINE KINASE 22.5 U/L (55-170); CREATININE 1.07 mg/dL (0.60-1.10); GLUCOSE 114.7 mg/dL (74-106); MAGNESIUM 2.24 mg/dL (1.6-2.3); POTASSIUM 4.17 mmol/L (3.5-5.1); SODIUM 131.2 mmol/L (134.5-145); TOTAL PROTEIN 5.34 g/dL (6.3-8.2)
[2023-06-03 13:56] LABS: AMPHETAMINE SCREEN,URINE NEGATIVE (NEGATIVE); BARBITURATE SCREEN,URINE NEGATIVE (NEGATIVE); BENZODIAZEPINES SCREEN,URINE POSITIVE (NEGATIVE); CANNABINOID SCREEN,URINE NEGATIVE (NEGATIVE); COCAIN SCREEN,URINE NEGATIVE (NEGATIVE); METHADONE URINE SCREEN NEGATIVE (NEGATIVE); METHAMPHETAMINES SCREEN,URINE NEGATIVE (NEGATIVE); OPIATE SCREEN,URINE NEGATIVE (NEGATIVE); OXYCODONE URINE SCREEN NEGATIVE (NEGATIVE); PHENCYCLIDINE SCREEN,URINE NEGATIVE (NEGATIVE); TRICYCLIC ANTIDEPRESSANTS URIN NEGATIVE (NEGATIVE)
[2023-06-03] MEDS: SODIUM CHLORIDE 500 ML IV ONE (13:58)
[2023-06-03 14:00] LABS: SQUAMOUS EPITHELIAL CELL,UR 20-30 (0-5); URINE WBC, MICROSCOPIC TNTC (0-2)
[2023-06-03 14:01] LABS: AMORPHOUS SEDIMENT,UR 1+ (NOT PRESENT); BACTERIA,URINE 1+ (NOT PRESENT); MOLECULAR FLU A NEGATIVE BY NAAT (NEGATIVE); MOLECULAR FLU B NEGATIVE BY NAAT (NEGATIVE); RENAL EPITHELIAL CELLS,URINE 0-2 (NOT PRESENT); RSV MOLECULAR NEGATIVE BY NAAT (NEGATIVE); SARS COV-2 RNA RAPID NAAT POSITIVE (NEGATIVE)
[2023-06-03 14:04] LABS: ACETAMINOPHEN < 10.0 ug/ml (10-30); SALICYLATE < 1.00 mg/dL (0-20.0)
[2023-06-03 14:05] LABS: TROPONIN I 0.017 ng/ml (0.0000-0.120)
[2023-06-03 14:21] LABS: ABG O2 HGB 95.9 % (95-100); ABG PH 7.49 (7.35-7.45); BEecf -3.5 (-2.0-3.0); COHb 1.4 (0.5-1.5); HCO3 19.8 (21-28); MetHb 1.1 (0-1.5); TCO2 20.6 (19-24); tHb 10.5 g/dl (11.7-17.4)
[2023-06-03 14:24] LABS: THYROID STIMULATING HORMONE 5.4 uIU/L (0.465-4.68)
--- NOTE | 2023-06-03 14:42 | ED.PDOC ---
General ED Provider: Dr. ROGER UP DO Chief Complaint: Non-specific Complaint Stated Complaint: Patient is a 69 yo M here for abnormal vital signs at SNF patient arrives afebrile and vitally stable by EMS EMS reports SNF RN could not provide hx Patient appears tired, low HR 38 and BP 120/54 Patient following commands but appears tired Patient improved with bedside atropine HR sustained 80's Poison control agrees with extensive work up and 12+ hour obs Exam shows no gross trauma Patient is on amlodipine and metropolol and lorazepam Patient improveing with care Time Seen by Provider: 06/03/23 13:06 Information Source: Patient Primary Care Provider: BRANDI BECKER MD Nursing and Triage Documentation Reviewed and Agree: Yes What is Opioid Naive?: *Opioid Naive implies the patient is not already taking opioids or not chronically receiving opioids on a daily basis. *PRN dosing is not "usually" associated with tolerance. *Patients are at higher risk of over-sedation and aspiration. What is Opioid Tolerant?: *Opioid Tolerance implies less than the expected response to an opioid. *Acquired tolerance is defined by the patient taking 60mg of oral morphine daily (or equianalgesic dose of another opioid) for 1 week or more. *Often associated with chronic pain. *May take more than usual dose to achieve desired pain control. 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 Ambulated w/ cane in left hand. I63.9 - Cerebral infarction, unspecified (ICD-10) Nephropathy hypertensive Dr. Anderson routine f/u 03/30/17, fatigue, malaise, weakness, I12.9 - Hypertensive chronic kidney disease with stage 1 through stage 4 chronic kidney disease, or unspecified chronic kidney disease (ICD-10) Cerebrovascular accident I63.9 - Cerebral infarction, unspecified (ICD-10) Peripheral vascular disease I73.9 - Peripheral vascular disease, unspecified (ICD-10) Hyperlipidemia stopped crestor by DR. Anderson 08/2016. E78.5 - Hyperlipidemia, unspecified (ICD-10) Arthritis M19.90 - Unspecified osteoarthritis, unspecified site (ICD-10) AAA (abdominal aortic aneurysm) I71.4 - Abdominal aortic aneurysm, without rupture (ICD-10) Gout (09/24/16) Dr. Anderson. 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) Z95.1 - Presence of aortocoronary bypass graft (ICD-10) Physical Exam Physical Exam Appearance: Reports Well-appearing, Ill-appearing and Thin Ill-appearing: Not Applicable Pain Distress: Not Applicable Eyes: Reports DEDE and EOMI ENT: Reports Ears normal and Nose normal Neck: Supple Respiratory: Reports Airway patent and Breath sounds clear; Denies Crackles, Rhonchi or Wheezes Cardiovascular: Reports Bradycardia GI/: Reports Soft, Nontender and Other (torres in place) Musculoskeletal: Reports Normal strength and ROM intact Skin: Reports Warm and Dry Neurological: Reports Sensation intact and Motor intact Psychiatric: Reports Other Interpretation Radiology Interpretation Radiology Interpretation By: ED Physician Radiology Results: Negative Exam Interpreted: Other (L knee) Xray Comments: No gross fracture or dislocation Critical Care Note Critical Care Note Total Critical Care Time (mins): 35 Course Course 06/03/23 13:07 06/03/23 13:07 Orders, Labs, Meds: Lab Review 06/03/23 06/03/23 06/03/23 13:07 13:11 13:14 WBC 3.81 L RBC 3.50 L Hgb 10.1 L Hct 30.1 L MCV 86.0 MCH 28.9 MCHC 33.6 RDW Coeff of Elsa 14.7 Plt Count 136 L Immature Gran % (Auto) 0.3 Neut % (Auto) 74.5 Lymph % (Auto) 13.1 [place] % (Auto) 11.0 H Eos % (Auto) 0.8 Baso % (Auto) 0.3 Neut # (Auto) 2.8 Lymph # (Auto) 0.5 L [place] # (Auto) 0.4 Eos # (Auto) 0.0 Baso # (Auto) 0.0 Immature Gran # (Auto) 0.0 Puncture Site Rrad Base Excess -3.5 L O2 Saturation 99.0 H ABG pH 7.49 H ABG pCO2 26.0 L ABG pO2 122.0 H ABG HCO3 19.8 L ABG Total CO2 20.6 Evangelist Test Pos Hemoglobin 1.1 Oxyhemoglobin 95.9 Carboxyhemoglobin 1.4 Total Hemoglobin 10.5 L O2 Delivery Device Nc Oxygen Liter Flow 2.00 Sodium 131.2 L Potassium 4.17 Chloride 107.3 H Carbon Dioxide 19.5 L Anion Gap 8.57 BUN 36.0 H Creatinine 1.07 Estimated GFR (MDRD) 65.00 BUN/Creatinine Ratio 33.64 Glucose 114.7 H Lactic Acid 0.55 L Calcium 8.20 L Magnesium 2.24 Total Bilirubin 0.66 AST 28.2 ALT 33.9 Alkaline Phosphatase 67.1 Total Creatine Kinase 22.5 L Troponin I 0.017 Total Protein 5.34 L Albumin 2.78 L Globulin 2.56 Albumin/Globulin Ratio 1.08 TSH 5.400 H Free T4 1.33 Urine Color Urine Clarity Urine pH Ur Specific [place] Urine Protein Urine Glucose (UA) Urine Ketones Urine Blood Urine Nitrite Urine Bilirubin Urine Urobilinogen Ur Leukocyte Esterase Urine Microscopic RBC Urine Microscopic WBC Ur Squamous Epith Cells Ur Renal Epithelial Cell Amorphous Sediment Urine Bacteria Salicylate Level mg/dL Urine Opiates Screen Ur Oxycodone Screen Urine Methadone Screen Acetaminophen Ur Barbiturates Screen U Tricyclic Antidepress Ur Phencyclidine Scrn Ur Amphetamine Screen U Methamphetamines Scrn U Benzodiazepines Scrn Urine Cocaine Screen U Cannabinoids Screen Influ A Molecular Assay Influ B Molecular Assay RSV Antigen SARS CoV-2 RNA Rapid SHARLA 06/03/23 06/03/23 06/03/23 13:25 13:31 15:18 WBC RBC Hgb Hct MCV MCH MCHC RDW Coeff of Elsa Plt Count Immature Gran % (Auto) Neut % (Auto) Lymph % (Auto) [place] % (Auto) Eos % (Auto) Baso % (Auto) Neut # (Auto) Lymph # (Auto) [place] # (Auto) Eos # (Auto) Baso # (Auto) Immature Gran # (Auto) Puncture Site Base Excess O2 Saturation ABG pH ABG pCO2 ABG pO2 ABG HCO3 ABG Total CO2 Evangelist Test Hemoglobin Oxyhemoglobin Carboxyhemoglobin Total Hemoglobin O2 Delivery Device Oxygen Liter Flow Sodium Potassium Chloride Carbon Dioxide Anion Gap BUN Creatinine Estimated GFR (MDRD) BUN/Creatinine Ratio Glucose Lactic Acid Calcium Magnesium Total Bilirubin AST ALT Alkaline Phosphatase Total Creatine Kinase Troponin I 0.017 Total Protein Albumin Globulin Albumin/Globulin Ratio TSH Free T4 Urine Color Yellow Urine Clarity Turbid Urine pH 6.0 Ur Specific [place] 1.025 Urine Protein 2+ H Urine Glucose (UA) Negative Urine Ketones Negative Urine Blood 3+ H Urine Nitrite Negative Urine Bilirubin Negative Urine Urobilinogen 0.2 Ur Leukocyte Esterase 1+ H Urine Microscopic RBC 10-20 Urine Microscopic WBC Tntc Ur Squamous Epith Cells 20-30 Ur Renal Epithelial Cell 0-2 Amorphous Sediment 1+ Urine Bacteria 1+ Salicylate Level mg/dL < 1.00 Urine Opiates Screen Negative Ur Oxycodone Screen Negative Urine Methadone Screen Negative Acetaminophen < 10.0 L Ur Barbiturates Screen Negative U Tricyclic Antidepress Negative Ur Phencyclidine Scrn Negative Ur Amphetamine Screen Negative U Methamphetamines Scrn Negative U Benzodiazepines Scrn Positive H Urine Cocaine Screen Negative U Cannabinoids Screen Negative Influ A Molecular Assay Negative by naat Influ B Molecular Assay Negative by naat RSV Antigen Negative by naat SARS CoV-2 RNA Rapid SHARLA Positive H Orders Category Date Time Status ADMIT PATIENT INPATIENT .TO [facility] (MONITORED BED) ADMISSION 06/03/23 16:34 Active ABG DRAW REQUEST Stat CARDIO 06/03/23 13:07 Completed EKG-(ED ONLY) Stat CARDIO 06/03/23 13:07 Completed EKG-(ED ONLY) Stat CARDIO 06/03/23 14:19 Completed NPO REMINDER: IMAGING ONCE CARE 06/03/23 13:08 Completed ACCUCHECK (ED) [ED ACCUCHECK ASSESSMENT] .ONCE EMERGENCY 06/03/23 13:46 Active ABG COOX Stat LAB 06/03/23 13:14 Completed ACETAMINOPHEN Stat LAB 06/03/23 13:25 Completed ASPIRIN LEVEL [SALICYLATE] Stat LAB 06/03/23 13:25 Completed BLOOD CULTURE Stat LAB 06/03/23 16:11 Received CBC W/ AUTO DIFF Stat LAB 06/03/23 13:07 Completed COMPREHENSIVE METABOLIC PANEL Stat LAB 06/03/23 13:07 Completed CREATINE KINASE Stat LAB 06/03/23 13:07 Completed DRUG SCREEN (RAPID FOR ED) [DRUG SCREEN, URINE, RAPID] LAB 06/03/23 13:31 Completed Stat FLU A & B MOLECULAR [FLU A/B MOLECULAR] Stat LAB 06/03/23 13:31 Completed FREE T4 (FREE THYROXINE) Stat LAB 06/03/23 13:11 Completed LACTIC ACID Stat LAB 06/03/23 13:07 Completed MAGNESIUM Stat LAB 06/03/23 13:07 Completed RSV Stat LAB 06/03/23 13:31 Completed SARS COV-2 RNA RAPID SHARLA Stat LAB 06/03/23 13:31 Completed THYROID STIMULATING HORMONE Stat LAB 06/03/23 13:07 Completed TROPONIN I Stat LAB 06/03/23 13:07 Completed TROPONIN I Stat LAB 06/03/23 15:18 Completed UA [URINALYSIS C & S IF INDICATED] Stat LAB 06/03/23 13:31 Completed URINE CULTURE Routine LAB 06/03/23 13:15 Received Atropine Sulfate Inj [Atropine Sulfate Pfs] Meds 06/03/23 13:11 Discontinued 1 mg IVP ONCE ONE Azithromycin Inj [Zithromax] 500 mg Meds 06/03/23 15:50 Discontinued 0.9 % Sodium Chloride [Sodium Chloride] 250 ml IV ONCE Ceftriaxone/D5w 1 gm Premix [Rocephin 1 gm/50 ml D5w] Meds 06/03/23 14:30 Discontinued 1 gm in 50 ml IV ONCE Sodium Chloride 0.9% [Sodium Chloride] 500 ml Meds 06/03/23 13:[address] ABDOMEN/PELVIS W CONTRAST Stat RADS 06/03/23 13:[address] CHEST PE PROTOCOL Stat RADS 06/03/23 13:[address] HEAD W/O CONTRAST Stat RADS 06/03/23 13:07 Completed KNEE LEFT 3 VIWS Stat RADS 06/03/23 13:42 Completed Medications Generic Name Dose Route Start Last Admin Trade Name Freq PRN Reason Stop Dose Admin Acetaminophen 650 mg 06/03/23 16:54 Acetaminophen 325 Mg Tablet PO Q4H PRN Mild Pain CEFTRIAXONE/D5W 1 GM PREMIX 1 gm in 50 mls @ 75 mls/hr 06/04/23 09:00 Rocephin 1 Gm/50 Ml D5w IV 06/07/23 08:59 DAILY SHIRLENE Azithromycin 500 mg/ Sodium 250 mls @ 250 mls/hr 06/04/23 09:00 Chloride IV 06/07/23 08:59 DAILY SHIRLENE Sodium Chloride 1,000 mls @ 50 mls/hr 06/03/23 17:00 Sodium Chloride IV .Q20H SHIRLENE Ondansetron HCl 4 mg 06/03/23 16:54 Ondansetron Hcl/Pf 4 Mg/2 Ml Sdv IVP Q6H PRN Nausea / Vomiting Discontinued Medications Generic Name Dose Route Start Last Admin Trade Name Freq PRN Reason Stop Dose Admin Atropine Sulfate 1 mg 06/03/23 13:11 06/03/23 13:16 Atropine Sulfate Inj 1 Mg/10 Ml Disp.Syrin IVP 06/03/23 13:12 1 mg ONCE ONE Administration Sodium Chloride 500 mls @ 500 mls/hr 06/03/23 13:46 06/03/23 13:58 Sodium Chloride IV 06/03/23 14:45 500 mls/hr BOLUS ONE Administration CEFTRIAXONE/D5W 1 GM PREMIX 1 gm in 50 mls @ 100 mls/hr 06/03/23 14:30 06/03/23 15:13 Rocephin 1 Gm/50 Ml D5w IV 06/03/23 14:59 100 mls/hr ONCE ONE Administration Azithromycin 500 mg/ Sodium 250 mls @ 250 mls/hr 06/03/23 15:50 Chloride IV 06/03/23 16:49 ONCE ONE Vital Signs: Temp Pulse Resp BP Pulse Ox 06/03/23 13:07 98.2 F 42 L 20 101/54 L 100 EKG interpreted by me: 1: afib b rate 41 no stemi 2. afib rate 44 no stemi 3. afib rate 80 no stemi after atropine x1 4. afib rate 75 no stemi MDM: patient is a 88 yo M here for low heart rate 38 Patient bradycardic with stable blood pressure Hx from EMS chart review by me Exam concerning for lethargy and bradycardia, patietn awake and more alert after atropine x1 mg I consulted Hospitalist, CLINICAL APPEALS AUDITOR Walker and I agree with admission for BL Pneumonia (s/p recent covid), UTI and further monitoring 3+ labs and 3+ images reviewed by me WDX: AMS, antihypertensive overdose, bradycardia-resolved, UTI (torres associ), BL pneumonia without sepsis acute high complexity DDX: I considered withdrawal, shock, PE but these are less likely SDOH: Patient will have best chance to improve with IV abx and further care Patient improving with care plan Discharge Plan Discharge Patient Disposition: ADMITTED INPATIENT Discharge Problem: Overdose, Anemia, Pulmonary nodule, Pneumonia, Acute UTI, Leukopenia Did you review [place] [employer]ORY COMPLIANCE OFFICER for ALL controlled substances?: Not Applicable ED Provider: ROGER UP Condition: Fair Physician Progress Note: []
--- NOTE | 2023-06-03 15:00 | DI ---
EXAM: LEFT KNEE RADIOGRAPH TECHNIQUE: 3 views. Frontal, lateral, and patellar. HISTORY: Left knee pain. COMPARISON: 09/18/2022 FINDINGS: No focal soft tissue swelling. Resolution of the previously seen joint effusion. Moderate to severe arterial calcifications, again noted. Mild chondrocalcinosis of the medial and lateral compartments . Stable moderate enthesopathy of the patella upper and lower poles. No marginal osteophyte formati on. No visible fractures or dislocations. IMPRESSION: 1. No visible fractures. 2. Minimal CPPD arthropathy.
[2023-06-03] MEDS: ROCEPHIN 1 GM/50 ML D5W 1 GM/50 ML BAG IV ONE (15:13)
--- NOTE | 2023-06-03 15:31 | CT ---
EXAM: CT HEAD WITHOUT CONTRAST HISTORY: Altered mental status COMPARISON: CT head from 09/18/2022 TECHNIQUE: Multi-slice transaxial images are acquired through the head with 2-D reconstructed images . All CT scans are performed using dose optimization techniques as appropriate to the performed exam and includes at least one of the following: Automated exposure control, adjustment of the mA and/or kV according to size, and the use of iterative reconstruction technique. FINDINGS: The midline structures are central. The ventricles and sulci are prominent. Focal encepha lomalacia is suggested in the right frontal lobe periventricular white matter. The brain attenuation has a normal pichardo-white matter interface. There is low attenuation in the periventricular white mat ter. No acute intraparenchymal or extraaxial hemorrhage. The calvarium is intact. There are air-fluid levels in the maxillary sinuses. A few ethmoid air ce lls have thickened mucous membranes. The paranasal sinuses and mastoid air cells are otherwise clear . The nasal septum is chronically deviated leftward. IMPRESSION: 1. No acute intracranial process. 2. Small vessel disease and age related involution. 3. Maxillary sinusitis. . All CT scans are performed using dose optimization techniques as appropriate to the performed exam an d include at least one of the following: Automated exposure control, adjustment of the mA and/or kV according t o size, and the use of iterative reconstruction technique.
--- NOTE | 2023-06-03 15:45 | CT ---
EXAM: CHEST CTA WITH CONTRAST (PULMONARY ARTERY) HISTORY: Shortness of breath and cough. TECHNIQUE: CTA acquisition of the chest from the thoracic inlet to the upper abdomen following IV con trast administration timed to filling of the pulmonary artery. 3D/MIP/VR images were utilized. CT Dose Reduction Techniques Employed: Yes. COMPARISON: 05/18/2023 and 09/18/2022 FINDINGS: Adequate opacification of the pulmonary arteries. No pulmonary embolus is identified. No enlarged m ediastinal, hilar, or axillary nodes are identified. Several calcified mediastinal and hilar nodes, again noted, secondary to old granulomatous disease. Sternotomy and CABG, again noted. Stable cardi omegaly. No significant pericardial fluid/thickening. No pleural fluid. Suggestion of small hiatal hernia. Interval development of mild gaseous distension of the small air fluid level of the mid tho racic esophagus, suggesting either reflux or decreased esophageal motility. Moderate to severe bilat eral gynecomastia, about the same. Visualized portions of the upper abdomen included in this examination of the chest again show a 1.4 c m cyst of the partially visualized liver right lobe. 2.1 cm cyst of the partially visualized right k idney, stable. Lung window images again show mild to moderate emphysema. Mild bronchial wall thickening, about the same. Stable mild biapical pleural thickening. Interval development of consolidation of dependent a spects of both lower lobes, moderate on the left and mild on the right. 10 mm spiculated pulmonary n odule in the left upper lobe on image number 22, stable since August 2022. 5 mm pulmonary nodule in the right middle lobe on image number 73, 5 mm nodule in the right lower lobe on image number 67, and a smaller nodule in the right upper lobe on image number 28, also stable since August 2022. Calcified gra nuloma of the right lower lobe, again noted. No pneumothorax. Bone window images show no significant lytic or sclerotic bone lesions. 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 IMPRESSION: 1. No pulmonary embolus is identified. 2. Interval development of pneumonia of dependent aspects of both lower lobes, moderate on the left and mild on the right. 3. Stable mild cardiomegaly. 4. 10 mm spiculated pulmonary nodule in the left upper lobe and several 5 mm and smaller nodules on the right, stable since August 2022. If not already performed, PET scan is recommended for further evaluation. CT chest in 6 months is also recommended. All CT scans are performed using dose optimization techniques as appropriate to the performed exam an d include at least one of the following: Automated exposure control, adjustment of the mA and/or kV according t o size, and the use of iterative reconstruction technique.
--- NOTE | 2023-06-03 15:52 | CT ---
EXAM: CT ABDOMEN AND PELVIS WITH CONTRAST HISTORY: Abdominal pain. TECHNIQUE: CT acquisition of the abdomen and pelvis from the lower thorax through the pelvis followin g IV contrast administration. 2-D coronal and sagittal reformatted images were obtained from the axi al source images. CT Dose Reduction Techniques Performed: Yes. IV Contrast: Administered. Oral Contrast: None. COMPARISON: None. FINDINGS: Lung bases: Moderate consolidation in the left lower lobe and mild consolidation in the right lower l obe likely due to an infectious/inflammatory process. No sizable effusion. Coronary calcification. Liver: 1.6 cm cyst in the right lobe of the liver.. Mild old granulomatous disease. Mild periportal edema. Gallbladder and bile ducts: Cholelithiasis. The common bile duct measures 6.5 mm. Pancreas: 9 mm cyst in the uncinate process. No ductal dilatation or acute pancreatitis. Spleen: No splenomegaly. Old granulomatous disease. Adrenals: No mass. Right kidney: No stones or hydronephrosis. Cortical cysts. Left kidney: No stones or hydronephrosis. Cortical cysts. Bowel and mesentery: No obstruction or ileus. No mucosal thickening. Moderate stool in the colon. M ild gaseous distension of the transverse and sigmoid colon.. Mild fluid distension of small bowel lo ops without wall thickening. Appendix: No evidence for acute appendicitis. Peritoneal Cavity: No ascites. No free air. No fluid collection. Bladder: Molina catheter in the bladder. Moderate diffuse bladder wall thickening. Air density in th e bladder. Vasculature: Heavy aortic atherosclerotic calcifications. Infrarenal abdominal aortic aneurysm measu ring 5.7 x 5.0 cm, stable. Lymph Nodes: Scattered small nodes but no adenopathy. Soft Tissues: Small right scrotal hydrocele. Reproductive: Reproductive organs are within normal limits. Bones: Moderate spondylosis and degenerative disc disease. Moderate dextroscoliosis of the lumbar sp ine. There is degenerative change of the left hip. IMPRESSION: 1. Moderate consolidation of the left lower lobe and mild consolidation of the right lower lobe cons istent with an infectious/inflammatory process. 2. Mild periportal edema. 3. Cholelithiasis. The common bile duct measures 6.5 mm. 4. Findings consistent with constipation. Gaseous distension of the sigmoid colon and transverse co netta. Mild fluid distension of the small bowel may be due to ileus or enteritis. No wall thickening. 5. Diffuse bladder wall thickening. Molina catheter in place. Air density in the bladder. 6. Abdominal aortic aneurysm is stable measuring 5.7 cm. 7. Moderate spondylosis and degenerative disc disease. Scoliosis. All CT scans are performed using dose optimization techniques as appropriate to the performed exam an d include at least one of the following: Automated exposure control, adjustment of the mA and/or kV according t o size, and the use of iterative reconstruction technique.
[2023-06-03] MEDS ORDERED: ZOFRAN 4 MG/2 ML IVP PRN (16:54)
[2023-06-03 17:39] VITALS: BMI 19.0
[2023-06-03] MEDS ORDERED: ALBUTEROL 0.083% NEB NEB PRN (17:46)
[2023-06-03] MEDS: SODIUM CHLORIDE 1,000 ML IV SCH (18:40)
[2023-06-03] MEDS: ZITHROMAX 500 MG in SODIUM CHLORIDE 250 ML IV ONE (20:10)
[2023-06-03] MEDS: CRESTOR PO SCH (20:11)
[2023-06-03] MEDS: MELATONIN PO SCH (20:11)
[2023-06-04] MEDS: TYLENOL PO PRN (00:23)
[2023-06-04 05:25] LABS: BASOPHILS % (AUTO) 0.3 % (0.0-3.0); EOSINOPHILS % (AUTO) 0.6 % (0.0-7.0); HEMATOCRIT 27.4 % (42.0-52.0); HEMOGLOBIN 8.9 g/dl (14.0-18.0); IMMATURE GRANULOCYTE % (AUTO) 0.3 % (0.0-5.0); LYMPHOCYTES # (AUTO) 0.5 K/uL (0.60-3.4); LYMPHOCYTES % (AUTO) 14.7 (10.0-50.0); MEAN CORPUSCULAR HEMOGLOBIN 28.5 pg (27.0-31.0); MEAN CORPUSCULAR HGB CONC 32.5 (31.8-35.4); MEAN CORPUSCULAR VOLUME 87.8 fl (80.0-94.0); MONOCYTES # (AUTO) 0.4 K/uL (0.4-2.0); MONOCYTES % (AUTO) 11.9 (0-10); NEUTROPHILS # (AUTO) 2.3 K/ul (2.0-6.9); NEUTROPHILS % (AUTO) 72.2 % (42.2-75.2); PLATELET COUNT 121 10^3/uL (140-440); RDW COEFFICIENT OF VARIATION 14.7 % (11.6-14.8); RED BLOOD COUNT 3.12 10^6/ul (4.70-6.10); WHITE BLOOD COUNT 3.19 K/ul (4.2-10.2)
[2023-06-04 05:42] LABS: ALANINE AMINOTRANSFERASE 29.3 U/L (0-50); ALBUMIN 2.53 g/dL (3.5-5.0); ALKALINE PHOSPHATASE 61.1 U/L (56-119); ASPARTATE AMINO TRANSFERASE 25.7 U/L (17-59); BILIRUBIN,TOTAL 0.51 mg/dL (0.2-1.3); BLOOD UREA NITROGEN 28.3 mg/dL (9-20); CALCIUM 7.76 mg/dL (8.4-10.2); CARBON DIOXIDE 16.5 mmol/L (22-30.0); CREATININE 0.91 mg/dL (0.60-1.10); GLUCOSE 105.5 mg/dL (74-106); POTASSIUM 4.4 mmol/L (3.5-5.1); SODIUM 132.3 mmol/L (134.5-145); TOTAL PROTEIN 5.03 g/dL (6.3-8.2)
[2023-06-04 08:23] LABS: IRON 26.1 ug/dL (49-181)
[2023-06-04] MEDS: FLOMAX PO SCH (09:00)
[2023-06-04] MEDS: ROCEPHIN 1 GM/50 ML D5W 1 GM/50 ML BAG IV SCH (09:01)
[2023-06-04] MEDS: PLAVIX PO SCH (09:01)
[2023-06-04] MEDS: ZITHROMAX 500 MG in SODIUM CHLORIDE 250 ML IV SCH (09:48)
--- NOTE | 2023-06-04 11:36 | PCM ---
Date of Service Date Seen by Provider: 06/04/23 Time Seen by Provider: 09:30 Admit Day/Time Admission Date: 06/03/23 Reason for Admission Chief Complaint: AMS/OVERDOSE BL PNA AND UTI Hospital Provider Hospital Provider: CHIKA OBRIEN, [facility] (Formerly [facility])[3]ist Group Primary Care Physician Primary Care Physician: BRANDI BECKER MD History of Present Illness History of Present Illness: 88 yo male presented to ER from [facility] for altered mental status. ER provider reports that half-way reported that he was difficult to arouse. On arrival to the ER, patient's HR was found to be in upper 30s to low 40s. He was given atropine and HR increased to 70s-80s and became more awake. Unsure if cause was from benzos or metoprolol. Poison control was contacted in ER and recommended 12 hour observation. Closed case this am. Patient was found to have bilateral pneumonia and is requiring 2L of oxygen still at this time. He was recently admitted to this facility on 05/18 for Covid. He was given remdesivir, steroids, nebs, and required oxygen. Still requiring 2L at this time. He also was found to be in metabolic acidosis which was treated with bicarb gtt. WBC count still low and platelets trending down again. Concern for other viral syndrome vs cancer due to pancytopenia. Per Dr. Becker that follows patient at half-way. Patient is not ambulating at all. He was experiencing urinary retention approx. 1 week ago. Molina was an chored and UA sent. He was found to have proteus in the urine and was treated with course of Cipro. UA still concerning and reflexed to culture. No growth present at this time. Admitted for treatment of CAP and pancytopenia. Case Discussed With Case Discussed With: Patient's case was discussed with the ER Physicians, Dr. Plummer. 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 Ambulated w/ cane in left hand. I63.9 - Cerebral infarction, unspecified (ICD-10) Nephropathy hypertensive Dr. Anderson routine f/u 03/30/17, fatigue, malaise, weakness, I12.9 - Hypertensive chronic kidney disease with stage 1 through stage 4 chronic kidney disease, or unspecified chronic kidney disease (ICD-10) Cerebrovascular accident I63.9 - Cerebral infarction, unspecified (ICD-10) Peripheral vascular disease I73.9 - Peripheral vascular disease, unspecified (ICD-10) Hyperlipidemia stopped crestor by DR. Anderson 08/2016. E78.5 - Hyperlipidemia, unspecified (ICD-10) Arthritis M19.90 - Unspecified osteoarthritis, unspecified site (ICD-10) AAA (abdominal aortic aneurysm) I71.4 - Abdominal aortic aneurysm, without rupture (ICD-10) Gout (09/24/16) Dr. Anderson. 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) Z95.1 - Presence of aortocoronary bypass graft (ICD-10) Family History FATHER Cardiac disease Hypertension Mother , advanced age Cancer skin BROTHER Cardiac disease PATERNAL GRANDFATHER CVA (cerebral vascular accident) UNCLE CVA (cerebral vascular accident) Social History Smoking and tobacco status: Current every day smoker Allergies Allergies Allergy/AdvReac Type Severity Reaction Status Date / Time lisinopril AdvReac Severe Swelling Verified 05/16/23 15:15 Current Medications Home Medications epinephrine 0.3 mg/0.3 mL injection, auto-injector (EpiPen) 0.3 mg (0.3 mL) IM ONCE #1 ea 05/07/22 [Rx Confirmed 06/03/23 Last Taken Unknown] amlodipine 5 mg tablet 5 mg PO BID 90 days #180 tab-caps 06/15/22 [Rx Confirmed 06/03/23 Last Taken 05/18/23] losartan 100 mg tablet 100 mg PO DAILY #90 tabs 06/15/22 [Rx Confirmed 06/03/23 Last Taken 05/18/23] spironolactone 25 mg tablet 12.5 mg (1/2 x 25 mg) PO QDAY #90 tabs 07/23/22 [Rx Confirmed 06/03/23 Last Taken Unknown] Vascepa 1 gram capsule (icosapent ethyl) See Rx Instructions .Route .COMPLEX #120 caps 10/21/22 [Rx Confirmed 06/03/23 Last Taken 05/18/23 09:18] rosuvastatin 10 mg tablet (Crestor) 10 mg PO BEDTIME 90 days #90 tab-caps 02/18/23 [Rx Confirmed 06/03/23 Last Taken 05/17/23] clopidogrel 75 mg tablet 75 mg PO DAILY 90 days #90 tab-caps 03/17/23 [Rx Confirmed 06/03/23 Last Taken 05/18/23] nystatin 100,000 unit/gram topical cream 1 applic topical TID PRN wound healing #1 g 05/22/23 [Rx Confirmed 06/03/23 Last Taken Unknown] lorazepam 0.5 mg tablet 0.5 mg PO TID PRN anxiety #30 tabs 05/24/23 [Rx Confirmed 06/03/23 Last Taken Unknown] acetaminophen 325 mg tablet 650 mg PO Q6H PRN fever or pain 06/03/23 [History Confirmed 06/03/23 Last Taken Unknown] albuterol sulfate 2.5 mg/3 mL (0.083 %) solution for nebulization 2.5 mg NEB Q6H PRN shortness of breath or wheezing 06/03/23 [History Confirmed 06/03/23 Last Taken Unknown] ammonium lactate 5 % lotion 1 applic topical DAILY PRN dryness 06/03/23 [History Confirmed 06/03/23 Last Taken Unknown] ciprofloxacin HCl 500 mg tablet (Cipro) 500 mg PO BID 06/03/23 [History Confirmed 06/03/23 Last Taken Unknown] melatonin 5 mg capsule 5 mg PO BEDTIME 06/03/23 [History Confirmed 06/03/23 Last Taken Unknown] metoprolol tartrate 50 mg tablet 50 mg PO DAILY 06/03/23 [History Confirmed 06/03/23 Last Taken Unknown] tamsulosin 0.4 mg capsule (Flomax) 0.4 mg PO DAILY 06/03/23 [History Confirmed 06/03/23 Last Taken Unknown] Home Acetaminophen (Acetaminophen 325 Mg Tablet) 650 mg PO Q4H PRN PRN Reason: Mild Pain Last Admin: 06/04/23 00:23 Dose: 650 mg Hydrocodone Bitart/Acetaminophen (Hydrocodone Bit/Acetaminophen 5/325 Mg Tablet) 1 tab PO Q6HR PRN PRN Reason: Pain Albuterol Sulfate (Albuterol Sulfate 0.083% Vial.Neb) 2.5 mg NEB Q6H PRN PRN Reason: Wheezing Clopidogrel Bisulfate (Clopidogrel Bisulfate 75 Mg Tablet) 75 mg PO DAILY [facility] Last Admin: 06/04/23 09:01 Dose: 75 mg Ferrous Sulfate (Ferrous Sulfate 324 Mg Tablet.Dr) 324 mg PO BID [facility] CEFTRIAXONE/D5W 1 GM PREMIX (Rocephin 1 Gm/50 Ml D5w) 1 gm in 50 mls @ 75 m ls/hr IV DAILY [facility] Stop: 06/07/23 08:59 Last Admin: 06/04/23 09:01 Dose: 75 mls/hr Azithromycin 500 mg/ Sodium (Chloride) 250 mls @ 250 mls/hr IV DAILY [facility] Stop: 06/07/23 08:59 Last Admin: 06/04/23 09:48 Dose: 250 mls/hr Sodium Chloride (Sodium Chloride) 1,000 mls @ 50 mls/hr IV .Q20H [facility] Last Admin: 06/03/23 18:40 Dose: 50 mls/hr Melatonin (Melatonin 3 Mg Tablet) 6 mg PO BEDTIME [facility] Last Admin: 06/03/23 20:11 Dose: 6 mg Morphine Sulfate (Morphine Sulfate 2 Mg/Ml Syringe) 2 mg IVP Q4HR PRN PRN Reason: Pain Last Admin: 06/04/23 12:12 Dose: 2 mg Non-Formulary Medication (Icosapent Ethyl [Vascepa]) 2 gm PO BID [facility] Last Admin: 06/04/23 09:15 Dose: Not Given Ondansetron HCl (Ondansetron Hcl/Pf 4 Mg/2 Ml Sdv) 4 mg IVP Q6H PRN PRN Reason: Nausea / Vomiting Rosuvastatin Calcium (Rosuvastatin Calcium 10 Mg Tablet) 10 mg PO BEDTIME [facility] Last Admin: 06/03/23 20:11 Dose: 10 mg Sodium Bicarbonate (Sodium Bicarbonate 650 Mg Tablet) 650 mg PO Q12HR [facility] Tamsulosin HCl (Tamsulosin Hcl 0.4 Mg Cap.Er.24h) 0.4 mg PO DAILY [facility] Last Admin: 06/04/23 09:00 Dose: 0.4 mg Discontinued Medications Atropine Sulfate (Atropine Sulfate Inj 1 Mg/10 Ml Disp.Syrin) 1 mg IVP ONCE ONE Stop: 06/03/23 13:12 Last Admin: 06/03/23 13:16 Dose: 1 mg Sodium Chloride (Sodium Chloride) 500 mls @ 500 mls/hr IV BOLUS ONE Stop: 06/03/23 14:45 Last Infusion: 06/03/23 18:38 Dose: Infused CEFTRIAXONE/D5W 1 GM PREMIX (Rocephin 1 Gm/50 Ml D5w) 1 gm in 50 mls @ 100 mls/hr IV ONCE ONE Stop: 06/03/23 14:59 Last Admin: 06/03/23 15:13 Dose: 100 mls/hr Azithromycin 500 mg/ Sodium (Chloride) 250 mls @ 250 mls/hr IV ONCE ONE Stop: 06/03/23 16:49 Last Admin: 06/03/23 20:10 Dose: 250 mls/hr Sodium Bicarbonate (Sodium Bicarbonate 650 Mg Tablet) 650 mg PO Q12H [facility] Opioid Naive vs. Tolerant Does Patient Take Opioids?: No Is Patient Opioid Naive?: Yes What is Opioid Naive?: *Opioid Naive implies the patient is not already taking opioids or not chronically receiving opioids on a daily basis. *PRN dosing is not "usually" associated with tolerance. *Patients are at higher risk of over-sedation and aspiration. Is Patient Opioid Tolerant?: No What is Opioid Tolerant?: *Opioid Tolerance implies less than the expected response to an opioid. *Acquired tolerance is defined by the patient taking 60mg of oral morphine daily (or equianalgesic dose of another opioid) for 1 week or more. *Often associated with chronic pain. *May take more than usual dose to achieve desired pain control. Review of Systems Constitutional: Reports Fatigue and Weakness Head: Reports Normocephalic and Atraumatic Eyes: Reports No symptoms Ears: Reports No symptoms Nose: Reports No symptoms Mouth: Reports No symptoms Throat: Reports No symptoms Cardiovascular: Reports No symptoms Respiratory: Reports No symptoms Gastrointestinal: Reports No symptoms Genitourinary: Reports No Symptoms Musculoskeletal: Reports No symptoms Endocrine: Reports No symptoms Hematology: Reports No symptoms Immunology: Reports No symptoms Neurological: Reports No symptoms Psychiatric: Reports No symptoms Physical examination Most Recent Vital Signs: Most Recent Vital Signs Temperature 97.7 F 06/04/23 10:00 Temperature Source Tympanic 06/04/23 10:00 Temperature Source Oral 06/03/23 13:07 Pulse Rate 54 L 06/04/23 10:00 Respiratory Rate 20 06/04/23 10:00 Blood Pressure 116/59 L 06/04/23 10:00 Blood Pressure Mean 78 06/04/23 10:00 Blood Pressure Right Arm 120/62 06/03/23 17:27 Blood Pressure Location Left Arm 06/04/23 10:00 Blood Pressure Position Supine 06/04/23 10:00 O2 Sat by Pulse Oximetry 100 06/04/23 10:00 Oxygen Delivery Method Nasal Cannula 06/04/23 10:00 Oxygen Flow Rate 2 06/04/23 10:00 Height 6 ft 06/03/23 17:27 Weight 140 lb 06/03/23 17:27 Telemetry Heart Rate 63 05/21/23 13:00 Telemetry SPO2 96 05/22/23 07:00 Appearance: Positive No Apparent Distress, Alert and Oriented x3 and Thin Skin: Positive Jaundice, Warm and Other (hyperkeratotic areas to bilateral feet, improved from last admission) HEENT: Positive Normocephalic and PERRLA Neck: Positive Supple and Midline Trachea Chest/Lungs: Positive Symmetrical With Equal Breath Sounds, Clear to Auscultation Bilaterally and Good Air Movement all 4 Lung Rose Heart: Positive RRR and Pulses Normal GI/: Positive Soft, Nontender, Bowel Sounds Normal, No Distention and No Organomegaly Musculoskeletal: Positive Not Examined Extremities: Positive Intact Peripheral Pulses, Stable Joints Without Laxity and Good ROM in All Joints Neurological: Positive Sensation Intact, Motor intact, Reflexes Intact, Alert and Oriented Psychiatric: Positive Oriented x4, Appropriate Mood, Appropriate Affect and Intact Memory Labs This Visit Labs This Visit: Labs This Visit 06/03/23 06/03/23 06/03/23 13:07 13:11 13:14 WBC 3.81 L RBC 3.50 L Hgb 10.1 L Hct 30.1 L MCV 86.0 MCH 28.9 MCHC 33.6 RDW Coeff of Elsa 14.7 Plt Count 136 L Immature Gran % (Auto) 0.3 Neut % (Auto) 74.5 Lymph % (Auto) 13.1 [place] % (Auto) 11.0 H Eos % (Auto) 0.8 Baso % (Auto) 0.3 Neut # (Auto) 2.8 Lymph # (Auto) 0.5 L [place] # (Auto) 0.4 Eos # (Auto) 0.0 Baso # (Auto) 0.0 Immature Gran # (Auto) 0.0 Puncture Site Rrad Base Excess -3.5 L O2 Saturation 99.0 H ABG pH 7.49 H ABG pCO2 26.0 L ABG pO2 122.0 H ABG HCO3 19.8 L ABG Total CO2 20.6 Evangelist Test Pos Hemoglobin 1.1 Oxyhemoglobin 95.9 Carboxyhemoglobin 1.4 Total Hemoglobin 10.5 L O2 Delivery Device Nc Oxygen Liter Flow 2.00 Sodium 131.2 L Potassium 4.17 Chloride 107.3 H Carbon Dioxide 19.5 L Anion Gap 8.57 BUN 36.0 H Creatinine 1.07 Estimated GFR (MDRD) 65.00 BUN/Creatinine Ratio 33.64 Glucose 114.7 H Lactic Acid 0.55 L Calcium 8.20 L Magnesium 2.24 Iron TIBC % Saturation Total Bilirubin 0.66 AST 28.2 ALT 33.9 Alkaline Phosphatase 67.1 Total Creatine Kinase 22.5 L Troponin I 0.017 Total Protein 5.34 L Albumin 2.78 L Globulin 2.56 Albumin/Globulin Ratio 1.08 TSH 5.400 H Free T4 1.33 Urine Color Urine Clarity Urine pH Ur Specific [place] Urine Protein Urine Glucose (UA) Urine Ketones Urine Blood Urine Nitrite Urine Bilirubin Urine Urobilinogen Ur Leukocyte Esterase Urine Microscopic RBC Urine Microscopic WBC Ur Squamous Epith Cells Ur Renal Epithelial Cell Amorphous Sediment Urine Bacteria Salicylate Level mg/dL Urine Opiates Screen Ur Oxycodone Screen Urine Methadone Screen Acetaminophen Ur Barbiturates Screen U Tricyclic Antidepress Ur Phencyclidine Scrn Ur Amphetamine Screen U Methamphetamines Scrn U Benzodiazepines Scrn Urine Cocaine Screen U Cannabinoids Screen Influ A Molecular Assay Influ B Molecular Assay RSV Antigen SARS CoV-2 RNA Rapid SHARLA 06/03/23 06/03/23 06/03/23 13:25 13:31 15:18 WBC RBC Hgb Hct MCV MCH MCHC RDW Coeff of Elsa Plt Count Immature Gran % (Auto) Neut % (Auto) Lymph % (Auto) [place] % (Auto) Eos % (Auto) Baso % (Auto) Neut # (Auto) Lymph # (Auto) [place] # (Auto) Eos # (Auto) Baso # (Auto) Immature Gran # (Auto) Puncture Site Base Excess O2 Saturation ABG pH ABG pCO2 ABG pO2 ABG HCO3 ABG Total CO2 Evangelist Test Hemoglobin Oxyhemoglobin Carboxyhemoglobin Total Hemoglobin O2 Delivery Device Oxygen Liter Flow Sodium Potassium Chloride Carbon Dioxide Anion Gap BUN Creatinine Estimated GFR (MDRD) BUN/Creatinine Ratio Glucose Lactic Acid Calcium Magnesium Iron TIBC % Saturation Total Bilirubin AST ALT Alkaline Phosphatase Total Creatine Kinase Troponin I 0.017 Total Protein Albumin Globulin Albumin/Globulin Ratio TSH Free T4 Urine Color Yellow Urine Clarity Turbid Urine pH 6.0 Ur Specific [place] 1.025 Urine Protein 2+ H Urine Glucose (UA) Negative Urine Ketones Negative Urine Blood 3+ H Urine Nitrite Negative Urine Bilirubin Negative Urine Urobilinogen 0.2 Ur Leukocyte Esterase 1+ H Urine Microscopic RBC 10-20 Urine Microscopic WBC Tntc Ur Squamous Epith Cells 20-30 Ur Renal Epithelial Cell 0-2 Amorphous Sediment 1+ Urine Bacteria 1+ Salicylate Level mg/dL < 1.00 Urine Opiates Screen Negative Ur Oxycodone Screen Negative Urine Methadone Screen Negative Acetaminophen < 10.0 L Ur Barbiturates Screen Negative U Tricyclic Antidepress Negative Ur Phencyclidine Scrn Negative Ur Amphetamine Screen Negative U Methamphetamines Scrn Negative U Benzodiazepines Scrn Positive H Urine Cocaine Screen Negative U Cannabinoids Screen Negative Influ A Molecular Assay Negative by naat Influ B Molecular Assay Negative by naat RSV Antigen Negative by naat SARS CoV-2 RNA Rapid SHARLA Positive H 06/04/23 06/04/23 05:15 05:20 WBC 3.19 L RBC 3.12 L Hgb 8.9 L Hct 27.4 L MCV 87.8 MCH 28.5 MCHC 32.5 RDW Coeff of Elsa 14.7 Plt Count 121 L Immature Gran % (Auto) 0.3 Neut % (Auto) 72.2 Lymph % (Auto) 14.7 [place] % (Auto) 11.9 H Eos % (Auto) 0.6 Baso % (Auto) 0.3 Neut # (Auto) 2.3 Lymph # (Auto) 0.5 L [place] # (Auto) 0.4 Eos # (Auto) 0.0 Baso # (Auto) 0.0 Immature Gran # (Auto) 0.0 Puncture Site Base Excess O2 Saturation ABG pH ABG pCO2 ABG pO2 ABG HCO3 ABG Total CO2 Evangelist Test Hemoglobin Oxyhemoglobin Carboxyhemoglobin Total Hemoglobin O2 Delivery Device Oxygen Liter Flow Sodium 132.3 L Potassium 4.40 Chloride 110.0 H Carbon Dioxide 16.5 L Anion Gap 10.20 BUN 28.3 H Creatinine 0.91 Estimated GFR (MDRD) 79.00 BUN/Creatinine Ratio 31.09 Glucose 105.5 Lactic Acid Calcium 7.76 L Magnesium Iron 26.1 L TIBC 198 L % Saturation 13 Total Bilirubin 0.51 AST 25.7 ALT 29.3 Alkaline Phosphatase 61.1 Total Creatine Kinase Troponin I Total Protein 5.03 L Albumin 2.53 L Globulin 2.50 Albumin/Globulin Ratio 1.01 TSH Free T4 Urine Color Urine Clarity Urine pH Ur Specific [place] Urine Protein Urine Glucose (UA) Urine Ketones Urine Blood Urine Nitrite Urine Bilirubin Urine Urobilinogen Ur Leukocyte Esterase Urine Microscopic RBC Urine Microscopic WBC Ur Squamous Epith Cells Ur Renal Epithelial Cell Amorphous Sediment Urine Bacteria Salicylate Level mg/dL Urine Opiates Screen Ur Oxycodone Screen Urine Methadone Screen Acetaminophen Ur Barbiturates Screen U Tricyclic Antidepress Ur Phencyclidine Scrn Ur Amphetamine Screen U Methamphetamines Scrn U Benzodiazepines Scrn Urine Cocaine Screen U Cannabinoids Screen Influ A Molecular Assay Influ B Molecular Assay RSV Antigen SARS CoV-2 RNA Rapid SHARLA Microbiology This Visit 06/03/23 13:15 Urine,Clean Catch Urine Culture - Preliminary Imaging Imaging: EXAM: CHEST CTA WITH CONTRAST (PULMONARY ARTERY) FINDINGS: Adequate opacification of the pulmonary arteries. No pulmonary embolus is identified. No enlarged mediastinal, hilar, or axillary nodes are identified. Several calcified mediastinal and hilar nodes, again noted, secondary to old granulomatous disease. Sternotomy and CABG, again noted. Stable cardiomegaly. No significant pericardial fluid/thickening. No pleural fluid. Suggestion of small hiatal hernia. Interval development of mild gaseous distension of the small air fluid level of the mid thoracic esophagus, suggesting either reflux or decreased esophageal motility. Moderate to severe bilateral gynecomastia, about the same. Visualized portions of the upper abdomen included in this examination of the chest again show a 1.4 cm cyst of the partially visualized liver right lobe. 2.1 cm cyst of the partially visualized right kidney, stable. Lung window images again show mild to moderate emphysema. Mild bronchial wall thickening, about the same. Stable mild biapical pleural thickening. Interval development of consolidation of dependent aspects of both lower lobes, moderate on the left and mild on the right. 10 mm spiculated pulmonary nodule in the left upper lobe on image number 22, stable since August 2022. 5 mm pulmonary nodule in the right middle lobe on image number 73, 5 mm nodule in the right lower lobe on image number 67, and a smaller nodule in the right upper lobe on image number 28, also stable since August 2022. Calcified granuloma of the right lower lobe, again noted. No pneumothorax. Bone window images show no significant lytic or sclerotic bone lesions. 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 IMPRESSION: 1. No pulmonary embolus is identified. 2. Interval development of pneumonia of dependent aspects of both lower lobes, moderate on the left and mild on the right. 3. Stable mild cardiomegaly. 4. 10 mm spiculated pulmonary nodule in the left upper lobe and several 5 mm an d smaller nodules on the right, stable since August 2022. If not already performed, PET scan is recommended for further evaluation. CT chest in 6 months is also recommended Review Statement Review Statement: I have independently reviewed and interpreted the labs/EKGs/imaging that were ordered by the ER provider. I have reviewed all outside records that are available currently in our EMR including imaging/notes/labs from previous visits. Plan Plan: 1. Community Acquired Pneumonia - azith and rocephin for abx coverage, sputum culture, legionella, mrsa ordered. nebs 2. Pancytopenia - nodules on CT scan concern for malignancy, likely contributing, checking occult stool to r/o GI bleed, iron studies low and ordered supplementation 3. Pulmonary nodules - concern for malignancy and recommending PET scan, will discuss with patient and family further plans and will send referrals on discharge if needed 4. Hyponatremia - mild, improving with fluids 5. UTI - recent treatment with cipro, urine culture pending with no growth currently, covered with azith and rocephin at this time, will follow 6. Acidosis secondary to acute illness, possible cancer, and CKD - started PO sodium bicarb DISPO: TBD, likely MNRC with hospice, speaking with family this afternoon to develop plans DVT Prophylaxis: Plavix Time Spent: Greater than 80 minutes spent with patient, 50% of the time spent with this patient was devoted to counseling and coordination of care. [facility]in minutes spent discussing advance care planning. Disposition: Admit to: Med/Surg Inpatient DNR Discussed Plan of Care with Dr. Mango Clarke Medications Medication Orders: Medications Ordered Category Date Time Status Acetaminophen [Tylenol] Meds 06/03/23 16:54 Active 650 mg PO Q4H PRN Albuterol Sulfate 0.083% Neb [Albuterol 0.083% Neb] Meds 06/03/23 17:46 Active 2.5 mg NEB Q6H PRN Azithromycin Inj [Zithromax] 500 mg Meds 06/04/23 09:00 Active 0.9 % Sodium Chloride [Sodium Chloride] 250 ml IV DAILY Ceftriaxone/D5w 1 gm Premix [Rocephin 1 gm/50 ml D5w] Meds 06/04/23 09:00 Active 1 gm in 50 ml IV DAILY Clopidogrel Bisulfate [Plavix] Meds 06/04/23 09:00 Active 75 mg PO DAILY Melatonin Meds 06/03/23 21:00 Active 6 mg PO BEDTIME Ondansetron HCl/Pf [Zofran 4 mg/2 ml] Meds 06/03/23 16:54 Active 4 mg IVP Q6H PRN Rosuvastatin Calcium [Crestor] Meds 06/03/23 21:00 Active 10 mg PO BEDTIME Sodium Chloride 0.9% [Sodium Chloride] 1,000 ml Meds 06/03/23 17:00 Active IV 50 mls/hr Tamsulosin HCl [Flomax] Meds 06/04/23 09:00 Active 0.4 mg PO DAILY icosapent ethyl [Vascepa] Meds 06/03/23 21:00 Active 2 gm PO BID
[2023-06-04 12:00] LABS: BORDETELLA PARAPERTUSSIS (PCR) NOT DETECTED (NOT DETECT); BORDETELLA PERTUSSIS (PCR) NOT DETECTED (NOT DETECT); CHLAMYDIA PNEUMONIAE (PCR) NOT DETECTED (NOT DETECT); CORONAVIRUS 229E (PCR) NOT DETECTED (NOT DETECT); CORONAVIRUS HKU1 (PCR) NOT DETECTED (NOT DETECT); CORONAVIRUS NL63 (PCR) NOT DETECTED (NOT DETECT); CORONAVIRUS OC43 (PCR) NOT DETECTED (NOT DETECT); HUMAN METAPNEUMOVIRUS (PCR) NOT DETECTED (NOT DETECT); HUMAN RHINOVIRUS/ENTEROV (PCR) NOT DETECTED (NOT DETECT); INFLUENZA B (PCR) NOT DETECTED (NOT DETECT); MYCOPLASMA PNEUMONIAE (PCR) NOT DETECTED (NOT DETECT); PARAINFLUENZA VIRUS 1 (PCR) NOT DETECTED (NOT DETECT); PARAINFLUENZA VIRUS 2 (PCR) NOT DETECTED (NOT DETECT); PARAINFLUENZA VIRUS 3 (PCR) NOT DETECTED (NOT DETECT); PARAINFLUENZA VIRUS 4 (PCR) NOT DETECTED (NOT DETECT); RESPIRATORY SYNCYTIAL V (PCR) NOT DETECTED (NOT DETECT)
[2023-06-04] MEDS: MORPHINE 2 MG/ML SYRINGE IVP PRN (12:12)
[2023-06-04 12:52] LABS: ADENOVIRUS (PCR) NOT DETECTED (NOT DETECT); SARS_COV_2 (PCR) DETECTED (NOT DETECT)
[2023-06-04] MEDS: SODIUM BICARBONATE PO SCH (13:09)
[2023-06-04] MEDS: NORCO 5-325 PO PRN ×2 (13:35→22:19)
[2023-06-04] MEDS: ATIVAN IVP PRN (14:29)
[2023-06-04] MEDS: FERROUS SULFATE PO SCH (20:18)
[2023-06-05] MEDS: ATIVAN IVP PRN (04:28)
[2023-06-05 05:33] LABS: BASOPHILS % (AUTO) 0.3 % (0.0-3.0); EOSINOPHILS % (AUTO) 0.3 % (0.0-7.0); HEMATOCRIT 27.8 % (42.0-52.0); HEMOGLOBIN 8.9 g/dl (14.0-18.0); IMMATURE GRANULOCYTE % (AUTO) 0.3 % (0.0-5.0); LYMPHOCYTES # (AUTO) 0.4 K/uL (0.60-3.4); LYMPHOCYTES % (AUTO) 11.7 (10.0-50.0); MEAN CORPUSCULAR HEMOGLOBIN 28.2 pg (27.0-31.0); MONOCYTES # (AUTO) 0.3 K/uL (0.4-2.0); MONOCYTES % (AUTO) 9.8 (0-10); NEUTROPHILS # (AUTO) 2.5 K/ul (2.0-6.9); NEUTROPHILS % (AUTO) 77.6 % (42.2-75.2); PLATELET COUNT 115 10^3/uL (140-440); RDW COEFFICIENT OF VARIATION 14.7 % (11.6-14.8); RED BLOOD COUNT 3.16 10^6/ul (4.70-6.10); WHITE BLOOD COUNT 3.25 K/ul (4.2-10.2)
[2023-06-05 05:50] LABS: ALANINE AMINOTRANSFERASE 25.7 U/L (0-50); ALBUMIN 2.53 g/dL (3.5-5.0); ALKALINE PHOSPHATASE 64.7 U/L (56-119); ASPARTATE AMINO TRANSFERASE 22.4 U/L (17-59); BILIRUBIN,TOTAL 0.5 mg/dL (0.2-1.3); BLOOD UREA NITROGEN 19.9 mg/dL (9-20); CALCIUM 7.86 mg/dL (8.4-10.2); CARBON DIOXIDE 16.6 mmol/L (22-30.0); CHLORIDE 110.2 mmol/L (98-107); CREATININE 0.79 mg/dL (0.60-1.10); GLUCOSE 100.8 mg/dL (74-106); POTASSIUM 4.09 mmol/L (3.5-5.1); SODIUM 133.8 mmol/L (134.5-145); TOTAL PROTEIN 5.14 g/dL (6.3-8.2)
[2023-06-05] MEDS: MORPHINE 2 MG/ML SYRINGE IVP PRN (08:20)
--- NOTE | 2023-06-05 09:02 | PCM.PROG ---
Provider Provider[facility]IK[facility] Chief Complaint Chief Complaint: AMS/OVERDOSE BL PNA AND UTI Subjective Subjective: Patient continuing to have pain. Persistent cough. VSS Objective Appearance: Positive Alert and Oriented x3 and Ill-Appearing Chest/Lungs: Positive Symmetrical With Equal Breath Sounds, Clear to Au scultation Bilaterally and Good Air Movement all 4 Lung Rose Heart: Positive RRR and Pulses Normal GI/: Positive Soft, Nontender, Bowel Sounds Normal and No Distention Musculoskeletal: Positive Not Examined Neurological: Positive Sensation Intact, Motor intact, Reflexes Intact, Alert and Oriented Vital Signs Vital Signs: Vital Signs: Last 24 Hours 06/04/23 10:00 06/04/23 10:00 06/04/23 14:00 Temperature 97.7 F Temperature Source Tympanic Pulse Rate 54 L 59 L Respiratory Rate 20 22 H Blood Pressure 116/59 L 120/57 L Blood Pressure Mean 78 78 Blood Pressure Location Left Arm Right Arm Blood Pressure Position Supine Sitting O2 Sat by Pulse Oximetry 100 99 100 Oxygen Delivery Method Nasal Cannula Nasal Cannula Nasal Cannula Oxygen Flow Rate 2 2 2 06/04/23 14:00 06/04/23 17:39 06/04/23 19:53 Temperature Temperature Source Pulse Rate 74 Respiratory Rate 17 Blood Pressure 113/58 L Blood Pressure Mean 76 Blood Pressure Location Right Arm Blood Pressure Position Sitting O2 Sat by Pulse Oximetry 99 98 100 Oxygen Delivery Method Nasal Cannula Nasal Cannula Nasal Cannula Oxygen Flow Rate 2 2 2 06/04/23 20:00 06/04/23 21:20 06/05/23 02:00 Temperature 96.7 F L Temperature Source Temporal Artery Scan Pulse Rate 62 56 L Respiratory Rate 16 15 Blood Pressure 104/49 L 117/59 L Blood Pressure Mean 67 78 Blood Pressure Location Right Arm Right Arm Blood Pressure Position Supine Supine O2 Sat by Pulse Oximetry 100 100 Oxygen Delivery Method Nasal Cannula Nasal Cannula Nasal Cannula Oxygen Flow Rate 2 2 2 06/05/23 05:26 06/05/23 05:28 Temperature 97.3 F L Temperature Source Temporal Artery Scan Pulse Rate 69 Respiratory Rate 15 Blood Pressure 108/60 Blood Pressure Mean 76 Blood Pressure Location Right Arm Blood Pressure Position Supine O2 Sat by Pulse Oximetry 99 100 Oxygen Delivery Method Room Air Nasal Cannula Oxygen Flow Rate 2 2 Lab Results Lab Results: Lab Results: Last 24 Hours 06/05/23 06/04/23 05:01 11:55 WBC 3.25 L RBC 3.16 L Hgb 8.9 L Hct 27.8 L MCV 88.0 MCH 28.2 MCHC 32.0 RDW Coeff of Elsa 14.7 Plt Count 115 L Immature Gran % (Auto) 0.3 Neut % (Auto) 77.6 H Lymph % (Auto) 11.7 Bland % (Auto) 9.8 Eos % (Auto) 0.3 Baso % (Auto) 0.3 Neut # (Auto) 2.5 Lymph # (Auto) 0.4 L Bland # (Auto) 0.3 L Eos # (Auto) 0.0 Baso # (Auto) 0.0 Immature Gran # (Auto) 0.0 Sodium 133.8 L Potassium 4.09 Chloride 110.2 H Carbon Dioxide 16.6 L Anion Gap 11.09 BUN 19.9 Creatinine 0.79 Estimated GFR (MDRD) 93.00 BUN/Creatinine Ratio 25.18 Glucose 100.8 Calcium 7.86 L Total Bilirubin 0.50 AST 22.4 ALT 25.7 Alkaline Phosphatase 64.7 Total Protein 5.14 L Albumin 2.53 L Globulin 2.61 Albumin/Globulin Ratio 0.96 Adenovirus (PCR) Not detected B. pertussis DNA (PCR) Not detected B.parapertussis DNA PCR Not detected C. pneumoniae DNA (PCR) Not detected Coronavirus OC43 (PCR) Not detected Coronavirus HKU1 (PCR) Not detected Coronavirus 229E (PCR) Not detected Coronavirus NL63 (PCR) Not detected Human Metapneumovir PCR Not detected Influenza Type A (PCR) Not detected Influenza B (RT-PCR) Not detected M. pneumoniae (PCR) Not detected Parainfluenza 1 (PCR) Not detected Parainfluenza 2 (PCR) Not detected Parainfluenza 3 (PCR) Not detected Parainfluenza 4 (PCR) Not detected RSV (PCR) Not detected Entero/Rhino (PCR) Not detected SARS-CoV-2 (PCR) Detected H Additional Comments Additional Comments: I have independently reviewed and interpreted the labs/EKGs/imaging ordered during this hospital stay. I have reviewed outside records that are available in our EMR that pertain to medical stay including imaging/notes/labs from previous visits. Active Medications Active Medications: Medications Generic Name Dose Route Start Last Admin Trade Name Freq PRN Reason Stop Dose Admin Acetaminophen 650 mg 06/03/23 16:54 06/04/23 00:23 Acetaminophen 325 Mg Tablet PO 650 mg Q4H PRN Administration Mild Pain Hydrocodone Bitart/Acetaminophen 1 tab 06/04/23 14:55 06/05/23 03:55 Hydrocodone Bit/Acetaminophen 5/325 Mg Tablet PO 1 tab Q4HR PRN Administration Pain Albuterol Sulfate 2.5 mg 06/03/23 17:46 Albuterol Sulfate 0.083% Vial.Neb NEB Q6H PRN Wheezing Clopidogrel Bisulfate 75 mg 06/04/23 09:00 06/05/23 08:22 Clopidogrel Bisulfate 75 Mg Tablet PO 75 mg DAILY SHIRLENE Administration Ferrous Sulfate 324 mg 06/04/23 21:00 06/05/23 08:23 Ferrous Sulfate 324 Mg Tablet. PO 324 mg BID SHIRLENE Administration CEFTRIAXONE/D5W 1 GM PREMIX 1 gm in 50 mls @ 75 mls/hr 06/04/23 09:00 06/05/23 08:22 Rocephin 1 Gm/50 Ml D5w IV 06/07/23 08:59 75 mls/hr DAILY SHIRLENE Administration Azithromycin 500 mg/ Sodium 250 mls @ 250 mls/hr 06/04/23 09:00 06/04/23 09:48 Chloride IV 06/07/23 08:59 250 mls/hr DAILY SHIRLENE Administration Sodium Chloride 1,000 mls @ 50 mls/hr 06/03/23 17:00 06/04/23 16:40 Sodium Chloride IV 50 mls/hr .Q20H SHIRLENE Administration Lorazepam 1 mg 06/04/23 14:55 06/05/23 04:28 Lorazepam Inj 2 Mg/Ml Vial IVP 1 mg Q2H PRN Administration Anxiety Melatonin 6 mg 06/03/23 21:00 06/04/23 20:17 Melatonin 3 Mg Tablet PO 6 mg BEDTIME SHIRLENE Administration Morphine Sulfate 2 mg 06/04/23 14:55 06/05/23 08:20 Morphine Sulfate 2 Mg/Ml Syringe IVP 2 mg Q2H PRN Administration Pain Non-Formulary Medication 2 gm 06/03/23 21:00 06/05/23 08:24 Icosapent Ethyl [Vascepa] PO Not Given BID SHIRLENE Ondansetron HCl 4 mg 06/03/23 16:54 Ondansetron Hcl/Pf 4 Mg/2 Ml Sdv IVP Q6H PRN Nausea / Vomiting Rosuvastatin Calcium 10 mg 06/03/23 21:00 06/04/23 20:19 Rosuvastatin Calcium 10 Mg Tablet PO 10 mg BEDTIME SHIRLENE Administration Sodium Bicarbonate 650 mg 06/04/23 12:30 06/05/23 08:23 Sodium Bicarbonate 650 Mg Tablet PO 650 mg Q12HR SHIRLENE Administration Tamsulosin HCl 0.4 mg 06/04/23 09:00 06/05/23 08:23 Tamsulosin Hcl 0.4 Mg Cap.Er.24h PO 0.4 mg DAILY SHIRLENE Administration Plan Plan: 1. Community Acquired Pneumonia - azith and rocephin for abx coverage, sputum culture, legionella, mrsa ordered. nebs; patient had positive blood culture for gram +1 cocci - likely contaminant, repeating cultures today 2. Pancytopenia - nodules on CT scan concern for malignancy, likely contributing, checking occult stool to r/o GI bleed, iron studies low and ordered supplementation 3. Pulmonary nodules - concern for malignancy and recommending PET scan, will discuss with patient and family further plans and will send referrals on discharge if needed 4. Hyponatremia - mild, improving with fluids 5. UTI - recent treatment with cipro, urine culture pending with no growth currently, covered with azith and rocephin at this time, will follow 6. Acidosis secondary to acute illness, possible cancer, and CKD - started PO sodium bicarb 7. Comfort measures - morphine Q2H prn, ativan Q2H prn Spoke extensively with patient and nephew Rikki yesterday regarding plan of care and concern for cancer. Patient requesting to be out of pain and comfortable. Discussed hospice care and patient stated this is what he wants, but does want to continue to treat the pneumonia if necessary at this time. Nephew agrees with patient's wishes. Residential hospice contacted and waiting acceptance at this time. Review Statement Review Statement: I have personally discussed and reviewed the patient's visit/currently labs/imaging/decision making with Dr. Clarke, my supervising attending. Greater that 50 minutes spent with patient, 50% of the time spent with this patient was devoted to counseling and coordination of care.
[2023-06-05] MEDS: SODIUM BICARBONATE PO SCH (17:13)
[2023-06-06 05:29] LABS: HEMATOCRIT 27.9 % (42.0-52.0); HEMOGLOBIN 8.9 g/dl (14.0-18.0); MEAN CORPUSCULAR HEMOGLOBIN 28.3 pg (27.0-31.0); MEAN CORPUSCULAR HGB CONC 31.9 (31.8-35.4); MEAN CORPUSCULAR VOLUME 88.9 fl (80.0-94.0); PLATELET COUNT 115 10^3/uL (140-440); RDW COEFFICIENT OF VARIATION 14.9 % (11.6-14.8); RED BLOOD COUNT 3.14 10^6/ul (4.70-6.10); WHITE BLOOD COUNT 3.92 K/ul (4.2-10.2)
[2023-06-06 05:43] LABS: ALANINE AMINOTRANSFERASE 23.5 U/L (0-50); ALBUMIN 2.37 g/dL (3.5-5.0); ALKALINE PHOSPHATASE 61.8 U/L (56-119); ASPARTATE AMINO TRANSFERASE 22.8 U/L (17-59); BILIRUBIN,TOTAL 0.44 mg/dL (0.2-1.3); BLOOD UREA NITROGEN 15.7 mg/dL (9-20); CALCIUM 7.96 mg/dL (8.4-10.2); CARBON DIOXIDE 18.3 mmol/L (22-30.0); CHLORIDE 112.5 mmol/L (98-107); CREATININE 0.82 mg/dL (0.60-1.10); GLUCOSE 98.3 mg/dL (74-106); POTASSIUM 4.23 mmol/L (3.5-5.1); SODIUM 135.1 mmol/L (134.5-145); TOTAL PROTEIN 4.91 g/dL (6.3-8.2)
[2023-06-06 05:58] LABS: ANISOCYTOSIS NOT PRESENT (NOT PRESENT)
[2023-06-06] MEDS: TRANSDERM-SCOP 1.5 MG PATCH TD SCH (09:00)
--- NOTE | 2023-06-06 09:12 | DCSUM ---
Admission Date Admission Date: 06/03/23 Discharge Date Discharge Date: 06/06/23 Admission Diagnosis Admission Diagnosis: 1. Community Acquired Pneumonia 2. Pancytopenia 3. Pulmonary nodules 4. Hyponatremia 5. UTI 6. Acidosis secondary to acute illness, possible cancer, and CKD Discharge Diagnosis Discharge Diagnosis: 1. Community Acquired Pneumonia - Unchanged 2. Pancytopenia - Unchanged 3. Pulmonary nodules 4. Hyponatremia - Resolved 5. UTI - r/o 6. Acidosis secondary to acute illness, possible cancer, and CKD - Unchanged 7. Comfort measures Hospital Provider Hospital Provider: CHIKA OBRIEN, [facility] Primary [facility] Physician Primary Care Physician: BRANDI BEKCER MD Summary of History and Physical Summary of History and Physical: 88 yo male presented to ER from [facility] for altered mental status. ER provider reports that residential reported that he was difficult to arouse. On arrival to the ER, patient's HR was found to be in upper 30s to low 40s. He was given atropine and HR increased to 70s-80s and became more awake. Unsure if cause was from benzos or metoprolol. Poison control was contacted in ER and recommended 12 hour observation. Closed case this am. Patient was found to have bilateral pneumonia and is requiring 2L of oxygen still at this time. He was recently admitted to this facility on 05/18 for Covid. He was given remdesivir, steroids, nebs, and required oxygen. Still requiring 2L at this time. He also was found to be in metabolic acidosis which was treated with bicarb gtt. WBC count still low and platelets trending down again. Concern for other viral syndrome vs cancer due to pancytopenia. Per Dr. Becker that follows patient at residential. Patient is not ambulating at all. He was experiencing urinary retention approx. 1 week ago. Molina was anchored and UA sent. He was found to have proteus in the urine and was treated with course of Cipro. UA still concerning and reflexed to culture. No growth present at this time. Admitted for treatment of CAP and pancytopenia. Hospital Course Subjective: Initially, patient was treated for CAP with azithromycin and rocephin and nebs. Blood cultures were obtained in the ER based on WBC count. One culture revealed staph hominis - likely contaminant based on clinical presentation. Patient has continued to remain pancytopenic despite treatment. Discussed CT scan that showed pulmonary nodules - concern for malignancy and recommending PET scan. On 06/04, patient decided he would like to return to the residential on hospice. At that time, he wanted to continue the antibiotics if they were helping. In addition, he had mild hyponatremia that resolved with fluids. However, bicarb level remained low. UA checked and was suspicious. Urine culture negative. For pain/comfort measures, patient has been receiving morphine 2 mg Q2H prn and ativan 1 mg Q2H prn as well as norco Q4H prn. Residential hospice accepted patient under their program and will follow with him at the residential. Stopped antibiotics per patient wishes. Sent with rx for pain control and scopolamine patch for secretions. Appearance: Pleasant, No Apparent Distress and Ill-appearing HEENT: MMM, Supple and No JVD CVS: No Murmur Abdomen: Soft, Non-Tender and No Distention Respiratory: No Dyspnea Extremities: No Edema Vital Signs: Most Recent Vital Signs Temperature 97.3 F L 06/06/23 06:00 Temperature Source Temporal Artery Scan 06/06/23 06:00 Temperature Source Oral 06/03/23 13:07 Pulse Rate 82 06/06/23 06:00 Respiratory Rate 22 H 06/06/23 06:00 Blood Pressure 124/70 06/06/23 06:00 Blood Pressure Mean 88 06/06/23 06:00 Blood Pressure Right Arm 120/62 06/03/23 17:27 Blood Pressure Location Left Arm 06/06/23 02:00 Blood Pressure Position Supine 06/06/23 06:00 O2 Sat by Pulse Oximetry 99 06/06/23 06:00 Oxygen Delivery Method Nasal Cannula 06/06/23 06:00 Oxygen Flow Rate 2 06/06/23 06:00 Height 6 ft 06/03/23 17:27 Weight 140 lb 06/03/23 17:27 Telemetry Type Bedside Monitor 06/06/23 07:00 Telemetry Monitoring Continues 06/06/23 07:00 Irregular Telemetry Rate (Approximate) 80-90 BPM 06/06/23 07:00 Telemetry Heart Rate 82 06/06/23 01:00 Telemetry SPO2 100 06/06/23 01:00 EKG QRS Interval 0.08 06/06/23 07:00 Telemetry Strip Reading A- Fib 06/06/23 07:00 Lab Results Last 24 Hours: 06/06/23 05:07 WBC 3.92 L RBC 3.14 L Hgb 8.9 L Hct 27.9 L MCV 88.9 MCH 28.3 MCHC 31.9 RDW Coeff of Elsa 14.9 H Plt Count 115 L Neutrophils % (Manual) 72.0 Band Neutrophils % 8.0 H Lymphocytes % (Manual) 9.0 L Monocytes % (Manual) 6.0 Reactive Lymphocytes 5.0 Anisocytosis Not present Sodium 135.1 Potassium 4.23 Chloride 112.5 H Carbon Dioxide 18.3 L Anion Gap 8.53 BUN 15.7 Creatinine 0.82 Estimated GFR (MDRD) 89.00 BUN/Creatinine Ratio 19.14 Glucose 98.3 Calcium 7.96 L Total Bilirubin 0.44 AST 22.8 ALT 23.5 Alkaline Phosphatase 61.8 Total Protein 4.91 L Albumin 2.37 L Globulin 2.54 Albumin/Globulin Ratio 0.93 Discharge Instructions Discharge Planning: Discharge Planning > 40 minutes If patient is discharged with left ventricular systolic dysfunction: NA Discharged with a beta lori? [] If no, why not? [] Discharged with an vicky/arb? [] If no, why not? [] DX: COMMUNITY ACQUIRED PNEUMONIA, PULMONARY NODULES SUSPICIOUS FOR MALIGNANCY RX: MORPHINE, ATIVAN, SCOPOLAMINE SOFT DIET [facility]UME CARE PCP PRN Discharge Medications: Medications at Discharge (Home Meds & RX) epinephrine 0.3 mg/0.3 mL injection, auto-injector (EpiPen) 0.3 mg (0.3 mL) IM ONCE #1 ea 05/07/22 amlodipine 5 mg tablet 5 mg PO BID 90 days #180 tab-caps 06/15/22 losartan 100 mg tablet 100 mg PO DAILY #90 tabs 06/15/22 spironolactone 25 mg tablet 12.5 mg (1/2 x 25 mg) PO QDAY #90 tabs 07/23/22 Vascepa 1 gram capsule (icosapent ethyl) See Rx Instructions .Route .COMPLEX #120 caps 10/21/22 rosuvastatin 10 mg tablet (Crestor) 10 mg PO BEDTIME 90 days #90 tab-caps 02/18/23 clopidogrel 75 mg tablet 75 mg PO DAILY 90 days #90 tab-caps 03/17/23 nystatin 100,000 unit/gram topical cream 1 applic topical TID PRN wound healing #1 g 05/22/23 lorazepam 0.5 mg tablet 0.5 mg PO TID PRN anxiety #30 tabs 05/24/23 acetaminophen 325 mg tablet 650 mg PO Q6H PRN fever or pain 06/03/23 albuterol sulfate 2.5 mg/3 mL (0.083 %) solution for nebulization 2.5 mg NEB Q6H PRN shortness of breath or wheezing 06/03/23 ammonium lactate 5 % lotion 1 applic topical DAILY PRN dryness 06/03/23 ciprofloxacin HCl 500 mg tablet (Cipro) 500 mg PO BID 06/03/23 melatonin 5 mg capsule 5 mg PO BEDTIME 06/03/23 metoprolol tartrate 50 mg tablet 50 mg PO DAILY 06/03/23 tamsulosin 0.4 mg capsule (Flomax) 0.4 mg PO DAILY 06/03/23 Discharge Plan Discharge Discharge Orders: Discharge Patient (ONCE); Ordered 06/06/23 Ordered By: MT CLEMENTE Activity Restrictions/Additional Instructions: Soft diet Activity as tolerated Hospice to assume care PCP as needed Medications: [place] Q4H prn Morphine Q2H prn Ativan Q2H prn Scopolamine Q72H patch Instructions: Lung Cancer (GEN), Hospice Care (GEN) Patient Disposition: TRANSFER [facility] Prescriptions: New hydrocodone-acetaminophen 5-325 mg Tablet 1 tab PO Q4HR PRN (Reason: pain) Qty: 60 0RF lorazepam 2 mg/mL Solution 1 mg IM Q2H PRN (Reason: agitation) Qty: 100 0RF scopolamine base [Transderm-Scop] 1 mg over 3 days Patch 3 Day 1 patch transdermal Q72HR Qty: 30 0RF morphine 2 mg/mL Syringe 2 mg IM Q2H PRN (Reason: pain) Qty: 100 0RF Continued epinephrine [EpiPen] 0.3 mg/0.3 mL auto-injector 0.3 mg IM ONCE Qty: 1 1RF Rx Instructions: as a single dose spironolactone 25 mg tablet 12.5 mg PO QDAY Qty: 90 1RF icosapent ethyl [Vascepa] 1 gram capsule See Rx Instructions .ROUTE .COMPLEX Qty: 120 5RF Dose Instruction: TAKE TWO CAPSULES TWICE A DAY NAME BRAND ONLY Rx Instructions: TAKE TWO CAPSULES TWICE A DAY NAME BRAND ONLY rosuvastatin [Crestor] 10 mg tablet 10 mg PO BEDTIME 90 Days Qty: 90 1RF clopidogrel 75 mg tablet 75 mg PO DAILY 90 Days Qty: 90 1RF lorazepam 0.5 mg tablet 0.5 mg PO TID PRN (Reason: anxiety) Qty: 30 0RF ammonium lactate 5 % lotion 1 applic topical DAILY PRN (Reason: dryness) tamsulosin [Flomax] 0.4 mg capsule 0.4 mg PO DAILY melatonin 5 mg capsule 5 mg PO BEDTIME metoprolol tartrate 50 mg tablet 50 mg PO DAILY acetaminophen 325 mg Tablet 650 mg PO Q6H PRN (Reason: fever or pain) albuterol sulfate 2.5 mg /3 mL (0.083 %) Solution For Nebulization 2.5 mg NEB Q6H PRN (Reason: shortness of breath or wheezing) nystatin 100,000 unit/gram Cream 1 applic topical TID PRN (Reason: wound healing) Qty: 1 0RF amlodipine 5 mg tablet 5 mg PO BID 90 Days Qty: 180 5RF losartan 100 mg tablet 100 mg PO DAILY Qty: 90 2RF Rx Instructions: REPLACES LISINOPRIL Discontinued ciprofloxacin HCl [Cipro] 500 mg tablet 500 mg PO BID Did you review [place] [employer] for ALL controlled substances?: No Discussed opioids are addictive and Narcan is available by prescription or from pharmacy.: No Condition: Fair
[2023-06-06 11:08] VITALS: BP 131/73; PULSE 92; RESP 25; TEMP 97.6
== END 2023-06-06 11:30 | DRG 177 ==
LOC: ED 12:58 → SCU 16:34
PROVIDERS: ADMIT Hospitalist; ATTEND Nurse Practitioner Family
DX: R91.1 Solitary pulmonary nodule; N39.0 Urinary tract infection, site not specified; E87.1 Hypo-osmolality and hyponatremia; N18.9 Chronic kidney disease, unspecified; J12.82 Pneumonia due to coronavirus disease 2019; J96.00 Acute respiratory failure, unspecified whether with hypoxia or hypercapnia; D61.818 Other pancytopenia; U07.1 COVID-19; E87.21 Acute metabolic acidosis